=== PATIENT | female | born 1975 | race Caucasian/White ===

== ENCOUNTER → 2016-04-02 | Outpatient (CLI) | payer BC ==
[~2016-04-02] MED LIST: DROS1TAB24 PO; NORT25CA PO
== END | disposition home or self-care (01) ==
LOC: C.PAPS 08:21
PROVIDERS: ATTEND Obstetrics & Gynecology
DX: Z01.419 Encounter for gynecological examination (general) (routine) without abnormal findings (principal)

== ENCOUNTER → 2016-07-11 | Outpatient (CLI) | payer BC ==
--- NOTE | 2016-07-11 11:11 | DIAGNOSTIC IMAGING REPORT ---
RIGHT FOOT 3 VIEWS CLINICAL HISTORY: Right foot pain. FINDINGS: 3 views of the right foot are compared to study dated 07/26/2015. The skeletal structures are well mineralized. No fracture is seen. The joint spaces of the foot are well-maintained. A large plantar calcaneal enthesophyte is observed. The overlying soft tissues are normal in appearance. IMPRESSION: No acute bony abnormality is seen in the right foot noting a large plantar heel spur. Electronically signed by: Aries Enriquez M.D. 07/11/2016 11:09 AM Dictated Date/Time: 07/11/2016 11:08 AM
== END | disposition home or self-care (01) ==
LOC: C.RDSM 12:03
PROVIDERS: ATTEND Physician Assistant
DX: M79.671 Pain in right foot (principal)

== ENCOUNTER → 2016-11-04 | Outpatient (CLI) | payer BC ==
--- NOTE | 2016-11-04 10:09 | DIAGNOSTIC IMAGING REPORT ---
RIGHT HAND MIN 3 VIEWS ROUTINE CLINICAL HISTORY: M13.0 Polyarthritis, [id number] right hand pain COMPARISON: None. DISCUSSION: The bony mineralization appears normal. There are no fractures or subluxations. The joint spaces appear preserved for age. There are no erosive changes. IMPRESSION: No bony abnormalities identified. Electronically signed by: Alden Justice M.D. 11/04/2016 10:08 AM Dictated Date/Time: 11/04/2016 10:07 AM
--- NOTE | 2016-11-04 10:24 | DIAGNOSTIC IMAGING REPORT ---
LEFT HAND MIN 3 VIEWS ROUTINE CLINICAL HISTORY: M13.0 Polyarthritis, [id number] Hand pain, rightBothRAD7 pain. COMPARISON: None. DISCUSSION: The bones and joint spaces appear intact. There is no evidence of fracture, dislocation or bony disease. There is no evidence for soft tissue swelling. IMPRESSION: Negative study. The above report was generated using voice recognition software. It may contain grammatical, syntax or spelling errors. Electronically signed by: Damien Back M.D. 11/04/2016 10:23 AM Dictated Date/Time: 11/04/2016 10:22 AM
--- NOTE | 2016-11-04 10:25 | DIAGNOSTIC IMAGING REPORT ---
SI JOINTS 3 OR MORE VIEWS CLINICAL HISTORY: Low back pain. COMPARISON STUDY: CT of the abdomen and pelvis February 03, 2013. FINDINGS: The sacroiliac joints are intact without evidence for ankylosis. No fracture or suspicious lesion is identified. There is mild osteoarthrosis of both sacroiliac joints. No definite erosions are identified. 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 Electronically signed by: Kike Agudelo M.D. 11/04/2016 10:24 AM Dictated Date/Time: 11/04/2016 10:22 AM
== END | disposition home or self-care (01) ==
LOC: C.RAD1850 09:33
PROVIDERS: ATTEND Internal Medicine Rheumatology
DX: M54.5 Low back pain (principal); M13.0 Polyarthritis, unspecified; M79.641 Pain in right hand

== ENCOUNTER → 2017-05-29 | Outpatient (CLI) | payer BC | END | disposition home or self-care (01) | LOC: C.PAPS 15:14 | PROVIDERS: ATTEND Obstetrics & Gynecology | DX: Z01.419 Encounter for gynecological examination (general) (routine) without abnormal findings (principal) ==

== ENCOUNTER → 2017-06-09 | Outpatient (CLI) | payer BC ==
--- NOTE | 2017-06-09 15:13 | DIAGNOSTIC IMAGING REPORT ---
Thyroid ultrasonography CLINICAL HISTORY: Abnormal thyroid function tests COMPARISON STUDY: No previous studies for comparison. FINDINGS: The right lobe of thyroid measures 54 x 15 x 20 mm. The left lobe measures 50 x 17 x 15 mm. No thyroid masses are visualized. IMPRESSION: Unremarkable thyroid ultrasound. Electronically signed by: Alden Justice M.D. 06/09/2017 3:11 PM Dictated Date/Time: 06/09/2017 3:11 PM
== END | disposition home or self-care (01) ==
LOC: C.ULTR 14:47
PROVIDERS: ATTEND Family Medicine
DX: E07.89 Other specified disorders of thyroid (principal)

== ENCOUNTER 2017-07-08 14:26 | Emergency (ER) | payer BC ==
[~2017-07-08] VITALS: Ht 177.8 cm; Wt 111.8 kg
[2017-07-08 14:30] VITALS: TEMP 37; Ht 177.8 cm; Wt 111.8 kg
[2017-07-08] MEDS ORDERED: SODIUM CHLORIDE 0.9% 1000ML 1,000 ML IV STA (14:41)
[2017-07-08] MEDS ORDERED: DiphenhydrAMINE HCL 50 MG/ML VIAL IV STA (14:41)
[2017-07-08] MEDS ORDERED: PROCHLORPERAZINE 5 MG/ML 2 ML VIAL IV STA (14:41)
[2017-07-08 15:10] LABS: BASO % 0.5 %; BASO ABS # 0.04 K/uL (0-0.2); EOS % 1.7 %; EOS ABS # 0.14 K/uL (0-0.5); HEMATOCRIT 39.4 % (37-47); HEMOGLOBIN 13.6 g/dL (12.0-16.0); IG# 0.03 K/uL (0.00-0.02); LYMPH % 31.1 %; LYMPH ABS # 2.61 K/uL (1.2-3.4); MEAN CELL VOLUME 85.3 fL (80-100); MEAN CORPUSCULAR HEMOGLOBIN 29.4 pg (25-34); MEAN CORPUSCULAR HGB CONC 34.5 g/dl (32-36); MONO % 9.2 %; MONO ABS # 0.77 K/uL (0.11-0.59); NEUT % 57.1 %; PLATELET COUNT 310 K/uL (130-400); RED CELL DISTRIBUTION WIDTH CV 12.9 % (11.5-14.5); RED CELL DISTRIBUTION WIDTH SD 40.2 fL (36.4-46.3); WHITE BLOOD COUNT 8.39 K/uL (4.8-10.8)
[2017-07-08 15:31] LABS: INR 0.9 (0.9-1.1); PTT PATIENT 25.4 SECONDS (21.0-31.0)
--- NOTE | 2017-07-08 15:38 | DIAGNOSTIC IMAGING REPORT ---
HEAD WITHOUT CONTRAST (CT) CLINICAL HISTORY: 41 years-old Female with headache, dizziness, blurred vision. Acute headache with dizziness TECHNIQUE: Multiple axial CT images of the head were obtained without contrast. A dose lowering technique was utilized adhering to the principles of ALARA. CT DOSE: 580.48 mGy.cm COMPARISON: CT of the orbits and CT head 07/30/2013. FINDINGS: No acute intracranial hemorrhage, midline shift, intracranial mass, hydrocephalus, territorial ischemia or abnormal extra-axial collection. The calvarium is intact. The paranasal sinuses, mastoid air cells, and middle ear cavities are clear. IMPRESSION: No acute intracranial abnormality. The above report was generated using voice recognition software. It may contain grammatical, syntax or spelling errors. Electronically signed by: Yfn Persaud M.D. 07/08/2017 3:36 PM Dictated Date/Time: 07/08/2017 3:35 PM
[2017-07-08] MEDS ORDERED: HYDR200T5 PO (15:40)
[2017-07-08] MEDS ORDERED: MELO-83 PO (15:40)
[2017-07-08] MEDS ORDERED: ELET40TA PO (15:40)
[2017-07-08] MEDS ORDERED: HYDR25TA4 PO (15:40)
[2017-07-08] MEDS ORDERED: OMEP10CA4 PO (15:40)
[2017-07-08 15:42] LABS: ALBUMIN 3.5 gm/dl (3.4-5.0); ALKALINE PHOSPHATASE 52 U/L (45-117); ALT/SGPT 27 U/L (12-78); AST/SGOT 16 U/L (15-37); BLOOD UREA NITROGEN 14 mg/dl (7-18); CALCIUM 8.7 mg/dl (8.5-10.1); CARBON DIOXIDE 27 mmol/L (21-32); CREATININE 0.98 mg/dl (0.60-1.20); GLUCOSE 88 mg/dl (70-99); SODIUM 141 mmol/L (136-145); TOTAL PROTEIN 7.2 gm/dl (6.4-8.2)
--- NOTE | 2017-07-08 15:45 | EMERGENCY ROOM VISIT NOTE ---
History First contact with patient: 14:31 Chief Complaint: HEADACHE Stated Complaint: HEADACHE, MIGRAINE History of Present Illness The patient is a 41 year old female who presents to the Emergency Room via private vehicle with complaints of "headache, migraine". The patient states that she has been experiencing a migraine headache for about 3 weeks. It was of gradual onset but is now increased in severity. She has tried her prescribed medications without relief. Nothing is making it go away. She notes that it is now severe enough to make her feel nauseous and nearly vomit. She has associated dizziness and minimal blurred vision which is transient. She has not had a headache like this before. No trauma or injury to the head. She rates the pain as a 10/10. She denies any other medical problems, fevers, chills, chest pain or shortness of breath. No recent illness, no history of meningitis, no chance of , nothing makes it better or worse. Of additional note she does state that she takes Plaquenil and meloxicam for her arthritis. Review of Systems A complete 10-point Review of Systems was discussed with the patient, with pertinent positives and negatives listed in the History of Present Illness. All remaining Review of Systems questions can be considered negative unless otherwise specified. Past Medical/Surgical History Surgical Problems: (1) S/P cholecystectomy Family History Noncontributory Social History Smoking Status: Never Smoker Alcohol Use: occasionally Marital Status: Housing Status: lives with family Occupation Status: employed Current/Historical Medications Scheduled Drospirenone-Ethinyl Estradiol (Monica), 1 TABLET PO DAILY Hydrochlorothiazide (Hctz), 25 MG PO DAILY Hydroxychloroquine Sulfate (Plaquenil), 200 MG PO DAILY Meloxicam (Meloxicam), 15 MG PO DAILY Omeprazole (Prilosec), 10 MG PO DAILY Scheduled PRN Eletriptan (Relpax), 40 MG PO DIRECTED PRN for Migraine Physical Exam Vital Signs Date Time Temp Pulse Resp B/P (MAP) Pulse Ox O2 Delivery O2 Flow Rate FiO2 07/08/17 19:40 73 16 124/78 97 07/08/17 18:59 68 16 141/76 96 Room Air 07/08/17 17:58 57 16 137/81 97 Room Air 07/08/17 16:20 62 16 141/80 96 Room Air 07/08/17 14:30 37.0 74 18 162/90 98 Room Air Physical Exam VITAL SIGNS - Vital signs and nursing notes were reviewed. Stable. Afebrile. GENERAL -41-year-old female appearing her stated age who is in no acute distress. Communicates well with provider and answers questions appropriately. SKIN - Without rashes. No meningeal or petechial rash. HEAD - NC/AT. EYES - PERRL with EOMI bilaterally. Sclera anicteric. EARS - No deformities of external structures noted on gross examination bilaterally. External auditory canals without discharge or otorrhea. Tympanic membranes pearly shankar without retraction or bulging. No fluid or purulent material visualized behind the TM. Handle of malleus, umbo, cone of light, pars tensa/flaccid all easily visualized. NOSE - Midline and without cyanosis. No epistaxis or purulent drainage noted.\\ MOUTH/OROPHARYNX - Without perioral cyanosis. Buccal mucosa pink and moist and without leukoplakia. Tongue midline with equal elevation of palate bilaterally. No tonsillar hypertrophy, erythema, or exudates noted. Fair dentition noted. NECK - Neck with FROM. Supple to palpation. No lymphadenopathy noted. No nuchal rigidity. EXTREMITIES - No clubbing or peripheral cyanosis. No pretibial edema present. +5 /5 strength noted in UE/LE bilaterally. NEUROLOGIC - Cranial nerves II through XII grossly intact. Sensory intact to light touch throughout. PSYCH - A&O, and cooperates fully with examiner. Pt is very pleasant and interacts well with examiner. Medical Decision & Procedures ER Provider Diagnostic Interpretation: HEAD WITHOUT CONTRAST (CT) CLINICAL HISTORY: 41 years-old Female with headache, dizziness, blurred vision. Acute headache with dizziness TECHNIQUE: Multiple axial CT images of the head were obtained without contrast. A dose lowering technique was utilized adhering to the principles of ALARA. CT DOSE: 580.48 mGy.cm COMPARISON: CT of the orbits and CT head 07/30/2013. FINDINGS: No acute intracranial hemorrhage, midline shift, intracranial mass, hydrocephalus, territorial ischemia or abnormal extra-axial collection. The calvarium is intact. The paranasal sinuses, mastoid air cells, and middle ear cavities are clear. IMPRESSION: No acute intracranial abnormality. The above report was generated using voice recognition software. It may contain grammatical, syntax or spelling errors. Electronically signed by: Yfn Persaud M.D. 07/08/2017 3:36 PM Dictated Date/Time: 07/08/2017 3:35 PM Laboratory Results 07/08/17 14:55 Red Blood Count 4.62, Mean Corpuscular Volume 85.3, Mean Corpuscular Hemoglobin 29.4, Mean Corpuscular Hemoglobin Concent 34.5, Mean Platelet Volume 9.0, Neutrophils (%) (Auto) 57.1, Lymphocytes (%) (Auto) 31.1, Monocytes (%) (Auto) 9.2, Eosinophils (%) (Auto) 1.7, Basophils (%) (Auto) 0.5, Neutrophils # (Auto) 4.80, Lymphocytes # (Auto) 2.61, Monocytes # (Auto) 0.77, Eosinophils # (Auto) 0.14, Basophils # (Auto) 0.04 07/08/17 14:55 Test 07/08/17 14:55 07/08/17 16:22 White Blood Count 8.39 K/uL (4.8-10.8) Red Blood Count 4.62 M/uL (4.2-5.4) Hemoglobin 13.6 g/dL (12.0-16.0) Hematocrit 39.4 % (37-47) Mean Corpuscular Volume 85.3 fL (80-100) Mean Corpuscular Hemoglobin 29.4 pg (25-34) Mean Corpuscular Hemoglobin Concent 34.5 g/dl (32-36) Platelet Count 310 K/uL (130-400) Mean Platelet Volume 9.0 fL (7.4-10.4) Neutrophils (%) (Auto) 57.1 % Lymphocytes (%) (Auto) 31.1 % Monocytes (%) (Auto) 9.2 % Eosinophils (%) (Auto) 1.7 % Basophils (%) (Auto) 0.5 % Neutrophils # (Auto) 4.80 K/uL (1.4-6.5) Lymphocytes # (Auto) 2.61 K/uL (1.2-3.4) Monocytes # (Auto) 0.77 K/uL (0.11-0.59) Eosinophils # (Auto) 0.14 K/uL (0-0.5) Basophils # (Auto) 0.04 K/uL (0-0.2) RDW Standard Deviation 40.2 fL (36.4-46.3) RDW Coefficient of Variation 12.9 % (11.5-14.5) Immature Granulocyte % (Auto) 0.4 % Immature Granulocyte # (Auto) 0.03 K/uL (0.00-0.02) Prothrombin Time 9.8 SECONDS (9.0-12.0) Prothromb Time International Ratio 0.9 (0.9-1.1) Activated Partial Thromboplast Time 25.4 SECONDS (21.0-31.0) Partial Thromboplastin Ratio 1.0 Anion Gap 5.0 mmol/L (3-11) Est Creatinine Clear Calc Drug Dose 103.4 ml/min Estimated GFR () 83.6 Estimated GFR (Non- 72.2 BUN/Creatinine Ratio 14.5 (10-20) Calcium Level 8.7 mg/dl (8.5-10.1) Magnesium Level 2.4 mg/dl (1.8-2.4) Total Bilirubin 0.5 mg/dl (0.2-1) Aspartate Amino Transf (AST/SGOT) 16 U/L (15-37) Alanine Aminotransferase (ALT/SGPT) 27 U/L (12-78) Alkaline Phosphatase 52 U/L (45-117) Troponin I < 0.015 ng/ml (0-0.045) Total Protein 7.2 gm/dl (6.4-8.2) Albumin 3.5 gm/dl (3.4-5.0) Globulin 3.7 gm/dl (2.5-4.0) Albumin/Globulin Ratio 0.9 (0.9-2) Thyroid Stimulating Hormone (TSH) 1.630 uIu/ml (0.300-4.500) Lyme Disease IgG Antibody NEG (NEG) Lyme Disease IgM Antibody NEG (NEG) Urine Color YELLOW Urine Appearance CLEAR (CLEAR) Urine pH 7.0 (4.5-7.5) Urine Specific [place] 1.005 (1.000-1.030) Urine Protein NEG (NEG) Urine Glucose (UA) NEG (NEG) Urine Ketones NEG (NEG) Urine Occult Blood NEG (NEG) Urine Nitrite NEG (NEG) Urine Bilirubin NEG (NEG) Urine Urobilinogen NEG (NEG) Urine Leukocyte Esterase SMALL (NEG) Urine WBC (Auto) 5-10 /hpf (0-5) Urine RBC (Auto) 0-4 /hpf (0-4) Urine Hyaline Casts (Auto) 1-5 /lpf (0-5) Urine Epithelial Cells (Auto) 20-30 /lpf (0-5) Urine Bacteria (Auto) NEG (NEG) Urine Test NEG (NEG) Medications Administered Medications (Trade) Dose Ordered Sig/Dimitri Route Start Time Stop Time Status Last Admin Dose Admin Sodium Chloride 1,000 ml @ 999 mls/hr Q1H1M STAT IV 07/08/17 14:41 07/08/17 15:41 DC 07/08/17 15:12 999 MLS/HR Diphenhydramine HCl (Benadryl Inj) 50 mg NOW STAT IV 07/08/17 14:41 07/08/17 14:44 DC 07/08/17 15:12 50 MG Prochlorperazine Edisylate (Compazine Inj) 10 mg NOW STAT IV 07/08/17 14:41 07/08/17 14:44 DC 07/08/17 15:12 10 MG Magnesium Sulfate (Magnesium Sulfate 1gm / D5W) 1 gm NOW STAT IV 07/08/17 15:50 07/08/17 15:52 DC 07/08/17 16:16 1 GM Dexamethasone Sodium Phosphate (Dexamethasone Inj Pf) 10 mg NOW STAT IV 07/08/17 15:50 07/08/17 15:52 DC 07/08/17 16:16 10 MG Haloperidol Lactate 5 mg/ Sodium Chloride 501 ml @ 999 mls/hr Q31M ONCE IV 07/08/17 17:45 07/08/17 18:15 DC 07/08/17 17:54 999 MLS/HR Medical Decision Patient was seen and evaluated as above in room a 12. Review was performed of nursing notes and vital signs. After obtaining a thorough history and physical examination the above work up was performed. She presents with a headache 3 weeks. No fever. No signs of meningitis on exam. Benefit versus risk of obtaining lumbar puncture was extensively discussed with the patient numerous times throughout her stay and through joint decision making this was felt to be a greater risk than benefit. Based on labs were obtained. There is no concerning leukocytosis or anemia. Coags normal. Metabolic panel reveals no evidence of kidney or liver failure. Troponin negative. TSH normal. Urine does not reveal any evidence of UTI. test negative. Lyme testing negative. CT scan was obtained of the head and was found to be negative. She was initially given Compazine and Benadryl with minimal relief of her symptoms as well as 1 L of normal saline. Toradol was going to be used but she notes that he took meloxicam. She was reevaluated pain persisted therefore she was given magnesium sulfate as well as Decadron. Her pain persisted. She was then given 5 mg of Haldol IV mixed and 500 mL's of normal saline and given as a bolus. She was reevaluated and was feeling completely pain-free. She was not groggy and was communicating well. I believe she is stable for outpatient management. I do not suspect that there is any underlying emergent cause. She is to call the family doctor or return with worsening. There is no neurologic deficit on exam, no fever, no leukocytosis, no evidence of meningitis and collectively decided against lumbar puncture with the patient. The patient was educated upon management, had questions answered prior to discharge, and was discharged home in good condition. Case was discussed with the attending physician. In the evaluation and treatment of this patient, the following differential diagnoses were considered: Migraine Headache, Intracranial Hemorrhage, Subdural Hematoma, Subarachnoid Hemorrhage, Cerebral Aneurysm, Temporal/Giant Cell Arteritis, Tension Headache, Meningitis, Encephalitis, or Hydrocephalus. Impression Primary Impression: Headache Departure Information Dispostion Home / Self-Care Condition GOOD Referrals Darryl Medina M.D. (PCP) Patient Instructions [facility] Additional Instructions You have been treated in the Emergency Department for a Headache. You have received pain medicine in the emergency department which impairs your ability to operate a vehicle. It is illegal for you to drive after receiving these medicines. For pain control, you can use the following [id number] medicines - Regular strength (325mg/tab) Tylenol (acetaminophen) 2 tabs every 4-6 hours as needed. Do not exceed 12 tablets in a 24 hour period. Avoid taking more than 3 grams (3000 mg) of Tylenol per day. This includes any other sources of acetaminophen you may take on a regular basis. You may continue your regular medications You should relax in a quiet, dark place for the rest of the day. Avoid any possible triggers including: cigarette smoke, caffeine, nicotine, chocolate, wine, beer, loud noises or music, or bright lights. You should schedule a follow-up appointment as soon as possible with your Primary Care Provider or established Neurologist for further evaluation and treatment of your Headache. Return to the Emergency Department if your current symptoms worsen despite treatment course outlined above, or if you develop any of the following symptoms : intractable pain despite aforementioned treatment course, visual disturbances , loss of vision, unilateral weakness or facial drooping, slurring of speech, loss of coordination, or loss of consciousness.
[2017-07-08] MEDS ORDERED: DEXAMETHASONE **PF** INJ 10 MG/ML VIAL IV STA (15:50)
[2017-07-08] MEDS ORDERED: MAGNESIUM SULFATE 1GM / D5W 1 GM BAG IV STA (15:50)
[2017-07-08] MEDS ORDERED: NSS IV ONE (17:45)
[2017-07-08] MEDS ORDERED: HALOPERIDOL IV ONE (17:45)
[2017-07-08 19:40] VITALS: BP 124/78; PULSE 73; O2SAT 97
== END 2017-07-08 19:40 | disposition home or self-care (01) ==
LOC: C.EDB 14:27 → C.EDA 19:40
DX: R51 Headache (principal); Z79.899 Other long term (current) drug therapy; M19.90 Unspecified osteoarthritis, unspecified site

== ENCOUNTER → 2017-10-10 | Outpatient (CLI) | payer BC ==
[~2017-10-10] MED LIST changes: +ELET40TA PO; +HYDR200T5 PO; +HYDR25TA4 PO; +MELO-83 PO; -NORT25CA PO; +OMEP10CA4 PO
[2017-10-10 17:15] LABS: BASO % 0.4 %; BASO ABS # 0.03 K/uL (0-0.2); EOS % 0.5 %; EOS ABS # 0.04 K/uL (0-0.5); HEMATOCRIT 37.1 % (37-47); HEMOGLOBIN 12.6 g/dL (12.0-16.0); IG# 0.02 K/uL (0.00-0.02); LYMPH % 34.1 %; LYMPH ABS # 2.66 K/uL (1.2-3.4); MEAN CELL VOLUME 85.7 fL (80-100); MEAN CORPUSCULAR HEMOGLOBIN 29.1 pg (25-34); MEAN PLATELET VOLUME 9.8 fL (7.4-10.4); MONO % 6.4 %; NEUT % 58.3 %; NEUT ABS # 4.54 K/uL (1.4-6.5); PLATELET COUNT 314 K/uL (130-400); RED CELL DISTRIBUTION WIDTH CV 12.9 % (11.5-14.5); RED CELL DISTRIBUTION WIDTH SD 40.3 fL (36.4-46.3); WHITE BLOOD COUNT 7.79 K/uL (4.8-10.8)
[2017-10-10 17:52] LABS: ALBUMIN 3.3 gm/dl (3.4-5.0); ALKALINE PHOSPHATASE 46 U/L (45-117); ALT/SGPT 17 U/L (12-78); AST/SGOT 13 U/L (15-37); CREATININE 1.09 mg/dl (0.60-1.20)
== END | disposition home or self-care (01) ==
LOC: C.LAB1850 15:02
PROVIDERS: ATTEND Internal Medicine Rheumatology
DX: M13.0 Polyarthritis, unspecified (principal)

== ENCOUNTER 2018-09-01 14:21 | Inpatient (IN) ==
[2018-09-01] MEDS ORDERED: MoRPHine SULFATE 4 MG/ML 1 ML CARP\\VIAL IV STA (15:08)
[2018-09-01] MEDS ORDERED: ENOXAPARIN 1.5 MG/KG SC SCH (15:15)
[2018-09-01 15:25] LABS: Basophils # (auto) 0.05 K/uL (0-0.2); Basophils % (auto) 0.3 %; Eosinophils # (auto) 0.15 K/uL (0-0.5); Hematocrit (blood only) 42.4 % (37-47); Hemoglobin 14.7 g/dL (12.0-16.0); Immature Granulocytes # (auto) 0.14 K/uL (0.00-0.02); Immature Granulocytes % (auto) 0.9 %; Lymphocytes # (auto) 3.44 K/uL (1.2-3.4); Lymphocytes % (auto) 23.3 %; Mean Corpuscular Hgb Conc 34.7 g/dL (32-36); Mean Corpuscular Volume 87.8 fL (80-100); Mean Platelet Volume 9.3 fL (7.4-10.4); Monocytes # (auto) 1.11 K/uL (0.11-0.59); Monocytes % (auto) 7.5 %; Neutrophils # (auto) 9.86 K/uL (1.4-6.5); Platelet Count 350 K/uL (130-400); RDW Coefficient of Variation 12.8 % (11.5-14.5); RDW Standard Deviation 41.2 fL (36.4-46.3); Red Blood Count 4.83 M/uL (4.2-5.4); White Blood Count 14.75 K/uL (4.8-10.8)
[2018-09-01 15:40] LABS: BUN Creatinine Ratio 10.1 (10-20); Blood Urea Nitrogen 12 mg/dl (7-18); Calcium 9.2 mg/dl (8.5-10.1); Carbon Dioxide 24 mmol/L (21-32); Chloride 106 mmol/L (98-107); Creatinine Clr Calc Pharmacy 85.2 ml/min; Est GFR (African American) 68.4; Est GFR (Non-African American) 59.1; Glucose 139 mg/dl (70-99); Magnesium 2.4 mg/dl (1.8-2.4); Potassium 3.6 mmol/L (3.5-5.1); Sodium 138 mmol/L (136-145)
[2018-09-01 15:44] LABS: Troponin I < 0.015 ng/ml (0-0.045)
[2018-09-01] MEDS ORDERED: ENOXAPARIN 150 MG/ML SYR SQ ONE (16:00)
[2018-09-01] MEDS ORDERED: OPTIRAY 320 125ml IV PRN (16:18)
--- NOTE | 2018-09-01 16:28 | CT Scan Report ---
CT ANGIOGRAPHY OF THE CHEST, PULMONARY EMBOLUS PROTOCOL CLINICAL HISTORY: Shortness of breath. DVT. COMPARISON STUDY: Chest CT March 01, 2013. Chest radiograph November 02, 2017. TECHNIQUE: Following IV administration of 119 mL of Optiray-320, helical axial images of the chest we re obtained utilizing the pulmonary embolus protocol. Maximal intensity projections and sagittal and coronal reformats were viewed on an independent 3D workstation. IV contrast was administered withou t complication. Automated exposure control was utilized for the study. A dose lowering technique wa s utilized adhering to the principles of ALARA. CT DOSE: 793.06 mGy.cm FINDINGS: Multiple acute appearing bilateral pleural emboli are noted, including emboli within the d istal left pulmonary artery which extend into the segmental branch of the apicoposterior segment of t he left upper lobe and lingula. In addition, there is moderate thrombus within the left lower lobe pu lmonary artery extending into several segmental branches within the left lower lobe. Segmental emboli within the right lower lobe are noted. There is no CT evidence for right heart strain. No pulmonary infarct is noted. A 9 mm cystic lesion within the left upper lobe on image 227 of 308 is unchanged si nce CT of March 01, 2013. This is benign. There are trace bilateral pleural effusions. There is no pneumothorax. Bony thorax and upper abdomen are unremarkable. IMPRESSION: 1. Numerous acute appearing bilateral pulmonary emboli, including emboli within the distal left pulmo nary artery. No saddle embolus. No CT evidence for right heart strain. No pulmonary infarct. 2. Trace bilateral pleural effusions. Electronically signed by: Kike Agudelo M.D. 09/01/2018 4:27 PM
--- NOTE | 2018-09-01 18:41 | History & Physical Report ---
Date of Service September 01, 2018 Assessment & Plan (1) Bilateral pulmonary embolism: Wilma is a 42-year-old female with a past medical history of psoriatic arthritis and recent arthroscopic meniscus repair of her right knee who presents with approximately 1 week of worsening pain in her right leg and 1 day of increased shortness of breath, pain with inspiration, and sharp pain in her mid chest. She has confirmed R DVT and bilateral PE. Bilateral non-saddle PE 2/2 provoked right DVT Provoked in the setting of right knee surgery 1 week ago Right popliteal/tibial DVT confirmed on Doppler Bilateral PE with left PA emboli, no saddle embolus, no areas of infarct, no evidence of right heart strain on CTA. Received 1.5 mpk enoxaparin in ED. Continue therapeutic daily enoxaparin dosing, plan to transition to Xa for ongoing treatment. PESI class I, very low risk for 30-day mortality Discontinue Sprintec OCP Chest pain Troponin X1 negative Patient having 79/10 intermittent chest pain with shortness of breath -EKG: Normal sinus rhythm, no ST deviation Admit for observation overnight, trend troponins 6 and 12 hours Suspect 2/2 PE as above, tramadol 50 mg for pain but with troponins as above for cardiac rule out Psoriatic arthritis Well-controlled with methotrexate weekly (7.5 mg on Fridays) and hydroxychloroquine 200 mg twice daily Continue hydroxychloroquine GERD - [employer] omeprazole converted to Protonix Anxiety Hydroxyzine x1, nightly as needed for anxiety DVT prophylaxis: Therapeutic anticoagulation with enoxaparin/Xa as above Diet: Regular CODE STATUS: Full code Disposition: Admit to med/surge for observation (2) Chest pain: (3) DVT (deep venous thrombosis): (4) Acute deep vein thrombosis (DVT) of femoral vein: History of Present Illness Chief Complaint: Chest Pain, Shortness of Breath Primary Care Provider: Darryl Medina Wilma is a 42-year-old female with a past medical history of psoriatic arthritis and recent arthroscopic meniscus repair of her right knee who presents with approximately 1 week of worsening pain in her right leg and 1 day of increased shortness of breath, pain with inspiration, and sharp pain in her mid chest. Reports she contacted her surgeon Dr. Young went to his office for a follow-up appointment this morning and was found to have a right DVT on Doppler. She was referred to the emergency department for further management, by the time she had arrived here she had developed shortness of breath and chest pain. She did not experience shortness of breath or chest pain prior to today. She rates her pain as 7/10 at rest which intermittently worsens to 9/10 several times an hour. The pain is sharp in quality and worsened by inspiration. She does not know any remitting factors. She also has tight achy pain in her right calf. Denies palpitations. Denies fever, chills. She had one episode of feeling sweaty and flushed while walking which has since resolved. She has no prior history of blood clots. Medical history: Psoriatic arthritis Surgical history: Bilateral shoulder repair, left foot surgery without hardware placement. Right meniscus repair as noted in HPI above. Family history: History of neck clot in her brother, and PE in her sister. No family history of bleeding disorders. Denies history of stroke. No history of coronary artery disease or early [place]. Medications: Folic acid, hydrocodoneAPAP, hydroxychloroquine, methotrexate, Sprintec, omeprazole Social history: Lives involvement with her , mother, and children. Alcohol use: Spare Tobacco: No current or former use. Recreational drugs: None. Allergies Allergy/AdvReac Type Severity Reaction Status Date / Time No Known Allergies Allergy Verified 09/01/18 16:05 Home Medications Home Medications Medication Instructions Recorded Confirmed Type eletriptan 40 mg PO DIRECTED PRN 11/02/17 09/01/18 History hydroxychloroquine 200 mg PO AMPM 11/02/17 09/01/18 History methotrexate sodium 7.5 mg PO WK 11/02/17 09/01/18 History norgestimate-ethinyl estradiol 1 tab PO DAILY 11/02/17 09/01/18 History [Sprintec (28)] omeprazole 10 mg PO QAM 11/02/17 09/01/18 History folic acid 1 mg PO DAILY 09/01/18 09/01/18 History hydrocodone-acetaminophen 1 tab PO Q6H PRN 09/01/18 09/01/18 History Past Med/Surg History Medical History Helicobacter pylori (H. pylori) infection (Acute) Mucocele of orbital region (Acute) Arthritis (Chronic) Bronchitis (Inactive) Cough (Inactive) Surgical History S/P cholecystectomy (Resolved) Social History Preferred Language: French Visual Impairment: No Limitations Hearing Ability: Normal Feels Safe at Home: Yes Smoking Status: Never smoker Hx Alcohol Use: No Hx Substance Use: No Review of Systems Review of Systems: Constitutional: Denies fever, malaise, weight change. Chills as noted in HPI Eyes: Denies double vision, vision change, eye pain ENT: Denies ear pain, sore throat, sinus pain Cardiovascular: Endorses chest pain as noted in HPI. Respiratory: Endorses dyspnea, pain on inspiration as noted in HPI. Denies sputum production. Gastrointestinal: Denies abdominal pain, nausea, vomiting, constipation, diarrhea Genitourinary: Denies pain with urination, urinary urgency, urinary frequency Musculoskeletal: Denies weakness. Endorses R leg pain and swelling. Integumentary:Denies rash, lesions, bruising Neurological: Denies headache, numbness, tingling, focal weakness Physical Exam Physical Exam: General: A&Ox3. NAD. Cooperative. HEENT: Atraumatic, normocephalic. Pupils equal and reactive to light and accommodation. Visual acuity grossly intact. No visual field cuts. No facial asymmetry. Facial sensation intact in all distributions and symmetrical. Pulm: CTAB A&P. -wheezes, -rales, -rhonchi. Symmetrical chest rise. No increase work of breathing. No respiratory distress. Cardiac: RRR, -mrg. Radial pulses intact and symmetrical. Abdominal: Nontender, nondistended, soft. BS present. Extremity: Right knee with 2 postsurgical incisions, well-healing, suture in place. No warmth/erythema/discharge at incision sites. Right leg with increased diameter compared to the left leg. Right leg without excess warmth. Right calf tender to palpation through the knee. Homans sign positive in right leg. Left leg without swelling, tenderness. Sensation intact to soft touch in distal extremities without deficit. Full strength and range of motion in upper extremities Results & Data Vital Signs (Past 12 Hours) Vital Signs Temp Pulse Pulse Resp BP BP Pulse Ox 09/01/18 18:20 76 18 127/85 98 09/01/18 16:33 73 18 129/78 98 09/01/18 14:51 36.7 C 95 H 20 147/92 H 97 Supervising Physician Co-Signing Physician Notes Patient seen and examined, chart reviewed, case discussed with Dr. Quezada and I agree with his assessment and plan as documented above. Briefly, patient is a 42yo C female with recent arthroscopic procedure of the right knee presenting with RLE DVT and bilateral PE. She is complaining of severe pleuritic CP. No SOB, dizziness, syncope On exam she is afebrile, hemodynamically stable, NAD Skin: RLE surgical site with sutures in place, no bleeding/erythema or discharge HEENT: NC/AT, PERRL, EOMI, neck supple, no JVD Heart: +S1/S2, regular, no m/r/g Lungs: shallow breaths secondary to discomfort, non rales/rhonchi/wheezing Abd: +BS, soft, NT/ND Ext: +edema RLE Neuro: grossly nonfocal Labs and images reviewed. Neutrophil predominant leukocytosis - WBC=14.75. CTA with numerous acute appearing bilateral PE including emboli within the distal left pulmonary artery. no saddle embolus. No CT evidence for right heart strain. No pulmonary infarct. Trace pleural effusions. EKG with no evidence for right heart strain. Assessment/Plan: 42yo C female with provoked DVT/PE in setting of recent procedure, on OCPs -Admit to medical floor -Lovenox with transition to NOAC with assistance from CM -Pain management with morphine PRN -Anxiety management with Hydroxyzine PRN -Discontinue OCPs -Remainder of plan as above PG Care Time/CCT Total # of Minutes Spent Total Time Spent with Patient: Total time spent is greater than 50% in coordination of care (as documented) at patient's floor/unit and/or counseling patient: Resident Activity Tracking Resident Involvement: Resident Care Provided Care Provided: Adult Hospital Medicine (1) DVT (deep venous thrombosis) Affected thrombotic vein of extremity: popliteal Chronicity: acute DVT location: lower extremity Laterality: right Qualified Code(s): I82.431 - Acute embolism and thrombosis of right popliteal vein (2) Acute deep vein thrombosis (DVT) of femoral vein Laterality: right Qualified Code(s): I82.411 - Acute embolism and thrombosis of right femoral vein (3) Chest pain Chest pain type: unspecified Qualified Code(s): R07.9 - Chest pain, unspecified
[2018-09-01] MEDS ORDERED: LORazepam 1 MG TAB SL PRN (18:58)
[2018-09-01] MEDS: TRAMADOL HCL 50 MG TABLET PO PRN (19:30)
[2018-09-01] MEDS: MoRPHine SULFATE 2 MG/ML CARP IV PRN (20:48)
[2018-09-01 21:21] LABS: INR 0.9 (0.9-1.1); Partial Thromboplastin Ratio 1.1; Partial Thromboplastin Time 30.2 Seconds (21.0-31.0); Prothrombin Time 9.7 Seconds (9.0-12.0)
--- NOTE | 2018-09-01 22:06 | Emergency Department Note ---
Entered by Margi Laboy acting as a scribe for History of Present Illness General Chief complaint: Abnormal Labs/Diagnostic Testing Stated complaint: BLOOD CLOTS IN RT LEG, JUST HAS ULTR Time Seen by Provider: 09/01/18 14:59 Source: patient History of Present Illness Onset (ago): hour(s) (today) Location: lower extremity (calf) and right Pain Consistency: + other (episode) Maximum Pain Intensity: 7 Quality: + other (abnormal ultrasound) Associated symptoms: + chest pain (left-sided tightness), + shortness of breath and + other (positive right calf pain); no fever/chills Treatments prior to arrival: other (Hydrocodone) The patient is a 42 year old white female w/ PMHx of arthritis who presents to the ED w/ CC of an episode of abnormal ultrasound beginning just prior to arrival. The patient states that she had an ultrasound performed outpatient of her right calf that showed multiple DVTs and states that she was referred to the ED. The patient states that she has had pain in her right calf for several days. She states that she has had some intermittent left-sided chest tightness and shortness of breath during this time. The patient denies fevers or chills. She states that 6 days ago she had an arthroscopic procedure on her right knee. The patient reports being on control. She denies any recent travel or trauma. The patient states that she has been taking Hydrocodone for her pain. The patient denies a history of DVT. Home Medications Home Medications Medication Instructions Recorded Confirmed Type eletriptan 40 mg PO DIRECTED PRN 11/02/17 09/01/18 History hydroxychloroquine 200 mg PO AMPM 11/02/17 09/01/18 History methotrexate sodium 7.5 mg PO WK 11/02/17 09/01/18 History norgestimate-ethinyl estradiol 1 tab PO DAILY 11/02/17 09/01/18 History [Sprintec (28)] omeprazole 10 mg PO QAM 11/02/17 09/01/18 History folic acid 1 mg PO DAILY 09/01/18 09/01/18 History hydrocodone-acetaminophen 1 tab PO Q6H PRN 09/01/18 09/01/18 History Allergies Allergy/AdvReac Type Severity Reaction Status Date / Time No Known Allergies Allergy Verified 09/01/18 16:05 Past Med/Surg History Medical History Helicobacter pylori (H. pylori) infection (Acute) Mucocele of orbital region (Acute) Arthritis (Chronic) Bronchitis (Inactive) Cough (Inactive) Surgical History S/P cholecystectomy (Resolved) Social History Preferred Language: Turkmen Visual Impairment: No Limitations Hearing Ability: Normal Set Up Machinist Required: No Beliefs That Will Affect Care: None Current Living Situation: Spouse, Parent and Family Other Information That Helps Us Care for You: No Feels Safe at Home: Yes Safety Concerns: Feels Safe At This Time Smoking Status: Never smoker Do You Dip or Chew Tobacco: No Second Hand Exposure: No Hx Alcohol Use: Yes Hx Substance Use: No Review of Systems See HPI for pertinent positives & negatives. and A total of 10 systems reviewed and were otherwise negative Physical Exam Vital Signs Vital Signs - 24 hr 09/01/18 14:51 09/01/18 16:33 09/01/18 18:20 Temperature 36.7 C Temperature Source Oral Sepsis Recent Fever Within 48 Hours No Sepsis New/Unexplained Change in Mental Status No Sepsis Action Taken by Nursing No Action Required Pulse Rate 95 H Pulse Rate [Right Finger] 73 76 Pulse Rhythm Regular Pulse Rhythm [Right Finger] Regular Regular Pulse Strength Normal Pulse Strength [Right Finger] Normal Normal Respiratory Rate 20 18 18 Respiratory Effort / Characteristics Non-Labored Non-Labored Non-Labored Respiratory Depth Normal Normal Normal Respiratory Pattern Regular Regular Regular Blood Pressure 147/92 H Blood Pressure [Left Arm] 129/78 127/85 Blood Pressure Mean 110 Blood Pressure Mean [Left Arm] 95 99 Blood Pressure Position Sitting Blood Pressure Position [Left Arm] Lying Sitting Pulse Oximetry 97 98 98 Oxygen Delivery Method Room Air Room Air GENERAL: Mildly anxious in appearance, well nourished, NAD, non-toxic. EYE EXAM: Normal conjunctiva. PERRL, no anisocoria and EOM's grossly intact w/o pain. OROPHARYNX: Moist mucus membranes. Grossly normal dentition. NECK: Supple, no nuchal rigidity, no adenopathy, non-tender. no signs of meningismus. LUNGS: Clear to auscultation. Normal chest wall mechanics. HEART: NSR, no MRG. ABDOMEN: Abdomen soft, non-tender, normo-active bowel sounds, no masses, no rebound or guarding. BACK: No CVA TTP. SKIN: No rashes and no bruising. UPPER EXTREMITIES: Upper extremities are grossly normal. LOWER EXTREMITIES: Two well healing incisional sutures, one over each side of the knee. No erythema or drainage, nontender. Mild swelling and pain over the c skilled nursing and posteiror aspect of the knee. Compartments soft. NVI distally. Good pedal pulse. NEURO EXAM: A&O x3, cranial nerves II-XII grossly intact, normal speech, moves all 4 extremities on command w/o issue. Course 1504: Past medical records reviewed. The patient was evaluated in room B7. A complete history and physical exam was performed. 1637: I updated the patient on all results. She is in agreement with the treatment plan. 1642: I discussed the case with Dr. Rebolledo-[facility] Hospitalist who accepts the patient for further evaluation Administered Medications Morphine Sulfate (Morphine Sulfate) 1 mg IV Q4H PRN PRN Reason: Pain Stop: 09/15/18 20:29 Last Admin: 09/01/18 20:48 Dose: 1 mg Documented by: [id number] Tramadol HCl (Ultram) 50 mg PO Q6H PRN PRN Reason: Pain Stop: 10/01/18 18:57 Last Admin: 09/01/18 19:30 Dose: 50 mg Documented by: [id number] Discontinued Medications Enoxaparin Sodium (Lovenox 1.5 Mg/Kg Providers Use Dosing Set) 150 mg SC Q24H GRACIE Stop: 10/01/18 15:14 Last Admin: 09/01/18 16:06 Dose: 150 mg Documented by: [id number] Enoxaparin Sodium (Lovenox) 150 mg SQ ONE ONE Stop: 09/01/18 16:01 Last Admin: 09/01/18 16:12 Dose: Not Given Documented by: [id number] Hydroxyzine HCl (Vistaril) 25 mg PO NOW ONE Stop: 09/01/18 18:59 Last Admin: 09/01/18 19:31 Dose: 25 mg Documented by: [id number] Ioversol (Optiray 320 125ml) 119 ml IV ONCE PRN PRN Reason: Interaction Checking Stop: 09/05/18 16:17 Last Admin: 09/01/18 16:19 Dose: 119 ml Documented by: [id number] Lorazepam (Ativan) 1 mg SL NOW PRN PRN Reason: Anxiety Stop: 10/01/18 18:57 Last Admin: 09/01/18 19:31 Dose: 1 mg Documented by: [id number] Morphine Sulfate (Morphine Sulfate) 4 mg IV NOW STA Stop: 09/01/18 15:09 Last Admin: 09/01/18 15:36 Dose: 4 mg Documented by: [id number] Medical Decision Making Medical Records Attestation: I reviewed the patient's medical records. Home Medications Current Medication List: was personally reviewed by me Laboratory Data Attestation: I reviewed the patient's lab results. Result diagrams: 09/01/18 15:07 09/01/18 15:07 Lab Results 09/01/18 09/01/18 Range/Units 15:07 15:07 WBC 14.75 H (4.8-10.8) K/uL RBC 4.83 (4.2-5.4) M/uL Hgb 14.7 (12.0-16.0) g/dL Hct 42.4 (37-47) % MCV 87.8 (80-100) fL MCH 30.4 (25-34) pg MCHC 34.7 (32-36) g/dL RDW Std Deviation 41.2 (36.4-46.3) fL RDW Coeff of Mary 12.8 (11.5-14.5) % Plt Count 350 (130-400) K/uL MPV 9.3 (7.4-10.4) fL Immature Gran % (Auto) 0.9 % Neut % (Auto) 67.0 % Lymph % (Auto) 23.3 % [place] % (Auto) 7.5 % Eos % (Auto) 1.0 % Baso % (Auto) 0.3 % Immature Gran # (Auto) 0.14 H (0.00-0.02) K/uL Neut # (Auto) 9.86 H (1.4-6.5) K/uL Lymph # (Auto) 3.44 H (1.2-3.4) K/uL [place] # (Auto) 1.11 H (0.11-0.59) K/uL Eos # (Auto) 0.15 (0-0.5) K/uL Baso # (Auto) 0.05 (0-0.2) K/uL Sodium 138 (136-145) mmol/L Potassium 3.6 (3.5-5.1) mmol/L Chloride 106 (98-107) mmol/L Carbon Dioxide 24 (21-32) mmol/L Anion Gap 8.0 (3-11) BUN 12 (7-18) mg/dl Creatinine 1.15 (0.6-1.2) mg/dl Est Cr Clr Drug Dosing 85.2 ml/min Est GFR ( Amer) 68.4 Est GFR (Non-Af Amer) 59.1 BUN/Creatinine Ratio 10.1 (10-20) Glucose 139 H (70-99) mg/dl Calcium 9.2 (8.5-10.1) mg/dl Magnesium 2.4 (1.8-2.4) mg/dl Troponin I < 0.015 (0-0.045) ng/ml Imaging Data My Impression: I reviewed the DVT study which showed acute DVTs in the right lower extremity. Radiologist's Impression: Radiology results as stated below per my review and the radiologist's interpretation: CT ANGIOGRAPHY OF THE CHEST, PULMONARY EMBOLUS PROTOCOL CLINICAL HISTORY: Shortness of breath. DVT. COMPARISON STUDY: Chest CT March 01, 2013. Chest radiograph November 02, 2017. TECHNIQUE: Following IV administration of 119 mL of Optiray-320, helical axial images of the chest were obtained utilizing the pulmonary embolus protocol. Maximal intensity projections and sagittal and coronal reformats were viewed on an independent 3D workstation. IV contrast was administered without complication. Automated exposure control was utilized for the study. A dose lowering technique was utilized adhering to the principles of ALARA. CT DOSE: 793.06 mGy.cm FINDINGS: Multiple acute appearing bilateral pleural emboli are noted, including emboli within the distal left pulmonary artery which extend into the segmental branch of the apicoposterior segment of the left upper lobe and lingula. In addition, there is moderate thrombus within the left lower lobe pulmonary artery extending into several segmental branches within the left lower lobe. Segmental emboli within the right lower lobe are noted. There is no CT evidence for right heart strain. No pulmonary infarct is noted. A 9 mm cystic lesion within the left upper lobe on image 227 of [address] of March 01, 2013. This is benign. There are trace bilateral pleural effusions. There is no pneumothorax. Bony thorax and upper abdomen are unremarkable. IMPRESSION: 1. Numerous acute appearing bilateral pulmonary emboli, including emboli within the distal left pulmonary artery. No saddle embolus. No CT evidence for right heart strain. No pulmonary infarct. 2. Trace bilateral pleural effusions. Electronically signed by: Kike Agudelo M.D. 09/01/2018 4:27 PM (Prior study obtained as an outpatient reviewed below) US venous doppler LE RT CLINICAL HISTORY: PAIN AND SWELLING RLE PAIN. EDEMA. COMPARISON STUDY: 05/28/2006 FINDINGS: Findings consistent with acute deep venous thrombosis within the right popliteal vein as well as the posterior tibial veins. All remaining components of the study are unremarkable. Compressibility is inc omplete. IMPRESSION: Acute deep venous thrombosis right leg involving the right popliteal and posterior tibial veins. The above report was generated using voice recognition software. It may contain grammatical, syntax or spelling errors. Electronically signed by: Damien Back M.D. 09/01/2018 1:12 PM ECG Data Attestation: I personally reviewed and interpreted this ECG as follows: Indication: SOB/dyspnea Rate (beats per minute): 82 Rhythm: normal sinus Findings: + other (normal intervals; normal axis) and + T-wave inversion (lead III and aVF) Comparison ECG Date: from (07/08/17) Change: no significant change (TWI in lead III old; TWI in aVF may be new) Blood Pressure Blood Pressure Findings: Normal blood pressure MDM Narrative The patient is a 42 year old white female w/ PMHx of arthritis who presents to the ED w/ CC of an episode of abnormal ultrasound beginning just prior to arrival. Differential diagnosis: Etiologies such as cardiac ischemia, aortic dissection, DVT, pulmonary embolism, pneumonia, pneumothorax, musculoskeletal, infections, pericarditis, myocarditis, esophageal rupture, gastrointestinal, as well as others were entertained. Patient was seen and evaluated the bedside. The patient did present with concern for acute DVT and associated chest pain shortness of breath. The patient is on control did have a recent arthroscopic procedure for a torn meniscus. The patient has no prior history. The patient denies any recent car plane travel. Patient did have blood work completed along with EKG troponin CT of the chest. Patient does have a mild white count of 14 but a normal H&H. The patient does not have a detectable troponin. EKG shows potentially 1 new T wave inversion in aVF but the one in lead III was old. No STS changes. The patient does have bilateral PEs without evidence of right heart strain. No pulmonary infarct. I did discuss the case with the hospitalist who agreed that the patient would benefit from admission given the patient has been symptomatic with bilateral extensive PEs. The patient had been given a dose of Lovenox upon presentation. Patient was admitted to the medicine service. Impression & Plan Bilateral pulmonary embolism, Chest pain, DVT (deep venous thrombosis), Acute deep vein thrombosis (DVT) of femoral vein Critical Care Time Critical Care Time: Yes Total Critical Care Time: 42 I have personally spent 42 minutes of critical care time in the direct management of this patient. This includes bedside care, interpretation of diagnostic studies, and testing, discussion with consultants, patient, and [facility] ly members, and other required patient management activities. This 42 minutes is in excess of all separately billable procedures. Discharge Plan Visit Data *Final* Discharge Date/Time: 09/01/18 20:04 Chief Complaint: Abnormal Labs/Diagnostic Testing Stated Complaint: BLOOD CLOTS IN RT LEG, JUST HAS ULTR ED Provider: Thom Hong Discharge Problem: Bilateral pulmonary embolism, Chest pain, DVT (deep venous thrombosis), Acute deep vein thrombosis (DVT) of femoral vein Patient Disposition: Admitted As Inpatient Discharge Instructions Interventions: ED Discharge Assessment Last Done: 09/01/18 20:04 Discharge Problem: Chest pain Qualifiers: Chest pain type: unspecified Qualified Code(s): R07.9 - Chest pain, unspecified DVT (deep venous thrombosis) Qualifiers: DVT location: lower extremity Affected thrombotic vein of extremity: popliteal Chronicity: acute Laterality: right Qualified Code(s): I82.431 - Acute embolism and thrombosis of right popliteal vein Acute deep vein thrombosis (DVT) of femoral vein Qualifiers: Laterality: right Qualified Code(s): I82.411 - Acute embolism and thrombosis of right femoral vein The scribe's documentation has been prepared under my direction and personally reviewed by me in its entirety. I confirm that the note above accurately reflects all work, treatment, procedures, and medical decision making performed by me.
--- NOTE | 2018-09-02 07:20 | Family Medicine Progress Note ---
Date of Service September 02, 2018 Assessment & Plan (1) Bilateral pulmonary embolism: Wilma is a 42-year-old female with a past medical history of psoriatic arthritis and recent arthroscopic meniscus repair of her right knee who presents with approximately 1 week of worsening pain in her right leg and 1 day of increased shortness of breath, pain with inspiration, and sharp pain in her mid chest. She has confirmed R DVT and bilateral PE. Bilateral non-saddle PE 2/2 provoked right DVT Provoked in the setting of right knee surgery 1 week ago, Right popliteal/tibial DVT confirmed on Doppler, Bilateral PE with left PA emboli, no saddle embolus, no areas of infarct, no evidence of right heart strain on CTA. Received 1.5 mpk enoxaparin in ED. begin Xarelto this evening We will required 50 mg twice daily with food for 21 days followed by 20 mg daily with food will defer to outpatient PCP to determine whether this is a provoked or unprovoked DVT -Patient has a family history of DVTs, and numerous male and female relatives, patient also has a daughter will initiate hypercoagulable work-up. PESI class I, very low risk for 30-day mortality Discontinued Sprintec, my attending had a discussion with the patient regarding control options moving forward, patient stated she would consider this. 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 Rebolledo. Agree with history, exam findings, assessment and plan of care. Patient having significant leg pain with walking and ankle movement. Does not feel that lower leg is more swollen than before, but does feel very tight. Also notes some pleuritic chest pain as well, but limited dyspnea. She reports + family hx of VTEboth brother and sister have hx of VTE. One apparently unprovoked and another that was preceded by surgery. She was on Sprintec prior to admission. She was using this for contraceptive purposes. Lungs are clear, breathing comfortably on room air. Right calf is tight and tender to the touch. Painful with passive ankle dorsiflexion and plantarflexion. +2 posterior tib and dorsalis pedis pulses. Wilma is a 42-year-old female with a past medical history of psoriatic arthritis and recent arthroscopic meniscus repair of her right knee admitted with R DVT and bilateral, non-saddle PE. 1. Bilateral non-saddle PE 2/2 provoked right DVT Provoked in the setting of right knee surgery 1 week ago but also has other risk factors for unprovoked VTE including COCPs and family hx. Right popliteal/tibial DVT, numerous acute bilateral PE, including emboli within distal left pulmonary artery. No infarct. No evidence of right heart strain on CTA. Received 1.5 mg/kg enoxaparin in ED, continue lovenox and transition to xarelto tomorrow AM Discontinue Sprintec OCP, discussed options for contraception. During the acute phase, all of the progestin options and the copper IUD are Risk level 2 (advantages generally outweigh risks). Copper IUD is the only Risk level 1 following the acute phase. 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 -Warm compress, gentle ankle range of motion 2. Chest pain Troponin x3 flat Suspect 2/2 PE as above, tramadol 50 mg for pain but with troponins as above for cardiac rule out 3. Psoriatic arthritis Well-controlled with methotrexate weekly (7.5 mg on Fridays) and hy droxychloroquine 200 mg twice daily Dispo: pending improvement in leg pain and ambulation. Subjective Patient sitting upright in bed endorsing pain in her right calf. Patient does not have a significant interval history overnight, has made some improvement however states she is not as well as she thought she would be at this time. Patient still endorsing chest pain especially with deep inspiration. Patient also endorsing pain in her right calf, ultrasound showed DVT and popliteal and tibial veins which would cause some significant pain. Patient is using tramadol for pain control and has morphine 1 mg every 4 hours as needed. Patient is tolerating her diet, voiding, stooling, sleeping. No acute concerns at present, all questions answered Physical Exam Physical Exam: General: Middle-aged female experiencing pain in her right calf, taking short shallow breaths secondary to pain HEENT: No acute concerns normocephalic atraumatic Neck: Negative JVD, normal visual inspection Cardiac: Regular rate and rhythm, normal S1, normal S2, did not appreciate any murmurs rubs or gallops Respiratory: Clear to auscultation bilaterally GI: Soft, nontender, nondistended MSK: Moves all extremities Skin: No new rashes Neuro: Alert and oriented Psych: Cooperative Results & Data Vital Signs (Past 12 Hours) Vital Signs Temp Pulse Resp BP Pulse Ox 09/02/18 07:05 36.8 C 73 18 114/72 95 09/01/18 23:33 36.7 C 70 19 117/78 96 09/01/18 20:24 36.8 C 73 20 126/78 95 09/01/18 20:02 85 18 120/70 98 Laboratory Results 09/02/18 09/01/18 09/01/18 Range/Units 03:06 20:37 20:37 WBC (4.8-10.8) K/uL RBC (4.2-5.4) M/uL Hgb (12.0-16.0) g/dL Hct (37-47) % MCV (80-100) fL MCH (25-34) pg MCHC (32-36) g/dL RDW Std Deviation (36.4-46.3) fL RDW Coeff of Mary (11.5-14.5) % Plt Count (130-400) K/uL MPV (7.4-10.4) fL Immature Gran % (Auto) % Neut % (Auto) % Lymph % (Auto) % [place] % (Auto) % Eos % (Auto) % Baso % (Auto) % Immature Gran # (Auto) (0.00-0.02) K/uL Neut # (Auto) (1.4-6.5) K/uL Lymph # (Auto) (1.2-3.4) K/uL [place] # (Auto) (0.11-0.59) K/uL Eos # (Auto) (0-0.5) K/uL Baso # (Auto) (0-0.2) K/uL PT 9.7 (9.0-12.0) Seconds INR 0.9 (0.9-1.1) APTT 30.2 (21.0-31.0) Seconds PTT Ratio 1.1 Sodium (136-145) mmol/L Potassium (3.5-5.1) mmol/L Chloride (98-107) mmol/L Carbon Dioxide (21-32) mmol/L Anion Gap (3-11) BUN (7-18) mg/dl Creatinine (0.6-1.2) mg/dl Est Cr Clr Drug Dosing ml/min Est GFR ( Amer) Est GFR (Non-Af Amer) BUN/Creatinine Ratio (10-20) Glucose (70-99) mg/dl Calcium (8.5-10.1) mg/dl Magnesium (1.8-2.4) mg/dl Troponin I < 0.015 < 0.015 (0-0.045) ng/ml 09/01/18 09/01/18 Range/Units 15:07 15:07 WBC 14.75 H (4.8-10.8) K/uL RBC 4.83 (4.2-5.4) M/uL Hgb 14.7 (12.0-16.0) g/dL Hct 42.4 (37-47) % MCV 87.8 (80-100) fL MCH 30.4 (25-34) pg MCHC 34.7 (32-36) g/dL RDW Std Deviation 41.2 (36.4-46.3) fL RDW Coeff of Mary 12.8 (11.5-14.5) % Plt Count 350 (130-400) K/uL MPV 9.3 (7.4-10.4) fL Immature Gran % (Auto) 0.9 % Neut % (Auto) 67.0 % Lymph % (Auto) 23.3 % [place] % (Auto) 7.5 % Eos % (Auto) 1.0 % Baso % (Auto) 0.3 % Immature Gran # (Auto) 0.14 H (0.00-0.02) K/uL Neut # (Auto) 9.86 H (1.4-6.5) K/uL Lymph # (Auto) 3.44 H (1.2-3.4) K/uL [place] # (Auto) 1.11 H (0.11-0.59) K/uL Eos # (Auto) 0.15 (0-0.5) K/uL Baso # (Auto) 0.05 (0-0.2) K/uL PT (9.0-12.0) Seconds INR (0.9-1.1) APTT (21.0-31.0) Seconds PTT Ratio Sodium 138 (136-145) mmol/L Potassium 3.6 (3.5-5.1) mmol/L Chloride 106 (98-107) mmol/L Carbon Dioxide 24 (21-32) mmol/L Anion Gap 8.0 (3-11) BUN 12 (7-18) mg/dl Creatinine 1.15 (0.6-1.2) mg/dl Est Cr Clr Drug Dosing 85.2 ml/min Est GFR ( Amer) 68.4 Est GFR (Non-Af Amer) 59.1 BUN/Creatinine Ratio 10.1 (10-20) Glucose 139 H (70-99) mg/dl Calcium 9.2 (8.5-10.1) mg/dl Magnesium 2.4 (1.8-2.4) mg/dl Troponin I < 0.015 (0-0.045) ng/ml Medications Administered Current Inpatient Medications Enoxaparin Sodium (Lovenox) 150 mg SQ Q24H GRACIE Stop: 10/02/18 15:59 Hydroxyzine HCl (Vistaril) 25 mg PO HS PRN PRN Reason: Anxiety Stop: 10/01/18 20:15 Last Admin: 09/02/18 00:06 Dose: 25 mg Documented by: Morphine Sulfate (Morphine Sulfate) 1 mg IV Q4H PRN PRN Reason: Pain Stop: 09/15/18 20:29 Last Admin: 09/01/18 20:48 Dose: 1 mg Documented by: Pantoprazole Sodium (Protonix) 40 mg PO QAM GRACIE Stop: 10/02/18 08:59 Tramadol HCl (Ultram) 50 mg PO Q6H PRN PRN Reason: Pain Stop: 10/01/18 18:57 Last Admin: 09/01/18 19:30 Dose: 50 mg Documented by: PG Care Time/CCT Total # of Minutes Spent Total Time Spent with Patient: Total time spent is greater than 50% in coordination of care (as documented) at patient's floor/unit and/or counseling p atient: Resident Activity Tracking Resident Involvement: Resident Care Provided Care Provided: Adult Hospital Medicine
[2018-09-02] MEDS: TRAMADOL HCL 50 MG TABLET PO PRN ×2 (07:48→15:49)
[2018-09-02] MEDS: PANTOprazole 40 MG TAB PO SCH (07:49)
[2018-09-02] MEDS: MoRPHine SULFATE 2 MG/ML CARP IV PRN ×2 (11:32→20:28)
[2018-09-02] MEDS ORDERED: ENOXAPARIN 150 MG/ML SYR SQ SCH (16:00)
[2018-09-03] MEDS ORDERED: MoRPHine SULFATE 2 MG/ML CARP IV STA (02:46)
[2018-09-03 07:24] LABS: Basophils # (auto) 0.05 K/uL (0-0.2); Basophils % (auto) 0.4 %; Eosinophils # (auto) 0.15 K/uL (0-0.5); Eosinophils % (auto) 1.3 %; Hematocrit (blood only) 36.2 % (37-47); Hemoglobin 12.3 g/dL (12.0-16.0); Immature Granulocytes # (auto) 0.11 K/uL (0.00-0.02); Lymphocytes # (auto) 3.41 K/uL (1.2-3.4); Lymphocytes % (auto) 30.6 %; Mean Corpuscular Volume 87.9 fL (80-100); Mean Platelet Volume 8.8 fL (7.4-10.4); Monocytes # (auto) 1.18 K/uL (0.11-0.59); Monocytes % (auto) 10.6 %; Neutrophils # (auto) 6.25 K/uL (1.4-6.5); Neutrophils % (auto) 56.1 %; Platelet Count 260 K/uL (130-400); RDW Coefficient of Variation 12.9 % (11.5-14.5); RDW Standard Deviation 41.7 fL (36.4-46.3); Red Blood Count 4.12 M/uL (4.2-5.4); White Blood Count 11.15 K/uL (4.8-10.8)
[2018-09-03] MEDS: PANTOprazole 40 MG TAB PO SCH (07:33)
--- NOTE | 2018-09-03 07:48 | Family Medicine Progress Note ---
Date of Service September 03, 2018 Assessment & Plan (1) Bilateral pulmonary embolism: Wilma is a 42-year-old female with a past medical history of psoriatic arthritis and recent arthroscopic meniscus repair of her right knee who presents with approximately 1 week of worsening pain in her right leg and 1 day of increased shortness of breath, pain with inspiration, and sharp pain in her mid chest. She has confirmed R DVT and bilateral PE. Bilateral non-saddle PE 2/2 provoked right DVT Provoked in the setting of right knee surgery 1 week ago, Right popliteal/tibial DVT confirmed on Doppler, Bilateral PE with left PA emboli, no saddle embolus, no areas of infarct, no evidence of right heart strain on CTA. Received 1.5 mpk enoxaparin in ED. begin Xarelto today We will required 15 mg twice daily with food for 21 days followed by 20 mg daily with food will defer to outpatient PCP to determine whether this is a provoked or unprovoked DVT -Patient has a family history of DVTs, and numerous male and female relatives, patient also has a daughter will initiate hypercoagulable work-up. -Results pending PESI class I, very low risk for 30-day mortality Discontinued Sprintec, advised patient of risks associated with OCPs and DVT. She will discuss with her woman's care provider as to what form of control she wishes to pursue Chest pain Chest pain likely secondary to pulmonary embolus, continue tramadol 50 mg as needed for pain with morphine 1 mg as needed. On admission troponin x3 negative. Patient previously endorsing 79/10 intermittent chest pain with shortness of breath. EKG: Normal sinus rhythm, no ST deviation. Chest pain is largely resolved as of 09/03 Right lower extremity pain Patient is endorsing significant right-sided lower extremity pain worse with standing. I believe his pain is likely secondary to increased pressure from gravity induced fluid shifts causing significant edema of the right lower extremity. Patient provided 2 mg of IV morphine overnight did not really help with the pain. Patient is concerned there may be something else going on. She is requesting a consult from vascular surgery and repeat imaging. 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 Rebolledo. Agree with history, exam findings, assessment and plan of care. Wilma is a 42-year-old female with a past medical history of psoriatic arthritis and recent arthroscopic meniscus repair of her right knee admitted with R DVT and bilateral, non-saddle PE. Patient having significant leg pain with walking and ankle movement. Reports significant pain in the calf and lower leg with weightbearing. Does not feel that lower leg is more swollen than before, but does feel very tight. Chest pain is improved. She reports + family hx of VTEboth brother and sister have hx of VTE. One apparently unprovoked and another that was preceded by surgery. She was on Sprintec prior to admission. She was using this for contraceptive purposes. Lungs are clear, breathing comfortably on room air. Right calf is tight and tender to the touch, although less tense compared to yesterday. Painful with passive ankle dorsiflexion and plantarflexion. +2 posterior tib and dorsalis pedis pulses. 1. Bilateral non-saddle PE 2/2 provoked right DVT Provoked in the setting of right knee surgery 1 week ago but also has other risk factors for unprovoked VTE including COCPs and family hx. Right popliteal/tibial DVT, numerous acute bilateral PE, including emboli within distal left pulmonary artery. No infarct. No evidence of right heart strain on CTA. s/p lovenox, now on xarelto Discontinue Sprintec OCP, discussed options for contraception. -Warm compress, gentle ankle range of motion - consult vascular for opinion regarding intervention for her DVT, in particular the posterior tibial clot given that is occlusive and she has significant symptoms from this. 2. Chest pain Troponin x3 flat Suspect 2/2 PE as above, tramadol 50 mg for pain but with troponins as above for cardiac rule out 3. Psoriatic arthritis Well-controlled with methotrexate weekly (7.5 mg on Fridays) and hydroxychloroquine 200 mg twice daily Dispo: pending improvement in leg pain and ability to ambulate. Subjective Patient sitting up in bed this morning reporting significant right-sided lower extremity pain. Patient states she had the pain throughout the night, and asked the nurse to contact nighttime resident. Sheprovided 2 mg of IV morphine. Nighttime resident also assessed the patient patient had good bilateral pulses no lower extremity, extremity was warm and well-perfused, did not appreciate significant edema. I saw the patient couple of hours later, attempted a trial of Skelaxin to help her with pain. To no avail. Patient page me again around noontime complaining of headache and increased right-sided lower extremity pain, provided patient with dose of Fioricet with some improvement in her pain. Other than that patient is tolerating her diet, voiding, stooling, sleeping. She is concerned that the pain will not go away in her leg, with a lengthy discussion about DVTs and the pathophysiology why it may take a while for her pain to go away. Patient is requesting a consult with vascular surgery. All questions answered, no acute concerns. Physical Exam Physical Exam: General: Middle-aged female experiencing pain in her right calf, taking short shallow breaths secondary to pain HEENT: No acute concerns normocephalic atraumatic, balding Neck: Negative JVD, normal visual inspection Cardiac: Regular rate and rhythm, normal S1, normal S2, did not appreciate any murmurs rubs or gallops Respiratory: Clear to auscultation bilaterally GI: Soft, nontender, nondistended MSK: Moves all extremities Right lower extremity is exquisitely tender, worse with standing, excellent pulses, warm and well-perfused, no signs or symptoms of compartment syndrome Skin: No new rashes Neuro: Alert and oriented Psych: Cooperative Results & Data Vital Signs (Past 12 Hours) Vital Signs Temp Pulse Resp BP BP Pulse Ox 09/03/18 07:04 36.8 C 72 18 99/64 L 96 09/02/18 22:55 37.1 C 82 18 106/68 95 PG Care Time/CCT Total # of Minutes Spent Total Time Spent with Patient: Total time spent is greater than 50% in coordination of care (as documented) at patient's floor/unit and/or counseling patient: Resident Activity Tracking Resident Involvement: Resident Care Provided Care Provided: Adult [facility] Medicine
[2018-09-03 07:55] LABS: BUN Creatinine Ratio 14.6 (10-20); Calcium 8.3 mg/dl (8.5-10.1); Creatinine Clr Calc Pharmacy 89.6 ml/min
[2018-09-03] MEDS ORDERED: METAXALONE 800 MG TABLET PO ONE (08:48)
[2018-09-03] MEDS: MoRPHine SULFATE 2 MG/ML CARP IV PRN ×2 (09:03→22:34)
[2018-09-03] MEDS ORDERED: BUTALBITAL/ACETAMIN/CAFFEINE TAB PO STA (12:35)
[2018-09-03] MEDS ORDERED: BUTALBITAL/ACETAMIN/CAFFEINE TAB PO PRN (13:34)
--- NOTE | 2018-09-03 14:41 | Ultrasound Report ---
US venous doppler LE RT CLINICAL HISTORY: 42 years-old Female presenting with please state size of clot. TECHNIQUE: Real-time grayscale and color and spectral Doppler ultrasound imaging of the veins of the right lower extremity was performed. Compression and augmentation were also utilized. COMPARISON: 09/01/2018. FINDINGS: RIGHT: Common femoral vein: Patent. Greater saphenous vein (superficial): Patent. Deep femoral vein: Patent. Femoral vein: Patent. Popliteal vein: Persistent thrombus in the distal popliteal vein. Thrombus is largely nonocclusive. Calf veins: Persistent thrombus in the duplicated posterior tibial veins. Thrombus appears occlusive. Remainder of calf veins patent. Other: None. IMPRESSION: Findings remain unchanged with evidence of deep venous thrombosis in the distal right popliteal vein and duplicated right posterior tibial veins. Electronically signed by: Dav Chowdhury M.D. 09/03/2018 2:40 PM
[2018-09-03] MEDS: RIVAROXABAN 15 MG TAB PO SCH (16:30)
[2018-09-03] MEDS: LORazepam 0.5 MG TAB PO PRN (19:25)
[2018-09-04] MEDS: TRAMADOL HCL 50 MG TABLET PO PRN (01:46)
[2018-09-04 06:33] LABS: Basophils # (auto) 0.04 K/uL (0-0.2); Basophils % (auto) 0.4 %; Eosinophils # (auto) 0.18 K/uL (0-0.5); Eosinophils % (auto) 1.6 %; Hematocrit (blood only) 37.6 % (37-47); Hemoglobin 12.9 g/dL (12.0-16.0); Immature Granulocytes # (auto) 0.08 K/uL (0.00-0.02); Immature Granulocytes % (auto) 0.7 %; Lymphocytes # (auto) 3.77 K/uL (1.2-3.4); Lymphocytes % (auto) 33.1 %; Mean Corpuscular Hgb Conc 34.3 g/dL (32-36); Mean Corpuscular Volume 86.4 fL (80-100); Mean Platelet Volume 9.1 fL (7.4-10.4); Monocytes # (auto) 1.22 K/uL (0.11-0.59); Monocytes % (auto) 10.7 %; Neutrophils # (auto) 6.11 K/uL (1.4-6.5); Neutrophils % (auto) 53.5 %; Platelet Count 278 K/uL (130-400); RDW Coefficient of Variation 12.8 % (11.5-14.5); RDW Standard Deviation 40.6 fL (36.4-46.3); Red Blood Count 4.35 M/uL (4.2-5.4)
[2018-09-04 07:05] LABS: BUN Creatinine Ratio 14.2 (10-20); Calcium 8.8 mg/dl (8.5-10.1); Est GFR (African American) 76.7; Est GFR (Non-African American) 66.2; Potassium 3.9 mmol/L (3.5-5.1)
[2018-09-04] MEDS: RIVAROXABAN 15 MG TAB PO SCH ×2 (08:19→18:27)
[2018-09-04] MEDS: PANTOprazole 40 MG TAB PO SCH (08:19)
[2018-09-04] MEDS: SUMAtriptan succinate 50 MG TAB PO PRN ×2 (09:47→13:12)
--- NOTE | 2018-09-04 09:57 | Consultation ---
Date of Consultation September 04, 2018 Assessment & Plan (1) DVT (deep venous thrombosis): No intervention indicated at this time. Would treat with elevation, anticoagulation, and pain control. Would start ambulation with physical therapy. Agree with a hypercoaguable workup due to family hx of clotting. Would place her in 20-30mm Hg below the knee compression stockings once pain subsides. Thank you very much for letting us participate in the care of this patient. Affected thrombotic vein of extremity: popliteal Chronicity: acute DVT location: lower extremity Laterality: right Qualified Code(s): I82.431 - Acute embolism and thrombosis of right popliteal vein History of Present Illness Reason for Consultation: DVT right leg and PE Attending Physician: Benito Cho MD History of Present Illness This is a 42-year-old white female who had arthroscopic repair of a meniscus of her right knee. Since then she is developed proxy 1 week history of worsening pain in her right leg and a 1 day history of shortness of breath prior to her admission to the hospital. The time of admission she was found to have an acute deep venous thrombosis of right popliteal and posterior tibial veins. She was also found to have a pulmonary embolism. She does not have a history of DVT in the past. There is a family history of DVT. Her brother had supposed a blood clot in his neck. Her sister did have a pulmonary embolism. Allergies Allergy/AdvReac Type Severity Reaction Status Date / Time No Known Allergies Allergy Verified 09/01/18 16:05 Home Medications Home Medications Medication Instructions Recorded Confirmed Type eletriptan 40 mg PO DIRECTED PRN 11/02/17 09/01/18 History hydroxychloroquine 200 mg PO AMPM 11/02/17 09/01/18 History methotrexate sodium 7.5 mg PO WK 11/02/17 09/01/18 History norgestimate-ethinyl estradiol 1 tab PO DAILY 11/02/17 09/01/18 History [Sprintec (28)] omeprazole 10 mg PO QAM 11/02/17 09/01/18 History folic acid 1 mg PO DAILY 09/01/18 09/01/18 History hydrocodone-acetaminophen 1 tab PO Q6H PRN 09/01/18 09/01/18 History Patient History Medical History Helicobacter pylori (H. 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 Beliefs That Will Affect Care: None Current Living Situation: Spouse, Parent and Family Other Information That Helps Us Care for You: No Feels Safe at Home: Yes Safety Concerns: Feels Safe At This Time Smoking Status: Never smoker Do You Dip or Chew Tobacco: No Second Hand Exposure: No Hx Alcohol Use: Yes Hx Substance Use: No Review of Systems Review of Systems: All systems reviewed & are unremarkable except as noted in HPI & below Physical Exam Constitutional: WD/WN, vitals as above Respiratory: normal respiratory effort; no respiratory distress Cardiovascular: Rate/Rhythm: regular rate Extremities: + edema (right leg) Musculoskeletal: pain in right calf on palpation Skin: no rashes, warm and dry Psychiatric: Orientation: alert and oriented x 3 Results & Data Vital Signs (Past 12 Hours) Vital Signs Temp Pulse Resp BP Pulse Ox 09/04/18 07:21 36.7 C 68 18 117/74 97 09/03/18 23:19 37.3 C 78 18 107/69 96
[2018-09-04] MEDS: MoRPHine SULFATE 2 MG/ML CARP IV PRN (13:49)
[2018-09-04] MEDS ORDERED: IBUPROFEN 800 MG TAB PO STA (14:19)
[2018-09-04] MEDS ORDERED: OXYCODONE HCL IR 5 MG TAB (IMMEDIATE RELEASE) PO STA (14:20)
[2018-09-04] MEDS: OXYCODONE HCL IR 5 MG TAB (IMMEDIATE RELEASE) PO PRN (18:31)
--- NOTE | 2018-09-04 19:08 | History & Physical Bridge Note ---
Date of Service September 04, 2018 Supervising Physician Co-Signing Physician Notes Attending attestation Pt seen and examined in concert with Dr. Rebolledo. In agreement with the documented findings as noted in the resident documentation with any exceptions or additions as noted here. Persistent right lower extremity pain which worsens with WB and improves with rest, overall improved from yesterday but still 7/10, tearful with standing and palpation. CTAB. Bilateral PE and provoked DVT, right w/ pain - ibuprofen and oxycodone with goal of pain tolerance for ambulation, goal of dispo tomorrow. Continue Xarelto Outpatient contraception with paragard to be discussed at discharge along with f/u hypercoag workup. Else see resident documentation as noted.
--- NOTE | 2018-09-04 19:46 | Family Medicine Progress Note ---
Date of Service September 04, 2018 Assessment & Plan (1) Bilateral pulmonary embolism: Wilma is a 42-year-old female with a past medical history of psoriatic arthritis and recent arthroscopic meniscus repair of her right knee who presents with approximately 1 week of worsening pain in her right leg and 1 day of increased shortness of breath, pain with inspiration, and sharp pain in her mid chest. She has confirmed R DVT and bilateral PE. Bilateral non-saddle PE 2/2 provoked right DVT Provoked in the setting of right knee surgery 1 week ago, Right popliteal/tibial DVT confirmed on Doppler, Bilateral PE with left PA emboli, no saddle embolus, no areas of infarct, no evidence of right heart strain on CTA. Received 1.5 mpk enoxaparin in ED. begin Xarelto today We will required 15 mg twice daily with food for 21 days followed by 20 mg daily with food will defer to outpatient PCP to determine whether this is a provoked or unprovoked DVT -Patient started Xarelto on 09/03/2018 she has been tolerating well -Patient has a family history of DVTs, and numerous male and female relatives, patient also has a daughter will initiate hypercoagulable work-up. -Results pending PESI class I, very low risk for 30-day mortality Discontinued Sprintec, advised patient of risks associated with OCPs and DVT. She will discuss with her woman's care provider as to what form of control she wishes to pursue Chest pain Chest pain likely secondary to pulmonary embolus, continue tramadol 50 mg as needed for pain with morphine 1 mg as needed. On admission troponin x3 negative. Patient previously endorsing 79/10 intermittent chest pain with shortness of breath. EKG: Normal sinus rhythm, no ST deviation. Chest pain is largely resolved as of 09/03 Right lower extremity pain Patient is endorsing significant right-sided lower extremity pain worse with standing. I believe his pain is likely secondary to increased pressure from gravity induced fluid shifts causing significant edema of the right lower extremity. Patient provided 2 mg of IV morphine overnight did not really help with the pain. Patient is concerned there may be something else going on. She is requesting a consult from vascular surgery and repeat imaging. -Consulted vascular surgery appreciate Recs -No intervention indicated at this time -TX with elevation, anticoagulation, and pain. Begin ambulation -When pain subsides consider 20 through 30 mmHg knee compression stockings -Patient has PRN Ativan 0.5 mg, as needed Fioricet, PRN oxycodone 5 mg every 6 hours -Would discharge the patient with 5 days of 5 mg oxycodone every 6 hours Psoriatic arthritis Well-controlled with methotrexate weekly (7.5 mg on Fridays) and hydroxychloroquine 200 mg twice daily Continue hydroxychloroquine GERD - [employer] omeprazole converted to Protonix Anxiety Hydroxyzine x1, nightly as needed for anxiety -Patient may benefit from SSRI will defer to outpatient physician DVT prophylaxis: Xarelto Diet: Regular CODE STATUS: Full code Disposition: Discharge tomorrow Supervising Physician Co-Signing Physician Notes Attending attestation Pt seen and examined in concert with Dr. Rebolledo. In agreement with the documented findings as noted in the resident documentation with any exceptions or additions as noted here. Persistent RLE pain rated 7/10 with weight bearing without pain control medications. Breathing is nearly baseline. On examination, S1/S2 nl RRR no MCG. CTAB. Bilateral PE and provoked DVT, right w/ pain - start ibuprofen and oxycodone for short course for pain control. Continue Xarelto loading. Else see resident documentation as noted. Subjective Patient sitting in bed this morning complaining of a headache. Patient reports that headache started yesterday evening, normally when she gets these headaches she takes Relpax at home. These headaches tend to be associated with estrogen withdrawal during her absence week on her OCPs. Patient requested to take Relpax yesterday, night resident improved, for some reason pharmacy gave tons and tons of pushback. Patient was not given any medication. This morning when I evaluated the medication her symptoms were consistent with a migraine. I provided her with sumatriptan with subsequent improvement in her headache pain. Throughout the day patient continued to endorse 8 of 10 leg pain secondary to DVT. However her mobility has increased significantly, she is now able to walk to the bathroom unassisted however still reporting significant pain upon return to the bed. The patient remains hospitalized for optimization of pain management. Hopefully for discharge tomorrow. Patient is tolerating her diet, voiding, stooling, and sleeping. No acute concerns, all questions answered. I am optimistic this patient will achieve adequate analgesia on her new pain med regimen Physical Exam Physical Exam: General: Middle-aged female experiencing pain in her right calf, HEENT: No acute concerns normocephalic atraumatic, balding Neck: Negative JVD, normal visual inspection Cardiac: Regular rate and rhythm, normal S1, normal S2, did not appreciate any murmurs rubs or gallops Respiratory: Clear to auscultation bilaterally GI: Soft, nontender, nondistended MSK: Moves all extremities Right lower extremity is exquisitely tender, worse with standing, excellent pulses, warm and well-perfused, no signs or symptoms of compartment syndrome, pain and mobility are improving albeit slowly Skin: No new rashes Neuro: Alert and oriented Psych: Cooperative Results & Data Vital Signs (Past 12 Hours) Vital Signs Temp Pulse Resp BP Pulse Ox 09/04/18 15:23 36.8 C 86 18 119/81 97 Laboratory Results 09/04/18 09/04/18 09/03/18 Range/Units 06:02 06:02 07:02 WBC 11.40 H (4.8-10.8) K/uL RBC 4.35 (4.2-5.4) M/uL Hgb 12.9 (12.0-16.0) g/dL Hct 37.6 (37-47) % MCV 86.4 (80-100) fL MCH 29.7 (25-34) pg MCHC 34.3 (32-36) g/dL RDW Std Deviation 40.6 (36.4-46.3) fL RDW Coeff of Mary 12.8 (11.5-14.5) % Plt Count 278 (130-400) K/uL MPV 9.1 (7.4-10.4) fL Immature Gran % (Auto) 0.7 % Neut % (Auto) 53.5 % Lymph % (Auto) 33.1 % [place] % (Auto) 10.7 % Eos % (Auto) 1.6 % Baso % (Auto) 0.4 % Immature Gran # (Auto) 0.08 H (0.00-0.02) K/uL Neut # (Auto) 6.11 (1.4-6.5) K/uL Lymph # (Auto) 3.77 H (1.2-3.4) K/uL [place] # (Auto) 1.22 H (0.11-0.59) K/uL Eos # (Auto) 0.18 (0-0.5) K/uL Baso # (Auto) 0.04 (0-0.2) K/uL Sodium 137 (136-145) mmol/L Potassium 3.9 (3.5-5.1) mmol/L Chloride 106 (98-107) mmol/L Carbon Dioxide 25 (21-32) mmol/L Anion Gap 6.0 (3-11) BUN 15 (7-18) mg/dl Creatinine 1.04 (0.6-1.2) mg/dl Est Cr Clr Drug Dosing 93.0 ml/min Est GFR ( Amer) 76.7 Est GFR (Non-Af Amer) 66.2 BUN/Creatinine Ratio 14.2 (10-20) Glucose 91 (70-99) mg/dl Calcium 8.8 (8.5-10.1) mg/dl Homocysteine 8.0 (<10.4) UMOL/L Medications Administered Current Inpatient Medications Acetaminophen/Butalbital/Caffeine (Fioricet) 1 tab PO Q4H PRN PRN Reason: Headache Stop: 10/03/18 13:33 Last Admin: 09/03/18 17:58 Dose: 1 tab Documented by: Hydroxyzine HCl (Vistaril) 25 mg PO HS PRN PRN Reason: Anxiety Stop: 10/01/18 20:15 Last Admin: 09/03/18 00:57 Dose: 25 mg Documented by: Lorazepam (Ativan) 0.5 mg PO Q6H PRN PRN Reason: Anxiety Stop: 10/03/18 16:31 Last Admin: 09/03/18 19:25 Dose: 0.5 mg Documented by: Oxycodone HCl (Roxicodone Immediate Rel) 5 mg PO Q6H PRN PRN Reason: Pain Stop: 09/18/18 18:10 Last Admin: 09/04/18 18:31 Dose: 5 mg Documented by: Pantoprazole Sodium (Protonix) 40 mg PO QAM [facility] Stop: 10/02/18 08:59 Last Admin: 09/04/18 08:19 Dose: 40 mg Documented by: Rivaroxaban (Xarelto) 15 mg PO BIDM [facility] Stop: 10/03/18 16:59 Last Admin: 09/04/18 18:27 Dose: 15 mg Documented by: Sumatriptan Succinate (Imitrex) 50 mg PO Q2H PRN PRN Reason: Migraine Headache Stop: 10/04/18 08:52 Last Admin: 09/04/18 13:12 Dose: 50 mg Documented by: Tramadol HCl (Ultram) 50 mg PO Q6H PRN PRN Reason: Pain Stop: 10/01/18 18:57 Last Admin: 09/04/18 01:46 Dose: 50 mg Documented by: PG Care Time/CCT Total # of Minutes Spent Total Time Spent with Patient: Total time spent is greater than 50% in coordination of care (as documented) at patient's floor/unit and/or counseling patient: Resident Activity Tracking Resident Involvement: Resident Care Provided Care Provided: Adult Hospital Medicine
[2018-09-05] MEDS: OXYCODONE HCL IR 5 MG TAB (IMMEDIATE RELEASE) PO PRN ×3 (00:34→13:59)
[2018-09-05] MEDS: LORazepam 0.5 MG TAB PO PRN (00:35)
[2018-09-05] MEDS: SUMAtriptan succinate 50 MG TAB PO PRN (08:26)
[2018-09-05] MEDS: PANTOprazole 40 MG TAB PO SCH (08:27)
[2018-09-05] MEDS: RIVAROXABAN 15 MG TAB PO SCH (08:28)
--- NOTE | 2018-09-05 11:20 | Discharge Summary ---
Date of Service September 05, 2018 Admission HPI Per Admitting Provider Wilma is a 42-year-old female with a past medical history of psoriatic arthritis and recent arthroscopic meniscus repair of her right knee who presents with approximately 1 week of worsening pain in her right leg and 1 day of increased shortness of breath, pain with inspiration, and sharp pain in her mid chest. Reports she contacted her surgeon Dr. Young went to his office for a follow-up appointment this morning and was found to have a right DVT on Doppler. She was referred to the emergency department for further management, by the time she had arrived here she had developed shortness of breath and chest pain. She did not experience shortness of breath or chest pain prior to today. She rates her pain as 7/10 at rest which intermittently worsens to 9/10 several times an hour. The pain is sharp in quality and worsened by inspiration. She does not know any remitting factors. She also has tight achy pain in her right calf. Denies palpitations. Denies fever, chills. She had one episode of feeling sweaty and flushed while walking which has since resolved. She has no prior history of blood clots. Medical history: Psoriatic arthritis Surgical history: Bilateral shoulder repair, left foot surgery without hardware placement. Right meniscus repair as noted in HPI above. Family history: History of neck clot in her brother, and PE in her sister. No family history of bleeding disorders. Denies history of stroke. No history of coronary artery disease or early [place]. Medications: Folic acid, hydrocodoneAPAP, hydroxychloroquine, methotrexate, Sprintec, omeprazole Social history: Lives involvement with her , mother, and children. Alcohol use: Spare Tobacco: No current or former use. Recreational drugs: None. Admission Exam Per Admitting Provider Constitutional: Denies fever, malaise, weight change. Chills as noted in HPI Eyes: Denies double vision, vision change, eye pain ENT: Denies ear pain, sore throat, sinus pain Cardiovascular: Endorses chest pain as noted in HPI. Respiratory: Endorses dyspnea, pain on inspiration as noted in HPI. Denies sputum production. Gastrointestinal: Denies abdominal pain, nausea, vomiting, constipation, diarrhea Genitourinary: Denies pain with urination, urinary urgency, urinary frequency Musculoskeletal: Denies weakness. Endorses R leg pain and swelling. Integumentary:Denies rash, lesions, bruising Neurological: Denies headache, numbness, tingling, focal weakness Principal Diagnosis Bilateral Pulmonary Embolism RLE DVT Discharge Exam General: In NAD Neuro: A&O x 4 Pulm: CTAB equal breath sounds bilaterally CV: RRR, no m/r/g Abdomen:+BS, no TTP in all quadrants, non-distended LE: RLE trace edema and moderate calf TTP, R knee tender to palpation anteriorly - no notable erythema, arthroscopy sutures C/D/I Discharge Data Allergies Allergy/AdvReac Type Severity Reaction Status Date / Time No Known Allergies Allergy Verified 09/01/18 16:05 Consultations 09/01/18 16:45 ED Decision to Admit Stat 09/03/18 13:31 Consult Vascular Surgery Routine Ordered Studies 09/01/18 15:08 CT angio chest PE protocol Stat 09/03/18 13:31 US venous doppler LE RT Routine Hospital Course (1) Bilateral pulmonary embolism: Wilma is a 42-year-old female with a past medical history of psoriatic arthritis and recent arthroscopic meniscus repair of her right knee presentdc with approximately 1 week of worsening pain in her right leg and 1 day of increased shortness of breath, pain with inspiration, and sharp pain in her mid chest. She had confirmed R leg DVT and bilateral PE. Bilateral non-saddle PE 2/2 likely provoked right DVT Provoked in the setting of right knee surgery 1 week ago, Right popliteal/tibial DVT confirmed on Doppler, Bilateral PE with left PA emboli, no saddle embolus, no areas of infarct, no evidence of right heart strain on CTA. Received 1.5 mpk enoxaparin in ED and transitioned to Xarelto -Discharged on remaining 18.5 day course of xarelto 15mg BID -PCP continue [facility] otherwise indicated for provoked DVT/PE - hypercoagulability workup pending -Patient has a family history of DVTs, and numerous male and female relatives Discontinued Sprintec - advised to use condoms until follow up with PCP to discuss safer control options Right lower extremity pain Patient is endorsing significant right-sided lower extremity pain worse with standing likely secondary to increased pressure from gravity induced fluid shifts causing significant edema of the right lower extremity in addition to DVT and R knee arthroscopy related discomfort. -Consulted vascular surgery: continue anticoag, PT/ambulation and 20-30mm Hg below the knee compression stockings once pain subsides recommended -Received anti-anxiety and pain medications while hospitalized -Discharged with oxycodone 5 mg every 6 hours PRN (10 tabs) and hydroxyzine 25mg PO HS Psoriatic arthritis Well-controlled with methotrexate weekly (7.5 mg on Fridays) and hydroxychloroquine 200 mg twice daily - continued GERD -Continue omeprazole Anxiety Hydroxyzine 25mg HS discharged with (10 tabs) -Outpatient evaluation: Patient may benefit from SSRI DVT prophylaxis: Xarelto CODE STATUS: Full code Total Time Total Time Spent Total Time Spent (In Minutes): <60mins Discharge Plan Discharge Items Patient Disposition: Home - Self-Care Reason For Visit: SHORTNESS OF BREATH,CHEST PAIN,DVT+PE Discharge Diagnosis: Bilateral pulmonary embolism Condition: Good Discharge Goals: Decrease discomfort, Diagnostic testing and Therapeutic intervention Activity: Resume your previous activity Non-emergency contact: Primary Care Provider Call non-emergency contact if: you have any medication questions, your symptoms worsen, your pain is concerning for you and your temperature is above 100.5 Follow-up/Referrals: Darryl Medina [Primary Care Provider] - 09/09/18 12:50 pm (Please, follow up at Dr. Medina's office with his associate, Dr. Dav Quezada, on FridaySeptember 09 at 12:50 pm. *The office is in [address] of [facility]. If you need to change this appointment, call the office at [phone].) Diet: Regular Addtl Provider Instructions: Ms. Wilma Reyez you were admitted for concern shortness of breath and found to have blood clots in your right leg and lungs. You were started on blood thinners which you tolerated well and your symptoms improved. Please follow the instructions below: -Take Xarelto 15mg twice a day for another 18.5 days (your 1st dose will be tonight then starting tomorrow you will take one pill in the morning and one in the evening for another 18 days) -After the 18.5 days you will need to take Xarelto 20mg daily for about 3 months (your primary care doctor will determine the definite duration based on your hypercoagulability work up that is still pending and close clinical follow up and give you a prescription) -We have also prescribed you some pain medication, oxycodone 5mg which you can take every 6 hours as needed for pain -please take hydroxyzine 25mg at night as needed for anxiety -Please see your primary care doctor on Friday, 09/07 for follow up -Stop taking your control pill, Sprintec as it can increase your chance of forming blood clots - you will need to use condoms for control in the meantime and discuss other safer control options with your primary care doctor -Continue taking your remaining home medications as prescribed prior to your discharge -See your primary care doctor or return to the hospital if you have worsening symptoms or any other concerning symptoms Prescriptions: New oxycodone 5 mg Tablet 5 mg PO Q6H PRN (Reason: pain) Qty: 10 RF: 0 Xarelto 15 mg Tablet 15 mg PO BIDM 18 Days Qty: 37 RF: 0 hydroxyzine HCl 25 mg Tablet 25 mg PO HS PRN (Reason: anxiety) Qty: 10 RF: 0 Continued omeprazole 10 mg capsule,delayed release(DR/EC) 10 mg PO QAM RF: 0 methotrexate sodium 2.5 mg tablet 7.5 mg PO WK RF: 0 hydroxychloroquine 200 mg tablet 200 mg PO AMPM RF: 0 eletriptan 40 mg tablet 40 mg PO DIRECTED PRN (Reason: Migraine Headache) RF: 0 hydrocodone-acetaminophen 5-325 mg Tablet 1 tab PO Q6H PRN (Reason: Pain) RF: 0 folic acid 1 mg tablet 1 mg PO DAILY RF: 0 Discontinued norgestimate-ethinyl estradiol [Sprintec (28)] 0.25-35 mg-mcg tablet 1 tab PO DAILY RF: 0 Stand-Alone Forms: [facility] Discharge Orders: Discharge Order (Routine); Ordered 09/05/18 Ordered By: Inez Licona Admission Data Admit Date/Time: 09/03/18 11:57 Attending Provider: Benito Cho Admit Provider: Dav Quezada Primary Care Provider: Darryl Medina Other Providers: Nelly Rebolledo Eugene J Service: Medical Other Interventions: Discharge Summary Assessment (RN) Last Done: 09/05/18 10:56 DC Date/Time DO NOT enter until pt leaves facility: 09/05/18 14:05 Supervising Physician Co-Signing Physician Notes Attending attestation Pt seen and examined in concert with Dr. Licona. In agreement with the documented findings as noted in the resident documentation with any exceptions or additions as noted here. RLE pain improved on PO pain control regimen including oxycodone q6 and ibuprofe n 800mg q8. Reports breathing at baseline without complaint of SOB/CP On examination, S1/S2 nl RRR no MCG. CTAB. Bilateral PE and provoked DVT, right w/ pain - ibuprofen and oxycodone for short course for pain control. Continue Xarelto loading and follow with PCP to transition to maintenance and follow up hypercoag workup. Would also consider nonhormonal BC (paragard) and counseled for barrier contraception after discharge. Else see resident documentation as noted. Resident Activity Tracking Resident Involvement: Resident Care Provided Care Provided: Adult Hospital Medicine
[2018-09-07 23:10] LABS: Anti Cardiolipin Ab IgG <14 GPL (< = 14); Anti Cardiolipin Ab IgM <12 MPL (< = 12); Anti-Cardiolipin Ab IgA <11 APL (< = 11); B2 Glycoprotein IgA <9 SAU (<=20); B2 Glycoprotein IgG <9 SGU (<=20); B2 Glycoprotein IgM <9 SMU (<=20); Lupus Anticoagulant Weak Positive (Negative)
== END 2018-09-05 14:05 | disposition home or self-care (01) | DRG 299 ==
LOC: ED 14:21 → 2N 14:21 → SUATTDRO 18:58 → 2N 20:04 → SUATTDRO 09-03 11:57

== ENCOUNTER 2019-11-20 17:12 | Inpatient (IN) ==
[2019-11-20] MEDS ORDERED: SODIUM CHLORIDE 0.9% 1000ML 1,000 ML IV ONE (18:01)
[2019-11-20] MEDS ORDERED: ONDANSETRON INJ 2 MG/ML 2 ML VIAL IV STA (18:01)
--- NOTE | 2019-11-20 18:04 | Emergency Department Note ---
Impression & Plan Rectal pain, Leukocytosis, Nausea, Failure of outpatient treatment ED Provider Note NAME: GARCÍA TOM AGE: 44 SEX: F : 1975 ARRIVES VIA: Walk-In INFORMANT: [Patient] ED PROVIDER(S): [Aries Santos MD] CHIEF COMPLAINT: Rectal pain HISTORY OF PRESENT ILLNESS: The patient is a 44-year-old female who presents to the ER with months of increasing rectal pain/pressure. The pain is at the point now where it is a 9/10. She cannot sleep, she cannot really function. She has tried Tylenol for pain relief without any help. There has been no fever, she has been slightly nauseated but she thinks that is from the pain. No urinary complaints or vaginal discharge. The patient states that she is having bowel movements although, the bowel movements seem smaller than normal. The patient states that she has an appointment in 3 days to see a colorectal specialist from [place]. She could not wait though because of the pain. The patient has not had any imaging done. Her family doctor looked at the area and did not see anything obvious clinically. Patient has never had this issue before. There has been no trauma. REVIEW OF SYSTEMS: See HPI for pertinent positives and negatives. A total of ten systems were reviewed and were otherwise negative. PMHx/PSHx: See Below SOCIAL HISTORY: See Below. PHYSICAL EXAM: GENERAL: Patient is in mild distress from pain. HEENT: No acute trauma, normocephalic atraumatic, mucous membranes moist, no na ilya congestion, no scleral icterus. NECK: No stridor, no adenopathy, no meningismus, trachea is midline. LUNGS: Clear to auscultation bilaterally, no wheeze, no rhonchi, breath sounds equal. HEART: Without murmurs gallops or rubs, regular rate and rhythm. ABDOMEN: Soft, nontender, bowel sounds positive, no hernias, no peritonitis. EXTREMITIES: No cyanosis or edema, full range of motion of all the joints without pain or difficulty, no signs for acute trauma. NEUROLOGIC: Oriented x 3, no acute motor or sensory deficits, no focal weakness. SKIN: No rash, no jaundice, no diaphoresis. Rectal: There is no hemorrhoid, no rectal erythema. Digital exam reveals no rectal mass. The patient did have significant pain though with the digital exam. The patient does have some discomfort with palpation around the anal area. The most discomfort is in the area of soft tissue between the anal opening and vagina. DIFFERENTIAL DIAGNOSIS: Appendicitis, ovarian cyst, ovarian torsion, ectopic , TOA, PID, infections, cancer, abscess, perirectal abscess, diverticulitis, UTI, obstruction, mesenteric ischemia, aortic pathology, inflammatory bowel disease, renal colic, PUD, pancreatitis, biliary pathology, hernia, volvulus, constipation, as well as other pathologies. EMERGENCY DEPARTMENT COURSE/PROCEDURES: MEDICAL DECISION MAKING: There is a moderate leukocytosis, this could be consistent with infection or possibly her pain. There is a normal hemoglobin. There is a normal platelet count. No significant electrolyte abnormality or kidney failure. No concerning liver enzyme elevation. No evidence for pancreatitis. testing returned negative. Urinalysis did not show any evidence for infection. Abdominal and pelvis CT did not show any mass, no evidence for abscess. No obstruction. An IUD was noted to be in position. The patient presents in quite a bit of discomfort. Her symptoms have been escalating for months. The pain has become unbearable. On exam, she was tender in the soft tissue around the anus in particular, in the area between the vagina and anus. The patient was given IV Zosyn as empiric antibiotic coverage. She received IV morphine, IV Zofran and eventually some IV Dilaudid. She was given IV Phenergan and IV saline. The patient is still quite uncomfortable. She is quite nauseated. I do not think she is stable for discharge home. The cause for the pain is unclear. Further work-up is warranted. The patient may benefit from a GI consult and OB consult. General surgery can certainly weigh in. At this point, the cause for the pain is unclear. Further work-up is warranted. Hospitalization is warranted. I did speak with case management. The on-call hospitalist was consulted. Past Med/Surg History Medical History Arthritis Bronchitis Cough GERD (gastroesophageal reflux disease) Helicobacter pylori (H. pylori) infection Mucocele of orbital region Psoriatic arthritis Surgical History History of arthroscopy of knee History of shoulder surgery S/P cholecystectomy Family History Other Hypertension Social History Smoking Status: Never smoker Second Hand Exposure: No; Hx Alcohol Use: Yes Alcohol type: wine and hard liquor Hx Substance Use: No Preferred Language: Belarusian Communication Ability: Effective Visual Impairment: No Limitations Hearing Ability: Normal Fish Grader Required: No Beliefs That Will Affect Care: None Current Living Situation: Spouse and Family Feels Safe at Home: Yes Safety Concerns: Feels Safe At This Time Assistive Devices: None Allergies Allergies Allergy/AdvReac Type Severity Reaction Status Date / Time yeast, dried AdvReac Gastrointestinal Unverified 11/20/19 22:33 Upset Home Meds Home Medications Medication Instructions Recorded Confirmed hydroxychloroquine 200 mg PO BID 11/02/17 11/20/19 omeprazole 10 mg PO QAM 11/02/17 11/20/19 rivaroxaban [Xarelto] 20 mg PO QPM 02/20/19 11/20/19 ferrous sulfate [iron] 325 mg PO DAILY 11/20/19 11/20/19 leflunomide 10 mg PO Q2D 11/20/19 11/20/19 topiramate 25 mg PO BID 11/20/19 11/20/19 Results & Data (ED) Vital Signs Vital Signs - 24 hr 11/20/19 17:38 11/20/19 18:20 11/20/19 18:30 Temperature 37.3 C Temperature Source Oral Pulse Rate 72 62 Pulse Rate [Apical] 72 Pulse Rate from SpO2 Sensor 61 Respiratory Rate 18 20 14 Blood Pressure 166/79 H 116/71 Blood Pressure [Right Arm] 122/81 Blood Pressure Mean 108 79 Blood Pressure Mean [Right Arm] 94 Blood Pressure Position [Right Arm] Pulse Oximetry 100 100 98 Oxygen Delivery Method Room Air Room Air Room Air Sepsis Recent Fever Within 48 Hours No Sepsis New/Unexplained Change in Mental Status No Sepsis Action Taken by Nursing No Action Required 11/20/19 18:32 11/20/19 19:52 11/20/19 20:30 Temperature Temperature Source Pulse Rate 65 Pulse Rate [Apical] 54 L 67 Pulse Rate from SpO2 Sensor 64 Respiratory Rate 20 20 20 Blood Pressure Blood Pressure [Right Arm] 119/75 141/87 H Blood Pressure Mean Blood Pressure Mean [Right Arm] 89 105 Blood Pressure Position [Right Arm] Pulse Oximetry 98 98 100 Oxygen Delivery Method Room Air Room Air Room Air Sepsis Recent Fever Within 48 Hours Sepsis New/Unexplained Change in Mental Status Sepsis Action Taken by Nursing 11/20/19 21:08 11/20/19 22:46 Temperature Temperature Source Pulse Rate Pulse Rate [Apical] 69 58 L Pulse Rate from SpO2 Sensor Respiratory Rate 18 20 Blood Pressure Blood Pressure [Right Arm] 121/63 101/59 L Blood Pressure Mean Blood Pressure Mean [Right Arm] 82 73 Blood Pressure Position [Right Arm] Sitting Pulse Oximetry 96 100 Oxygen Delivery Method Room Air Room Air Sepsis Recent Fever Within 48 Hours Sepsis New/Unexplained Change in Mental Status Sepsis Action Taken by Residential Medications Current Medication List: was personally reviewed by me Laboratory Data Attestation: I reviewed the patient's lab results. Result diagrams: 11/20/19 18:07 11/20/19 18:07 Lab Results 11/20/19 11/20/19 11/20/19 Range/Units 18:07 18:07 18:07 WBC 14.53 H (4.8-10.8) K/uL RBC 4.34 (4.2-5.4) M/uL Hgb 12.9 (12.0-16.0) g/dL Hct 39.1 (37-47) % MCV 90.1 (80-100) fL MCH 29.7 (25-34) pg MCHC 33.0 (32-36) g/dL RDW Std Deviation 43.3 (36.4-46.3) fL RDW Coeff of Mary 13.1 (11.5-14.5) % Plt Count 330 (130-400) K/uL MPV 9.5 (7.4-10.4) fL Immature Gran % (Auto) 0.3 % Neut % (Auto) 76.6 % Lymph % (Auto) 14.9 % Patrick % (Auto) 7.3 % Eos % (Auto) 0.6 % Baso % (Auto) 0.3 % Neut # (Auto) 11.15 H (1.4-6.5) K/uL Lymph # (Auto) 2.16 (1.2-3.4) K/uL Patrick # (Auto) 1.06 H (0.11-0.59) K/uL Eos # (Auto) 0.08 (0-0.5) K/uL Baso # (Auto) 0.04 (0-0.2) K/uL Immature Gran # (Auto) 0.04 H (0.00-0.02) K/uL Sodium 141 (136-145) mmol/L Potassium 3.8 (3.5-5.1) mmol/L Chloride 109 H (98-107) mmol/L Carbon Dioxide 26 (21-32) mmol/L Anion Gap 6.0 (3-11) BUN 12 (7-18) mg/dl Creatinine 1.14 (0.6-1.2) mg/dl Est Cr Clr Drug Dosing 80.6 ml/min Est GFR ( Amer) 68.2 Est GFR (Non-Af Amer) 58.8 BUN/Creatinine Ratio 10.3 (10-20) Glucose 91 (70-99) mg/dl Calcium 9.0 (8.5-10.1) mg/dl Total Bilirubin 0.5 (0.2-1) mg/dl AST 16 (15-37) U/L ALT 29 (12-78) U/L Alkaline Phosphatase 62 (45-117) U/L Total Protein 7.5 (6.4-8.2) gm/dl Albumin 3.9 (3.4-5.0) gm/dl Globulin 3.6 (2.5-4.0) gm/dl Albumin/Globulin Ratio 1.1 (0.9-2) Lipase 97 (73-393) U/L HCG, Qual Negative (Negative) Urine Color Urine Appearance (Clear) Urine pH (4.5-7.5) Ur Specific [place] (1.000-1.030) Urine Protein (Negative) Urine Glucose (UA) (Negative) Urine Ketones (Negative) Urine Blood (Negative) Urine Nitrite (Negative) Urine Bilirubin (Negative) Urine Urobilinogen (Negative) Ur Leukocyte Esterase (Negative) Urine WBC (Auto) (0-5) /hpf Urine RBC (Auto) (0-4) /hpf U Hyaline Cast (Auto) (0-5) /lpf U Epithel Cells (Auto) (0-5) /lpf Urine Bacteria (Auto) (Negative) 11/20/19 Range/Units 19:00 WBC (4.8-10.8) K/uL RBC (4.2-5.4) M/uL Hgb (12.0-16.0) g/dL Hct (37-47) % MCV (80-100) fL MCH (25-34) pg MCHC (32-36) g/dL RDW Std Deviation (36.4-46.3) fL RDW Coeff of Mary (11.5-14.5) % Plt Count (130-400) K/uL MPV (7.4-10.4) fL Immature Gran % (Auto) % Neut % (Auto) % Lymph % (Auto) % Patrick % (Auto) % Eos % (Auto) % Baso % (Auto) % Neut # (Auto) (1.4-6.5) K/uL Lymph # (Auto) (1.2-3.4) K/uL Patrick # (Auto) (0.11-0.59) K/uL Eos # (Auto) (0-0.5) K/uL Baso # (Auto) (0-0.2) K/uL Immature Gran # (Auto) (0.00-0.02) K/uL Sodium (136-145) mmol/L Potassium (3.5-5.1) mmol/L Chloride (98-107) mmol/L Carbon Dioxide (21-32) mmol/L Anion Gap (3-11) BUN (7-18) mg/dl Creatinine (0.6-1.2) mg/dl Est Cr Clr Drug Dosing ml/min Est GFR ( Amer) Est GFR (Non-Af Amer) BUN/Creatinine Ratio (10-20) Glucose (70-99) mg/dl Calcium (8.5-10.1) mg/dl Total Bilirubin (0.2-1) mg/dl AST (15-37) U/L ALT (12-78) U/L Alkaline Phosphatase (45-117) U/L Total Protein (6.4-8.2) gm/dl Albumin (3.4-5.0) gm/dl Globulin (2.5-4.0) gm/dl Albumin/Globulin Ratio (0.9-2) Lipase (73-393) U/L HCG, Qual (Negative) Urine Color Yellow Urine Appearance Clear (Clear) Urine pH 6.5 (4.5-7.5) Ur Specific [place] 1.007 (1.000-1.030) Urine Protein Negative (Negative) Urine Glucose (UA) Negative (Negative) Urine Ketones Trace H (Negative) Urine Blood Negative (Negative) Urine Nitrite Negative (Negative) Urine Bilirubin Negative (Negative) Urine Urobilinogen Negative (Negative) Ur Leukocyte Esterase 1+ H (Negative) Urine WBC (Auto) 1-5 (0-5) /hpf Urine RBC (Auto) 0-4 (0-4) /hpf U Hyaline Cast (Auto) 0 (0-5) /lpf U Epithel Cells (Auto) 10-20 H (0-5) /lpf Urine Bacteria (Auto) Negative (Negative) Administered Medications Ferrous Sulfate (Ferrous Sulfate 325 Mg Tab) 325 mg PO DAILY GRACIE Stop: 12/21/19 08:59 Last Admin: 11/21/19 09:07 Dose: 325 mg Documented by: [id number] Hydroxychloroquine Sulfate (Hydroxychloroquine Sulfate 200 Mg Tab) 200 mg PO BID GRACIE Stop: 12/21/19 08:59 Last Admin: 11/21/19 09:07 Dose: 200 mg Documented by: [id number] Miscellaneous (Avara~Order Awaiting Action) 1 ea N/A QS GRACIE Stop: 12/21/19 07:59 Last Admin: 11/21/19 09:11 Dose: Not Given Documented by: [id number] Morphine Sulfate (Morphine Sulfate 4 Mg/Ml 1 Ml Carp\Vial) 3 mg IV Q4H PRN PRN Reason: Pain Stop: 12/05/19 00:37 Last Admin: 11/21/19 09:04 Dose: 3 mg Documented by: [id number] Admin: 11/21/19 05:48 Dose: 3 mg Documented by: [id number] Admin: 11/21/19 01:34 Dose: 3 mg Documented by: [id number] Nortriptyline HCl (Nortriptyline Hcl 10 Mg Cap) 10 mg PO HS GRACIE Stop: 12/21/19 00:37 Last Admin: 11/21/19 01:34 Dose: 10 mg Documented by: [id number] Pantoprazole Sodium (Pantoprazole 40 Mg Tab) 40 mg PO QAM GRACIE Stop: 12/21/19 08:59 Last Admin: 11/21/19 09:07 Dose: 40 mg Documented by: [id number] Topiramate (Topiramate 25 Mg Tab) 25 mg PO BID GRACIE Stop: 12/21/19 08:59 Last Admin: 11/21/19 09:08 Dose: 25 mg Documented by: [id number] Discontinued Medications Hydromorphone HCl (Hydromorphone Inj 1 Mg/Ml Syringe) 1 mg IV NOW STA Stop: 11/20/19 20:24 Last Admin: 11/20/19 20:27 Dose: 1 mg Documented by: [id number] Sodium Chloride (Nss 1000ml) 1,000 mls @ 999 mls/hr IV .Q1H1M ONE Stop: 11/20/19 19:01 Last Infusion: 11/20/19 19:30 Dose: 0 mls/hr Documented by: [id number] Admin: 11/20/19 18:16 Dose: 999 mls/hr Documented by: [id number] Promethazine HCl (Phenergan) 12.5 mg in 50.5 mls @ 202 mls/hr IV NOW STA Stop: 11/20/19 21:53 Last Infusion: 11/20/19 22:05 Dose: 0 mls/hr Documented by: [id number] Admin: 11/20/19 21:44 Dose: 202 mls/hr Documented by: [id number] Piperacillin Sod/Tazobactam Sod (Zosyn) 4.5 gm in 120 mls @ 240 mls/hr IV NOW ONE Stop: 11/20/19 22:32 Last Infusion: 11/20/19 22:43 Dose: 0 mls/hr Documented by: [id number] Admin: 11/20/19 22:11 Dose: 240 mls/hr Documented by: [id number] Sodium Chloride (Nss 1000ml) 1,000 mls @ 999 mls/hr IV .Q1H1M ONE Stop: 11/21/19 01:38 Last Infusion: 11/21/19 03:18 Dose: 0 mls/hr Documented by: [id number] Admin: 11/21/19 01:14 Dose: 999 mls/hr Documented by: [id number] Ioversol (Ioversol 100ml) 90 ml IV ONCE ONE Stop: 11/20/19 20:59 Last Admin: 11/20/19 20:59 Dose: 90 ml Documented by: [id number] Morphine Sulfate (Morphine Sulfate 4 Mg/Ml 1 Ml Carp\Vial) 6 mg IV Q15M PRN PRN Reason: Pain Stop: 12/04/19 18:00 Last Admin: 11/20/19 23:35 Dose: 6 mg Documented by: [id number] Admin: 11/20/19 18:17 Dose: 6 mg Documented by: [id number] Ondansetron HCl (Ondansetron Inj 2 Mg/Ml 2 Ml Vial) 4 mg IV NOW STA Stop: 11/20/19 18:02 Last Admin: 11/20/19 18:16 Dose: 4 mg Documented by: [id number] Imaging Data Radiologist's Impression: Abdominal and pelvis CT with IV and oral contrast: There is evidence for cholecystectomy. The liver, spleen and pancreas are unremarkable. No hydronephrosis. There is a normal appendix. No mass lesion identified. There is an IUD in the uterus. There is a normal urinary bladder. Physiologic pelvic fluid seen. No acute osseous findings. Blood Pressure Blood Pressure Findings: Elevated blood pressure Blood Pressure Disposition: Referred to patients primary care provider Discharge Plan Visit Data Chief Complaint: Rectal Pain Stated Complaint: STOMACH AND LOWER BACK PAIN ED Provider: Aries Santos Discharge Problem: Rectal pain, Leukocytosis, Nausea, Failure of outpatient treatment Patient Disposition: Admitted As Inpatient Condition: Fair Discharge Instructions Interventions: ED Discharge Assessment Last Done: 11/21/19 00:24 Discharge Problem: Leukocytosis Qualifiers: Leukocytosis type: unspecified Qualified Code(s): D72.829 - Elevated white blood cell count, unspecified
[2019-11-20] MEDS: MoRPHine SULFATE 4 MG/ML 1 ML CARP\\VIAL IV PRN ×2 (18:17→23:35)
[2019-11-20 18:21] LABS: Basophils # (auto) 0.04 K/uL (0-0.2); Basophils % (auto) 0.3 %; Eosinophils # (auto) 0.08 K/uL (0-0.5); Eosinophils % (auto) 0.6 %; Hematocrit (blood only) 39.1 % (37-47); Hemoglobin 12.9 g/dL (12.0-16.0); Immature Granulocytes # (auto) 0.04 K/uL (0.00-0.02); Immature Granulocytes % (auto) 0.3 %; Lymphocytes # (auto) 2.16 K/uL (1.2-3.4); Lymphocytes % (auto) 14.9 %; Mean Corpuscular Hemoglobin 29.7 pg (25-34); Mean Corpuscular Volume 90.1 fL (80-100); Mean Platelet Volume 9.5 fL (7.4-10.4); Monocytes # (auto) 1.06 K/uL (0.11-0.59); Monocytes % (auto) 7.3 %; Neutrophils # (auto) 11.15 K/uL (1.4-6.5); Neutrophils % (auto) 76.6 %; Platelet Count 330 K/uL (130-400); RDW Coefficient of Variation 13.1 % (11.5-14.5); RDW Standard Deviation 43.3 fL (36.4-46.3); Red Blood Count 4.34 M/uL (4.2-5.4); White Blood Count 14.53 K/uL (4.8-10.8)
[2019-11-20 18:39] LABS: Pregnancy Test, Serum Negative (Negative)
[2019-11-20 18:42] LABS: Albumin Level 3.9 gm/dl (3.4-5.0); BUN Creatinine Ratio 10.3 (10-20); Creatinine Clr Calc Pharmacy 80.6 ml/min; Est GFR (African American) 68.2; Est GFR (Non-African American) 58.8; Potassium 3.8 mmol/L (3.5-5.1)
[2019-11-20 18:44] LABS: Albumin Globulin Ratio 1.1 (0.9-2); Bilirubin,Total 0.5 mg/dl (0.2-1); Globulin 3.6 gm/dl (2.5-4.0); Total Protein 7.5 gm/dl (6.4-8.2)
[2019-11-20 19:08] LABS: Appearance Urine Clear (Clear); Bacteria Urine Automated Negative (Negative); Bilirubin Urine Negative (Negative); Blood Urine Negative (Negative); Cast Urine Automated 0 /lpf (0-5); Color Urine Yellow; Glucose Urine UA Negative (Negative); Ketones Urine Trace (Negative); Leukocyte Esterase Urine 1+ (Negative); Nitrite Urine Negative (Negative); Protein Urine Negative (Negative); RBC Urine Automated 0-4 /hpf (0-4); Specific Gravity Urine 1.007 (1.000-1.030); Urobilinogen Urine Negative (Negative); pH Urine 6.5 (4.5-7.5)
[2019-11-20] MEDS ORDERED: HYDROmorphone INJ 1 MG/ML SYRINGE IV STA (20:23)
[2019-11-20] MEDS ORDERED: IOVERSOL 100ml IV ONE (20:58)
[2019-11-20] MEDS ORDERED: PROMETHAZINE 12.5 MG/50.5 ML BAG IV STA (21:39)
[2019-11-20] MEDS ORDERED: PIPERACILL/TAZOBAC CONSULT ACTIVE PRN (22:03)
[2019-11-20] MEDS ORDERED: PIPERACILLIN/TAZOBACTAM 4.5 GM/120 ML BAG IV ONE (22:03)
--- NOTE | 2019-11-20 22:58 | History & Physical Report ---
Date of Service November 20, 2019 Assessment & Plan (1) Rectal pain: Wilma Reyez is a 44 year old woman witha past medical history of Psoriatic arthritis and history of PE last year who presents with several months of worsening rectal pain. Rectal Pain Broad differntial including thrombosed hemorrhoid, Pelvic floor muscle spasm, neuropathic pain, feels less likely to be obstetric in origin from complete absence of abdominal or adnexal pain Nothing on abdomen pelvis CT that would explain this, will treat with morphine 3 mg PRN May be secondary to pelvic floor muscle spasm, will try topical nitroglycerin and nortriptylene in addition for pain control GI consulted for possible scope vs flexible sigmoidoscopy Psoriatic arthritis Continuing home medication regime Could put her at slightly higher risk for infection, but no abscess detected on exam or CT will d/c antibiotics History of PE Will continue rivaroxaban DVT PPx: Rivaroxaban F/E/N: NPO for possible procedure tomorrow DIspo: Admit for pain control and GI evaluation tomorrow Full Code (2) Leukocytosis: (3) Failure of outpatient treatment: (4) Psoriatic arthritis: (5) Bilateral pulmonary embolism: History of Present Illness Chief Complaint: Rectal Pain Primary Care Provider: Darryl Medina Wilma Reyez is a 44 year old woman with past medical history of psoriatic arthritis on plaquenil and leflunomide who presents today with rectal pain. Her pain is hard to describe but she says it feels like a rectal fullness pain up past her anus. She first noticed this pain a few months ago and it lasted for a few days and was not as severe. It has been comging back progressively more often and more severely since that time. now it has been present constantly for many days. It is always severe but at times becomes unbearable for minutes at a time and then back to her severe baseline. She sometimes feels some nausea but she attributes this just to severe pain, no vomiting, no diarrhea or constipation. Her BM's have been regular and soft and she has one soft bowel movement per day. She denies any blood or dark tarry stools. She is very visibly uncomfortable and upset and is crying as she describes her symptoms to me. She denies any trauma to the area, she denies any vaginal symptoms, no discharge, no increased or decreased pain with defecation, no urinary symptoms. No positions seem to make it better or worse. She has not history of any pain like this in the past. She has seen her primary care Nurse practitioner about this who scheduled her for an appointment with colorectal surgeon from [place] but she feels the pain is so bad now she cannot sleep or function and cannot wait for the appointment. On presentation to ED patients vital signs WNL, was given morphine and dilaudid in ED with very little help to her symptoms she was in too much pain to return home. Labwork significant for elevated white count. CT abdomen pelivs obtained showing no masses, no abscess and no clear abnormalities. Allergies Allergy/AdvReac Type Severity Reaction Status Date / Time Yeast AdvReac Verified 11/21/19 16:40 yeast, dried AdvReac Gastrointestinal Unverified 11/20/19 22:33 Upset Home Medications Home Medications Medication Instructions Recorded Confirmed Type hydroxychloroquine 200 mg PO BID 11/02/17 11/20/19 History omeprazole 10 mg PO QAM 11/02/17 11/20/19 History rivaroxaban [Xarelto] 20 mg PO QPM 02/20/19 11/20/19 History ferrous sulfate [iron] 325 mg PO DAILY 11/20/19 11/20/19 History leflunomide 10 mg PO Q2D 11/20/19 11/20/19 History topiramate 25 mg PO BID 11/20/19 11/20/19 History Past Med/Surg History Medical History (Updated 11/22/19 @ 15:25 by Marisabel Christianson PA-C) Arthritis Bronchitis Cough GERD (gastroesophageal reflux disease) Helicobacter pylori (H. pylori) infection Mucocele of orbital region Psoriatic arthritis Surgical History History of arthroscopy of knee History of shoulder surgery S/P cholecystectomy Family History Other Hypertension Social History Smoking Status: Never smoker Second Hand Exposure: No; Hx Alcohol Use: Yes Alcohol type: wine and hard liquor Hx Substance Use: No Preferred Language: Sami Communication Ability: Effective Visual Impairment: No Limitations Hearing Ability: Normal Suit Attendant Required: No Beliefs That Will Affect Care: None Current Living Situation: Spouse and Family Feels Safe at Home: Yes Safety Concerns: Feels Safe At This Time Assistive Devices: None Review of Systems Review of Systems: All systems reviewed & are unremarkable except as noted in HPI & below Physical Exam Physical Exam: Constitutional: Well appearing woman in mild distress, tearful Eyes: EOMMI bilaterally, PERRLA Neck: Normal Respiratory: REgular breathing, no accessory muscle use, lung sounds vesicular in all lung logan Cardiovascular: Regular rate regular rhythm, no murmurs rubs skips or gallops, peripheral pulses intact, no lower limb edema GI: Abdomen soft and nontender, no masses, no organomegaly REctal: Exquisitely tender in all directions at all depths, some perineum tenderness between vagina and anus with deep palpations, no coccyx tenderness to palpation Results & Data Results & Data ([facility]) Vital Signs (Past 12 Hours) Vital Signs Temp Pulse Pulse Resp BP BP Pulse Ox 11/20/19 22:46 58 L 20 101/59 L 100 11/20/19 21:08 69 18 121/63 96 11/20/19 20:30 67 20 141/87 H 100 11/20/19 19:52 54 L 20 119/75 98 11/20/19 18:32 65 20 98 11/20/19 18:30 62 14 116/71 98 11/20/19 18:20 72 20 122/81 100 11/20/19 17:38 37.3 C 72 18 166/79 H 100 Supervising Physician Co-Signing Physician Notes Attending addendum: I have physically seen this patient, have supervised the medical residents activities, and agree with the H&P unless as otherwise noted. Assessment and Plan: Uncontrolled rectal pain- CT of abdomen pelvis negative For now, treat from a neuropathic perspective, starting nortriptyline 10 mg p.o. at bedtime. Continue topiramate 25 mg p.o. twice daily, will likely need to titrate. Topical nitroglycerin as needed every 6 hours, monitor blood pressure closely Morphine sulfate 3 mg IV every 4 hours as needed severe pain N.p.o. except medications Consult gastroenterology Psoriatic arthritis- Continue usual medications. History of pulmonary embolism Hold Xarelto for potential procedure Remainder of orders and notations as noted Resident Activity Tracking Resident Involvement: Resident Care Provided Care Provided: Adult [facility] Medicine (1) Leukocytosis Leukocytosis type: unspecified Qualified Code(s): D72.829 - Elevated white blood cell count, unspecified
[2019-11-21] MEDS ORDERED: SODIUM CHLORIDE 0.9% 1000ML 1,000 ML IV ONE (00:38)
[2019-11-21] MEDS: NORTRIPTYLINE HCL 10 MG CAP PO SCH ×2 (01:34→21:20)
[2019-11-21] MEDS: MoRPHine SULFATE 4 MG/ML 1 ML CARP\\VIAL IV PRN ×8 (01:34→23:49)
--- NOTE | 2019-11-21 08:42 | CT Scan Report ---
ABDOMEN AND PELVIS CT WITH IV AND ORAL CONTRAST CT DOSE: 1183.80 mGy.cm HISTORY: poss rectal or pelvic mass/abscess, pain TECHNIQUE: Multiaxial CT images of the abdomen and pelvis were performed following the use of intrave nous and oral contrast. A dose lowering technique was utilized adhering to the principles of ALARA. COMPARISON STUDY: Abdomen and pelvis CT 02/20/2019. FINDINGS: Best seen on image 89 of 100 there is a 1.8 x 1.3 cm left perirectal abscess. No supralevat or extension. Trace pelvic free fluid. This is likely physiologic. An intrauterine device appears in good position. The bladder and ovaries are within normal limits. No evidence for bowel obstruction. N ormal appendix. No retroperitoneal lymphadenopathy. Cholecystectomy. The liver, spleen, adrenal gland s, and pancreas are unremarkable. There is a left circumaortic renal vein. Small bilateral renal hypo dense lesions. These favor cysts. No hydronephrosis. Lung bases are clear. No pneumoperitoneum. No pn eumatosis. IMPRESSION: 1. A 1.8 x 1.3 cm left perirectal abscess. 2. Trace pelvic free fluid. This is likely physiologic. 3. Cholecystectomy. 4. An intrauterine device appears in good position. ACT 112: Negative or not required by law. Electronically signed by: Donte Nina M.D. 11/21/2019 8:41 AM
[2019-11-21] MEDS ORDERED: NITROGLYCERIN 2% 7.5 INCH, AQUAPHOR 67.5 GM, BARCODE IDENTIFIER 1 EA EXT PRN (09:00)
[2019-11-21] MEDS: FERROUS SULFATE 325 MG TAB PO SCH (09:07)
[2019-11-21] MEDS: PANTOprazole 40 MG TAB PO SCH (09:07)
[2019-11-21] MEDS: HYDROXYCHLOROQUINE SULFATE 200 MG TAB PO SCH ×2 (09:07→21:20)
[2019-11-21] MEDS: TOPIRAMATE 25 MG TAB PO SCH ×2 (09:08→21:19)
--- NOTE | 2019-11-21 10:52 | Gastrointestinal Consultation ---
Date of Consultation November 21, 2019 Assessment & Plan (1) Rectal pain: Symptoms and imaging consistent with a c abscess. Consult surgery, likely need drainage. Plan out patient colonoscopy. Continue antibiotics Present on Admission?: Yes History of Present Illness Reason for Consultation: Rectal pain Requesting Physician: Pankaj Hernández Attending Physician: Pankaj Hernández, DO History of Present Illness Months of rectal discomfort, present all the time. Not afftected by bowel function. Movements bother her. Sever pain for last few days. Visibly in some distress. Normal sexual function, mild dyspareunia. No bloody or purulent stool, No rectal trauma. No fever. No history or FH of IBD. Non contributing imaging findings reported before, but appears to have a rectal abscess. Noted increase white count. Allergies Allergy/AdvReac Type Severity Reaction Status Date / Time yeast, dried AdvReac Gastrointestinal Unverified 11/20/19 22:33 Upset Home Medications Home Medications Medication Instructions Recorded Confirmed Type hydroxychloroquine 200 mg PO BID 11/02/17 11/20/19 History omeprazole 10 mg PO QAM 11/02/17 11/20/19 History rivaroxaban [Xarelto] 20 mg PO QPM 02/20/19 11/20/19 History ferrous sulfate [iron] 325 mg PO DAILY 11/20/19 11/20/19 History leflunomide 10 mg PO Q2D 11/20/19 11/20/19 History topiramate 25 mg PO BID 11/20/19 11/20/19 History Patient History Medical History Arthritis Bronchitis Cough GERD (gastroesophageal reflux disease) Helicobacter pylori (H. pylori) infection Mucocele of orbital region Psoriatic arthritis Surgical History History of arthroscopy of knee History of shoulder surgery S/P cholecystectomy Family History Other Hypertension Social History Smoking Status: Never smoker Second Hand Exposure: No; Hx Alcohol Use: Yes Alcohol type: wine and hard liquor Hx Substance Use: No Preferred Language: Indonesian Communication Ability: Effective Visual Impairment: No Limitations Hearing Ability: Normal Printing Plate Clerk Required: No Beliefs That Will Affect Care: None Current Living Situation: Spouse and Family Feels Safe at Home: Yes Safety Concerns: Feels Safe At This Time Assistive Devices: None Review of Systems Review of Systems: All systems reviewed & are unremarkable except as noted in HPI & below Physical Exam Constitutional: + ill appearing Respiratory: normal respiratory effort, lungs clear to auscultation Cardiovascular: RRR, no murmur, no edema Gastrointestinal (Abdomen): normal bowel sounds, soft, nontender, no hepatosplenomegaly No rectal done given CT findings Results & Data ([facility]) Vital Signs (Past 12 Hours) Vital Signs Temp Pulse Pulse Resp BP Pulse Ox 11/21/19 07:09 36.7 C 60 16 102/63 96 11/21/19 00:30 36.7 C 50 L 16 106/62 100 11/21/19 00:23 49 L 20 99/47 L 96 11/20/19 23:40 51 L 20 88/58 L 94
[2019-11-21] MEDS ORDERED: PIPERACILL/TAZOBAC CONSULT ACTIVE PRN (11:32)
[2019-11-21] MEDS ORDERED: PIPERACILLIN/TAZOBACTAM 4.5 GM in DEXTROSE 5% 100 ML IV STA (11:32)
[2019-11-21] MEDS ORDERED: PIPERACILLIN/TAZOBACTAM 3.375 GM in DEXTROSE 5% 100 ML IV ONE (11:45)
--- NOTE | 2019-11-21 14:15 | Surgery Consultation ---
Date of Consultation November 21, 2019 Assessment & Plan (1) Rectal pain: This is a 44yF who presented to the [facility] ED on 11/20/19 with worsening rectal pain. CT a/p revealed a 1.3x1.8cm perirectal abscess. On examination there is no erythema, minimal induration, and she is tender to palpation erica- rectally. The abscess at this time is very small and may be amenable to conservative measures and pain control. No plan for surgical intervention at this time. Would recommend continuing IV abx for at least another 1-2 days, diet as tolerates, and pain control. We will continue to follow along. History of Present Illness Attending Physician: Pankaj Hernández DO History of Present Illness This is a 44yF who presented to the [facility] ED on 11/20/19 with worsening rectal pain. It appears she has had pain for quite some time, but over the course of the last few days it has been more severe and she could not sleep at night. In the ER patient underwent a CT a/p that revealed a 1.8 x 1.3 cm left perirectal abscess. Patient's WBC 14. She was started on IV abx and admitted under the medicine service. Allergies Allergy/AdvReac Type Severity Reaction Status Date / Time yeast, dried AdvReac Gastrointestinal Unverified 11/20/19 22:33 Upset Home Medications Home Medications Medication Instructions Recorded Confirmed Type hydroxychloroquine 200 mg PO BID 11/02/17 11/20/19 History omeprazole 10 mg PO QAM 11/02/17 11/20/19 History rivaroxaban [Xarelto] 20 mg PO QPM 02/20/19 11/20/19 History ferrous sulfate [iron] 325 mg PO DAILY 11/20/19 11/20/19 History leflunomide 10 mg PO Q2D 11/20/19 11/20/19 History topiramate 25 mg PO BID 11/20/19 11/20/19 History Patient History Medical History Arthritis Bronchitis Cough GERD (gastroesophageal reflux disease) Helicobacter pylori (H. pylori) infection Mucocele of orbital region Psoriatic arthritis Surgical History History of arthroscopy of knee History of shoulder surgery S/P cholecystectomy Family History Other Hypertension Social History Smoking Status: Never smoker Second Hand Exposure: No; Hx Alcohol Use: Yes Alcohol type: wine and hard liquor Hx Substance Use: No Preferred Language: Syriac Communication Ability: Effective Visual Impairment: No Limitations Hearing Ability: Normal Knife Edger Required: No Beliefs That Will Affect Care: None Current Living Situation: Spouse and Family Feels Safe at Home: Yes Safety Concerns: Feels Safe At This Time Assistive Devices: None Review of Systems Constitutional: no fever and no chills Genitourinary: rectal pain Physical Exam Physical Exam: awake/alert Respiratory: normal respiratory effort Gastrointestinal (Abdomen): + ttp L anterior erica-rectal region, no erythema, no drainage Results & Data ([facility] [place]) Vital Signs (Past 12 Hours) Vital Signs Temp Pulse Resp BP Pulse Ox 11/21/19 07:09 36.7 C 60 16 102/63 [address] WITH IV AND ORAL CONTRAST CT DOSE: 1183.80 mGy.cm HISTORY: poss rectal or pelvic mass/abscess, pain TECHNIQUE: Multiaxial CT images of the abdomen and pelvis were performed following the use of intravenous and oral contrast. A dose lowering technique was utilized adhering to the principles of ALARA. COMPARISON STUDY: Abdomen and pelvis CT 02/20/2019. FINDINGS: Best seen on image 89 of 100 there is a 1.8 x 1.3 cm left perirectal abscess. No supralevator extension. Trace pelvic free fluid. This is likely physiologic. An intrauterine device appears in good position. The bladder and ovaries are within normal limits. No evidence for bowel obstruction. Normal appendix. No retroperitoneal lymphadenopathy. Cholecystectomy. The liver, spleen, adrenal glands, and pancreas are unremarkable. There is a left circumaortic renal vein. Small bilateral renal hypodense lesions. These favor cysts. No hydronephrosis. Lung bases are clear. No pneumoperitoneum. No pneumatosis. IMPRESSION: 1. A 1.8 x 1.3 cm left perirectal abscess. 2. Trace pelvic free fluid. This is likely physiologic. 3. Cholecystectomy. 4. An intrauterine device appears in good position. ACT 112: Negative or not required by law. Electronically signed by: Donte Nina M.D. 11/21/2019 8:41 AM PG Care Time/CCT Total # of Minutes Spent Total Time Spent with Patient: Total time spent is greater than 50% in coordination of care (as documented) at patient's floor/unit and/or counseling patient: Coding Level of Care Code 06424 Inpt Consult Level 2 Diagnoses Rectal pain K62.89
--- NOTE | 2019-11-21 15:56 | Hospitalist Progress Note ---
Date of Service November 21, 2019 Assessment & Plan (1) Perirectal abscess: small, only 1x1cm general surgery recommends IV antibiotics for 1-2 days, will likely resolve without incision / drainage continue on Zosyn no fever, WBC stable likely treat with Zosyn until Friday, look for improvement in symptoms (2) Rectal pain: ongoing for 2 months, getting worse constant pain, maybe a little worse with moving bowels cause seems to be perirectal abscess (3) Leukocytosis: due to perirectal abscess (4) Nausea: resolved Admission and Anticipated Discharge Date Admission Date: November 20, 2019 Subjective patient still with constant, severe rectal pain CT abd/pelvis with perirectal abscess, small, 1x1cm discussed with general surgery, no need for surgical drainage, use IV antibiotics for 1-2 days, look for improvement reviewed chart and labs Review of Systems Review of Systems: All systems reviewed & are unremarkable except as noted in Subjective Gastrointestinal: + abdominal pain (rectal pain) Physical Exam Constitutional: WD/WN, vitals as above + overweight Eyes: PERRL, conjunctivae normal, anicteric sclerae ENMT: external ear and nose normal, oropharynx normal Neck: trachea midline, no thyromegaly Respiratory: normal respiratory effort, lungs clear to auscultation Cardiovascular: RRR, no murmur, no edema Gastrointestinal (Abdomen): normal bowel sounds, soft, nontender, no hepatosplenomegaly Musculoskeletal: no cyanosis or clubbing, extremities motor strength 5/5 Skin: no rashes, warm and dry Neurologic: patellar DTR's 2+ bilat, sensation intact and PERRL, EOMI, accommodation nl, no face palsy, no dysarthria Psychiatric: A+Ox3, euthymic affect Lymphatic: no cervical or axillary lymphadenopathy Results & Data Results & Data ([facility]) Vital Signs (Past 12 Hours) Vital Signs Temp Pulse Resp BP Pulse Ox 11/21/19 15:32 36.9 C 67 16 107/69 96 11/21/19 07:09 36.7 C 60 16 102/63 96 Medications Administered Current Inpatient Medications Acetaminophen (Acetaminophen 325 Mg Tab) 650 mg PO Q4H PRN PRN Reason: Mild Pain Stop: 12/21/19 13:36 Nitroglycerin 7.5 inch/Emollient Ointment 67.5 gm/BARCODE IDENTIFIER 1 ea 0 inch EXT BID PRN PRN Reason: Pain Stop: 12/21/19 08:59 Last Admin: 11/21/19 10:26 Dose: 7.5 appln Documented by: Ferrous Sulfate (Ferrous Sulfate 325 Mg Tab) 325 mg PO DAILY GRACIE Stop: 12/21/19 08:59 Last Admin: 11/21/19 09:07 Dose: 325 mg Documented by: Hydroxychloroquine Sulfate (Hydroxychloroquine Sulfate 200 Mg Tab) 200 mg PO BID GRACIE Stop: 12/21/19 08:59 Last Admin: 11/21/19 21:20 Dose: 200 mg Documented by: Piperacillin Sod/Tazobactam (Sod 3.375 gm/ Dextrose) 115 mls @ 28.75 mls/hr IV Q8H GRACIE; Protocol Stop: 12/01/19 17:59 Last Infusion: 11/21/19 21:55 Dose: Infused Documented by: Miscellaneous (Avara~Order Awaiting Action) 1 ea N/A QS GRACIE Stop: 12/21/19 07:59 Last Admin: 11/21/19 15:11 Dose: Not Given Documented by: Miscellaneous Information (Piperacill/Tazobac Consult Active) 1 ea N/A UD PRN PRN Reason: Consult Stop: 12/21/19 11:31 Morphine Sulfate (Morphine Sulfate 4 Mg/Ml 1 Ml Carp\Vial) 3 mg IV Q3H PRN PRN Reason: Pain Stop: 12/05/19 00:37 Last Admin: 11/21/19 21:55 Dose: 3 mg Documented by: Nortriptyline HCl (Nortriptyline Hcl 10 Mg Cap) 10 mg PO HS [facility] Stop: 12/21/19 00:37 Last Admin: 11/21/19 21:20 Dose: 10 mg Documented by: Pantoprazole Sodium (Pantoprazole 40 Mg Tab) 40 mg PO QAM GRACIE Stop: 12/21/19 08:59 Last Admin: 11/21/19 09:07 Dose: 40 mg Documented by: Rivaroxaban (Rivaroxaban 20 Mg Tab) 20 mg PO QPM GRACIE Stop: 12/21/19 20:59 Last Admin: 11/21/19 21:21 Dose: Not Given Documented by: Topiramate (Topiramate 25 Mg Tab) 25 mg PO BID [facility] Stop: 12/21/19 08:59 Last Admin: 11/21/19 21:19 Dose: 25 mg Documented by: PG Care Time/CCT Total # of Minutes Spent Total Time Spent with Patient: Total time spent is greater than 50% in coordination of care (as documented) at patient's floor/unit and/or counseling patient: Coding Level of Care Code 45773 Subseq Hosp Care Lvl 2 Diagnoses Perirectal abscess K61.1 Rectal pain K62.89 Leukocytosis D72.829 Leukocytosis type: unspecified Nausea R11.0 (1) Leukocytosis Leukocytosis type: unspecified Qualified Code(s): D72.829 - Elevated white blood cell count, unspecified
[2019-11-21] MEDS: PIPERACILLIN/TAZOBACTAM 3.375 GM in DEXTROSE 5% 100 ML IV SCH (18:07)
[2019-11-21] MEDS ORDERED: RIVAROXABAN 20 MG TAB PO SCH (21:00)
[2019-11-21] MEDS: ACETAMINOPHEN 325 MG TAB PO PRN (23:53)
[2019-11-22] MEDS: MoRPHine SULFATE 4 MG/ML 1 ML CARP\\VIAL IV PRN ×7 (02:51→21:49)
[2019-11-22] MEDS: PIPERACILLIN/TAZOBACTAM 3.375 GM in DEXTROSE 5% 100 ML IV SCH ×3 (02:51→18:14)
[2019-11-22] MEDS: PANTOprazole 40 MG TAB PO SCH (08:07)
[2019-11-22] MEDS: HYDROXYCHLOROQUINE SULFATE 200 MG TAB PO SCH ×2 (08:07→20:15)
[2019-11-22] MEDS: FERROUS SULFATE 325 MG TAB PO SCH (08:07)
[2019-11-22] MEDS: ACETAMINOPHEN 325 MG TAB PO PRN (08:07)
[2019-11-22] MEDS: TOPIRAMATE 25 MG TAB PO SCH ×2 (08:07→20:15)
--- NOTE | 2019-11-22 08:46 | Surgery Progress Note ---
Date of Service November 22, 2019 Assessment & Plan (1) Perirectal abscess: will plan OR incision/drainage tomorrow lithotomy position, general anesth test for covid NPO after midnight Admission and Anticipated Discharge Date Admission Date: November 20, 2019 Subjective cont to have pain Review of Systems Review of Systems: All systems reviewed & are unremarkable except as noted in HPI & below Physical Exam Physical Exam: mild swelling, induration at site Lt anterior perianal area tender, no erythema Constitutional: no acute distress Eyes: + anicteric sclerae Respiratory: normal respiratory effort; no respiratory distress Cardiovascular: Rate/Rhythm: regular rate Musculoskeletal: Head/Neck/Chest: head atraumatic Skin: no rashes, warm and dry Neurologic: awake Psychiatric: Orientation: alert Results & Data ([facility]) Vital Signs (Past 12 Hours) Vital Signs Temp Pulse Resp BP Pulse Ox 11/22/19 07:21 36.7 C 59 L 18 110/71 100 11/21/19 22:57 37.1 C 64 16 119/67 96 PG Care Time/CCT Total # of Minutes Spent Total Time Spent with Patient: Total time spent is greater than 50% in coordination of care (as documented) at patient's floor/unit and/or counseling patient: Coding Level of Care Code 74323 Inpt Consult Level 3 Diagnoses Perirectal abscess K61.1
--- NOTE | 2019-11-22 08:48 | Gastroenterology Progress Note ---
Date of Service November 22, 2019 Assessment & Plan (1) Perirectal abscess: Will follow with surgery. Will require outpatient colonoscopy. Will schedule once discharged. Obtain Crohn's antibodies and CBCD today Please refer to supervising physician addendum for further recommendations. Admission and Anticipated Discharge Date Admission Date: November 20, 2019 Subjective The patient is a pleasant 44-year-old female with past medical history to include psoriatic arthritis on Plaquenil and leflunomide, pulmonary emboli and DVT with lupus anticoagulant syndrome on chronic anticoagulation with Xarelto. She was scheduled to see Dr. Hilton from [facility] on 11/23/2019 but was unable to tolerate rectal pain and presented to the emergency department 11/20/2019 due to complaints of increasing rectal pain and pressure. The pain had been ongoing for sometime reports worsening over the last [address] imaging demonstrated a 1.8 x 1.3 cm left perirectal abscess. She was subsequently admitted for further management. Seen in consult by both GI and surgery. On exam/interview today, she reports that she has continued rectal pain. Lying on her left side and position of comfort. Denies any abdominal pain, nausea, vomiting. She reports that she is able to have a bowel movement. She states bowel movement will slightly increased rectal pain. She is able to void without difficulty. Denies personal or familial history of inflammatory bowel disease. Reports chronic loose stools. s/p cholecystectomy 8-9 years ago with loose stools beginning after. Denies melena or hematochezia. She is and lives locally. Lifetime non-smoker. Denies use of recreational drugs including marijuana. She is currently unemployed. Prior to this she was employed in [employer] at a company locally. Review of Systems Review of Systems: All systems reviewed & are unremarkable except as noted in Subjective Physical Exam Constitutional: no acute distress Eyes: no conjunctival abnormality Neck: normal visual inspection and trachea midline Respiratory: normal respiratory effort, lungs clear to auscultation Cardiovascular: RRR, no murmur, no edema Gastrointestinal (Abdomen): normal bowel sounds, soft, nontender, no hepatosplenomegaly Musculoskeletal: no cyanosis or clubbing, extremities motor strength 5/5 Skin: no rashes, warm and dry Neurologic: PERRL, EOMI, accommodation nl, no face palsy, no dysarthria Psychiatric: A+Ox3, euthymic affect Results & Data ([place]) Vital Signs (Past 12 Hours) Vital Signs Temp Pulse Resp BP Pulse Ox 11/22/19 07:21 36.7 C 59 L 18 110/71 100 11/21/19 22:57 37.1 C 64 16 119/67 96 Laboratory Results - last 48 hr 11/20/19 11/20/19 11/20/19 18:07 18:07 18:07 WBC 14.53 H RBC 4.34 Hgb 12.9 Hct 39.1 MCV 90.1 MCH 29.7 MCHC 33.0 RDW Std Deviation 43.3 RDW Coeff of Mary 13.1 Plt Count 330 MPV 9.5 Immature Gran % (Auto) 0.3 Neut % (Auto) 76.6 Lymph % (Auto) 14.9 [place] % (Auto) 7.3 Eos % (Auto) 0.6 Baso % (Auto) 0.3 Neut # (Auto) 11.15 H Lymph # (Auto) 2.16 [place] # (Auto) 1.06 H Eos # (Auto) 0.08 Baso # (Auto) 0.04 Immature Gran # (Auto) 0.04 H Sodium 141 Potassium 3.8 Chloride 109 H Carbon Dioxide 26 Anion Gap 6.0 BUN 12 Creatinine 1.14 Est Cr Clr Drug Dosing 80.6 Est GFR ( Amer) 68.2 Est GFR (Non-Af Amer) 58.8 BUN/Creatinine Ratio 10.3 Glucose 91 Calcium 9.0 Total Bilirubin 0.5 AST 16 ALT 29 Alkaline Phosphatase 62 Total Protein 7.5 Albumin 3.9 Globulin 3.6 Albumin/Globulin Ratio 1.1 Lipase 97 HCG, Qual Negative Urine Color Urine Appearance Urine pH Ur Specific [place] Urine Protein Urine Glucose (UA) Urine Ketones Urine Blood Urine Nitrite Urine Bilirubin Urine Urobilinogen Ur Leukocyte Esterase Urine WBC (Auto) Urine RBC (Auto) U Hyaline Cast (Auto) U Epithel Cells (Auto) Urine Bacteria (Auto) 11/20/19 19:00 WBC RBC Hgb Hct MCV MCH MCHC RDW Std Deviation RDW Coeff of Mary Plt Count MPV Immature Gran % (Auto) Neut % (Auto) Lymph % (Auto) [place] % (Auto) Eos % (Auto) Baso % (Auto) Neut # (Auto) Lymph # (Auto) [place] # (Auto) Eos # (Auto) Baso # (Auto) Immature Gran # (Auto) Sodium Potassium Chloride Carbon Dioxide Anion Gap BUN Creatinine Est Cr Clr Drug Dosing Est GFR ( Amer) Est GFR (Non-Af Amer) BUN/Creatinine Ratio Glucose Calcium Total Bilirubin AST ALT Alkaline Phosphatase Total Protein Albumin Globulin Albumin/Globulin Ratio Lipase HCG, Qual Urine Color Yellow Urine Appearance Clear Urine pH 6.5 Ur Specific [place] 1.007 Urine Protein Negative Urine Glucose (UA) Negative Urine Ketones Trace H Urine Blood Negative Urine Nitrite Negative Urine Bilirubin Negative Urine Urobilinogen Negative Ur Leukocyte Esterase 1+ H Urine WBC (Auto) 1-5 Urine RBC (Auto) 0-4 U Hyaline Cast (Auto) 0 U Epithel Cells (Auto) 10-20 H Urine Bacteria (Auto) Negative 11/21/2019: CT abdomen pelvis with IV and p.o. contrast demonstrated 1. A 1.8 x 1.3 cm left perirectal abscess. 2. Trace pelvic free fluid. This is likely physiologic. 3. Cholecystectomy. 4. An intrauterine device appears in good position.
[2019-11-22 09:42] LABS: Basophils # (auto) 0.04 K/uL (0-0.2); Basophils % (auto) 0.3 %; Eosinophils # (auto) 0.16 K/uL (0-0.5); Eosinophils % (auto) 1.4 %; Hematocrit (blood only) 40.7 % (37-47); Hemoglobin 12.8 g/dL (12.0-16.0); Immature Granulocytes # (auto) 0.02 K/uL (0.00-0.02); Immature Granulocytes % (auto) 0.2 %; Lymphocytes # (auto) 2.32 K/uL (1.2-3.4); Mean Corpuscular Hemoglobin 28.7 pg (25-34); Mean Corpuscular Hgb Conc 31.4 g/dL (32-36); Mean Corpuscular Volume 91.3 fL (80-100); Mean Platelet Volume 9.6 fL (7.4-10.4); Monocytes # (auto) 1.14 K/uL (0.11-0.59); Monocytes % (auto) 9.8 %; Neutrophils # (auto) 7.92 K/uL (1.4-6.5); Neutrophils % (auto) 68.3 %; Platelet Count 269 K/uL (130-400); RDW Coefficient of Variation 13.1 % (11.5-14.5); RDW Standard Deviation 44.1 fL (36.4-46.3); Red Blood Count 4.46 M/uL (4.2-5.4)
[2019-11-22 10:15] LABS: BUN Creatinine Ratio 9.3 (10-20); Calcium 8.8 mg/dl (8.5-10.1); Creatinine Clr Calc Pharmacy 94.7 ml/min; Est GFR (African American) 81.9; Est GFR (Non-African American) 70.7; Potassium 3.7 mmol/L (3.5-5.1)
[2019-11-22 10:16] LABS: C Reactive Protein 4.83 mg/dl (0-0.29)
--- NOTE | 2019-11-22 10:38 | XRay Report ---
XR chest 1V portable CLINICAL HISTORY: Preoperative chest COMPARISON STUDY: 07/23/2019 FINDINGS: The cardiac and mediastinal contours are normal. There is no evidence of focal pulmonary co nsolidation. There is no evidence of failure. No pleural effusions are visualized.[A linear density a t the left lung base laterally is felt to represent subsegmental atelectasis. IMPRESSION: No active disease in the chest. ACT 112: Negative or not required by law. Electronically signed by: Alden Justice M.D. 11/22/2019 10:36 AM
--- NOTE | 2019-11-22 14:40 | Hospitalist Progress Note ---
Date of Service November 22, 2019 Assessment & Plan (1) Perirectal abscess: * Ongoing pain for weeks * Presented with worsening pain * CT with 1.8 x 1.3cm LEFT perirectal abscess * Continue Zosyn (on day 2 of therapy) * WBC trending down, 11.6k from 14.5k * Increased morphine to 4mg IV prn * Added benadryl prn insomnia * GI, General surgery on consult -- appreciate assistance * Crohns labs added per GI * ESR 16, CRP elevated at 4.83 * CXR negative. EKG NSR without abn -- ok to process to OR from medical standpoint * NPO after midnight for I&D tomorrow * Continue to monitor (2) Rectal pain: * ongoing for 2 months, getting worse. constant pain. increased morphine as above * Waffle cushion ordered to see if some relief (3) Leukocytosis: * Improving -- due to perirectal abscess (4) Nausea: * Zofran, benadryl * Avoid phenergan as patient on plaquenil (5) Psoriatic arthritis: * Chronic * Continue home plaquenil, avara (non-formulary and patient ok without per her account -- was started last week, every other day, in place of sulfasalazine) (6) Bilateral pulmonary embolism: * Hx of -- August 2018 following knee surgery, however per patient, follows with Dr. 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 Still with continued pain, not being controlled with current dose of morphine. Hard to get comfortable in bed, worse with lying on her back. Discussed increasing dose and to notify RN if unable to adequately control. She notes bowel movement but this does not increase her pain. Still with some nausea related to pain. Due to this, she has had some decreased sleep. Agreeable for some benadryl this evening. Denies chest pain, shortness of breath, cough, abdominal pain, vomiting, headache. Eating/drinking without difficulty but not much appetite. Of note, recently started on Avara last week for her Psoriatic Arthritis in place of sulfasalazine. She notes she has probably only received approximately 2 doses as she was starting this every other day. Also had been scheduled with colorectal surgeon tomorrow but obviously pain increased prior to that and now hospitalized. With regards to her DVT/PE she states it was last August following surgery for her knee and when asked about duration, she states her oncologist told her she would be on the Xarelto lifelong as she is positive for lupus antibody. Plans for OR tomorrow with general surgery for I&D. Review of Systems Review of Systems: All systems reviewed & are unremarkable except as noted in HPI & below Physical Exam Constitutional: WD/WN, vitals as above + overweight; no acute distress and + uncomfortable Eyes: PERRL, conjunctivae normal, anicteric sclerae ENMT: external ear and nose normal, oropharynx normal Neck: trachea midline, no thyromegaly Respiratory: normal respiratory effort, lungs clear to auscultation Cardiovascular: RRR, no murmur, no edema Gastrointestinal (Abdomen): normal bowel sounds, soft, nontender, no hepatosplenomegaly Musculoskeletal: no cyanosis or clubbing, extremities motor strength 5/5 Skin: erythema and induration to LEFT anterior perianal region, tender to palpation. No expressible material Neurologic: PERRL, EOMI, accommodation nl, no face palsy, no dysarthria Psychiatric: A+Ox3, euthymic affect Lymphatic: no cervical or axillary lymphadenopathy Results & Data Results & Data ([facility]) Vital Signs (Past 12 Hours) Vital Signs Temp Pulse Resp BP Pulse Ox 11/22/19 07:21 36.7 C 59 L 18 110/71 100 Laboratory Results 11/22/19 11/22/19 11/22/19 Range/Units 09:35 09:35 09:20 WBC (4.8-10.8) K/uL RBC (4.2-5.4) M/uL Hgb (12.0-16.0) g/dL Hct (37-47) % MCV (80-100) fL MCH (25-34) pg MCHC (32-36) g/dL RDW Std Deviation (36.4-46.3) fL RDW Coeff of Mary (11.5-14.5) % Plt Count (130-400) K/uL MPV (7.4-10.4) fL Immature Gran % (Auto) % Neut % (Auto) % Lymph % (Auto) % [place] % (Auto) % Eos % (Auto) % Baso % (Auto) % Neut # (Auto) (1.4-6.5) K/uL Lymph # (Auto) (1.2-3.4) K/uL [place] # (Auto) (0.11-0.59) K/uL Eos # (Auto) (0-0.5) K/uL Baso # (Auto) (0-0.2) K/uL Immature Gran # (Auto) (0.00-0.02) K/uL ESR (0-21) mm/hr Sodium (136-145) mmol/L Potassium (3.5-5.1) mmol/L Chloride (98-107) mmol/L Carbon Dioxide (21-32) mmol/L Anion Gap (3-11) BUN (7-18) mg/dl Creatinine (0.6-1.2) mg/dl Est Cr Clr Drug Dosing ml/min Est GFR ( Amer) Est GFR (Non-Af Amer) BUN/Creatinine Ratio (10-20) Glucose (70-99) mg/dl Calcium (8.5-10.1) mg/dl C-Reactive Protein (0-0.29) mg/dl Anti-Proteinase 3 Pending Anti-Myeloperoxidase Pending ANCA Pending COVID-19 Eval Order Covid19 Done at [facility] COVID-19 PCR NEGATIVE (Negative) S.cerevisiae IgG Ab Pending S.cerevisiae IgA Ab Pending 11/22/19 11/22/19 11/22/19 Range/Units 09:20 09:20 09:20 WBC 11.60 H (4.8-10.8) K/uL RBC 4.46 (4.2-5.4) M/uL Hgb 12.8 (12.0-16.0) g/dL Hct 40.7 (37-47) % MCV 91.3 (80-100) fL MCH 28.7 (25-34) pg MCHC 31.4 L (32-36) g/dL RDW Std Deviation 44.1 (36.4-46.3) fL RDW Coeff of Mary 13.1 (11.5-14.5) % Plt Count 269 (130-400) K/uL MPV 9.6 (7.4-10.4) fL Immature Gran % (Auto) 0.2 % Neut % (Auto) 68.3 % Lymph % (Auto) 20.0 % [place] % (Auto) 9.8 % Eos % (Auto) 1.4 % Baso % (Auto) 0.3 % Neut # (Auto) 7.92 H (1.4-6.5) K/uL Lymph # (Auto) 2.32 (1.2-3.4) K/uL [place] # (Auto) 1.14 H (0.11-0.59) K/uL Eos # (Auto) 0.16 (0-0.5) K/uL Baso # (Auto) 0.04 (0-0.2) K/uL Immature Gran # (Auto) 0.02 (0.00-0.02) K/uL ESR 16 (0-21) mm/hr Sodium 138 (136-145) mmol/L Potassium 3.7 (3.5-5.1) mmol/L Chloride 109 H (98-107) mmol/L Carbon Dioxide 24 (21-32) mmol/L Anion Gap 5.0 (3-11) BUN 9 (7-18) mg/dl Creatinine 0.98 (0.6-1.2) mg/dl Est Cr Clr Drug Dosing 94.7 ml/min Est GFR ( Amer) 81.9 Est GFR (Non-Af Amer) 70.7 BUN/Creatinine Ratio 9.3 L (10-20) Glucose 78 (70-99) mg/dl Calcium 8.8 (8.5-10.1) mg/dl C-Reactive Protein 4.83 H (0-0.29) mg/dl Anti-Proteinase 3 Anti-Myeloperoxidase ANCA COVID-19 Eval Order COVID-19 PCR (Negative) S.cerevisiae IgG Ab S.cerevisiae IgA Ab PG Care Time/CCT Total # of Minutes Spent Total Time Spent with Patient: Total time spent is greater than 50% in coordination of care (as documented) at patient's floor/unit and/or counseling patient: Coding Level of Care Code 36579 Subseq Hosp Care Lvl 3 Diagnoses Perirectal abscess K61.1 Rectal pain K62.89 Leukocytosis D72.829 Leukocytosis type: unspecified Nausea R11.0 Psoriatic arthritis L40.50 Bilateral pulmonary embolism I26.99 DVT (deep venous thrombosis) I82.401 Affected thrombotic vein of extremity: unspecified vein of extremity Chronicity: unspecified DVT location: lower extremity Laterality: right Acid reflux K21.9 DVT prophylaxis Z29.9 (1) DVT (deep venous thrombosis) Affected thrombotic vein of extremity: unspecified vein of extremity Chronicity: unspecified DVT location: lower extremity Laterality: right Qualified Code(s): I82.401 - Acute embolism and thrombosis of unspecified deep veins of right lower extremity (2) Leukocytosis Leukocytosis type: unspecified Qualified Code(s): D72.829 - Elevated white blood cell count, unspecified
[2019-11-22] MEDS ORDERED: DiphenhydrAMINE HCL 50 MG/ML VIAL IV PRN (15:00)
--- NOTE | 2019-11-22 17:06 | Electrocardiogram Report ---
Test Reason : Blood Pressure : / mmHG Vent. Rate : 065 BPM Atrial Rate : 065 BPM P-R Int : 138 ms QRS Dur : 092 ms QT Int : 434 ms P-R-T Axes : 034 028 022 degrees QTc Int : 451 ms Normal sinus rhythm Normal ECG When compared with ECG of 20-FEB-2019 16:33, No significant change was found Confirmed by Jae Maxwell ([id number]) on 11/22/2019 5:05:52 PM Referred By: REFERRED SELF Confirmed By:Timur Maxwell
[2019-11-22] MEDS: NORTRIPTYLINE HCL 10 MG CAP PO SCH (20:15)
[2019-11-23] MEDS: MoRPHine SULFATE 4 MG/ML 1 ML CARP\\VIAL IV PRN ×3 (00:54→07:25)
[2019-11-23] MEDS: PIPERACILLIN/TAZOBACTAM 3.375 GM in DEXTROSE 5% 100 ML IV SCH ×2 (00:55→09:02)
--- NOTE | 2019-11-23 05:12 | Billing Data ---
Date of Service November 23, 2019 Coding Level of Care Code 40626 Initial Inpt Care Lvl 2
[2019-11-23 05:52] LABS: Basophils # (auto) 0.03 K/uL (0-0.2); Basophils % (auto) 0.3 %; Eosinophils # (auto) 0.16 K/uL (0-0.5); Eosinophils % (auto) 1.5 %; Hematocrit (blood only) 39.8 % (37-47); Hemoglobin 12.9 g/dL (12.0-16.0); Immature Granulocytes # (auto) 0.03 K/uL (0.00-0.02); Immature Granulocytes % (auto) 0.3 %; Lymphocytes # (auto) 2.18 K/uL (1.2-3.4); Lymphocytes % (auto) 20.1 %; Mean Corpuscular Hemoglobin 28.9 pg (25-34); Mean Corpuscular Hgb Conc 32.4 g/dL (32-36); Mean Corpuscular Volume 89.2 fL (80-100); Mean Platelet Volume 9.7 fL (7.4-10.4); Monocytes # (auto) 1.25 K/uL (0.11-0.59); Monocytes % (auto) 11.5 %; Neutrophils # (auto) 7.22 K/uL (1.4-6.5); Neutrophils % (auto) 66.3 %; Platelet Count 285 K/uL (130-400); RDW Coefficient of Variation 12.9 % (11.5-14.5); RDW Standard Deviation 41.7 fL (36.4-46.3); Red Blood Count 4.46 M/uL (4.2-5.4); White Blood Count 10.87 K/uL (4.8-10.8)
[2019-11-23 06:20] LABS: Albumin Level 3.3 gm/dl (3.4-5.0); BUN Creatinine Ratio 9.2 (10-20); Calcium 8.6 mg/dl (8.5-10.1); Creatinine Clr Calc Pharmacy 98.7 ml/min; Est GFR (African American) 86.1; Est GFR (Non-African American) 74.3; Potassium 3.7 mmol/L (3.5-5.1)
[2019-11-23 06:23] LABS: Albumin Globulin Ratio 0.9 (0.9-2); Bilirubin,Total 1.3 mg/dl (0.2-1); Globulin 3.7 gm/dl (2.5-4.0)
[2019-11-23] MEDS ORDERED: PROCHLORPERAZINE 10 MG in SYRINGE 8 ML IV PRN (08:19)
[2019-11-23] MEDS ORDERED: fentaNYL citrate 100 MCG/2 ML VIAL ONE (08:24)
[2019-11-23] MEDS ORDERED: MIDAZOLAM HCL 1 MG/ML 2ML VIAL ONE (08:25)
[2019-11-23] MEDS: HYDROXYCHLOROQUINE SULFATE 200 MG TAB PO SCH ×2 (09:01→20:20)
[2019-11-23] MEDS: FERROUS SULFATE 325 MG TAB PO SCH (09:01)
[2019-11-23] MEDS: TOPIRAMATE 25 MG TAB PO SCH ×2 (09:02→20:20)
[2019-11-23] MEDS: PANTOprazole 40 MG TAB PO SCH (09:02)
[2019-11-23] MEDS ORDERED: NEOSTIGMINE METHYLSULFATE 5 MG/5 ML SYR ONE (09:10)
[2019-11-23] MEDS ORDERED: LARYING-O-JET KIT (LTA) ONE (09:10)
[2019-11-23] MEDS ORDERED: KETOROLAC 30 MG/ML VIAL ONE (09:10)
[2019-11-23] MEDS ORDERED: DEXAMETHASONE SOD INJ 4 MG/ML VIAL ONE (09:10)
[2019-11-23] MEDS ORDERED: PROPOFOL IV EMULSION 10 MG/ML 20 ML VIAL IV ONE (09:10)
[2019-11-23] MEDS ORDERED: ONDANSETRON INJ 2 MG/ML 2 ML VIAL ONE ×2 (09:10→10:33)
[2019-11-23] MEDS ORDERED: LIDOCAINE HCL 2% 2 ML VIAL/AMP(20MG/ML) INFIL ONE (09:10)
[2019-11-23] MEDS ORDERED: PHENYLEPHRINE 100MCG/ML 5ML SYR ONE (09:10)
[2019-11-23] MEDS ORDERED: GLYCOPYRROLATE 0.2 MG/ML VIAL ONE (09:10)
[2019-11-23] MEDS ORDERED: ePHEDrine sulfate 50 MG/ML SYR ONE (09:10)
[2019-11-23] MEDS ORDERED: ROCURONIUM BROMIDE 10 MG/ML 5 ML VIAL IV ONE (09:10)
--- NOTE | 2019-11-23 09:17 | Anesthesiology Consultation ---
Date of Service November 23, 2019 Covid 19 negative on 11/22/19. Assessment & Plan (1) Encounter for pre-operative examination: Chart Review Chart Review: Acceptable Risk for Surgery and Patient NOT seen in Pre Admission Testing Consults Requested none History Surgery Operation Date: 11/23/19 10:20 Proposed Procedures p Incision and Drainage of Perirectal Abscess - Kaveh Beard MD, FACS Height/Weight Height: 5 ft 9 in Weight: 103.3 kg Allergies Allergy/AdvReac Type Severity Reaction Status Date / Time Yeast AdvReac Verified 11/21/19 16:40 yeast, dried AdvReac Gastrointestinal Unverified 11/20/19 22:33 Upset Medications Home Medications Medication Instructions Recorded Confirmed Last Taken hydroxychloroquine 200 mg PO BID 11/02/17 11/20/19 03/30/19 AM DOSE omeprazole 10 mg PO QAM 11/02/17 11/20/19 03/30/19 rivaroxaban [Xarelto] 20 mg PO QPM 02/20/19 11/20/19 03/30/19 ferrous sulfate [iron] 325 mg PO DAILY 11/20/19 11/20/19 Unknown leflunomide 10 mg PO Q2D 11/20/19 11/20/19 11/19/19 09:00 topiramate 25 mg PO BID 11/20/19 11/20/19 Unknown Active Medications Generic Name Dose Route Start Last Admin Trade Name Freq PRN Reason Stop Dose Admin Acetaminophen 650 mg 11/21/19 13:37 11/22/19 08:07 Acetaminophen 325 Mg Tab PO 12/21/19 13:36 650 mg Q4H PRN Administration Mild Pain Nitroglycerin 7.5 inch/ 0 inch 11/21/19 09:00 11/21/19 10:26 Emollient Ointment 67.5 gm/ EXT 12/21/19 08:59 7.5 appln BARCODE IDENTIFIER 1 ea BID PRN Administration Pain Ferrous Sulfate 325 mg 11/21/19 09:00 11/23/19 09:01 Ferrous Sulfate 325 Mg Tab PO 12/21/19 08:59 Not Given DAILY GRACIE Hydroxychloroquine Sulfate 200 mg 11/21/19 09:00 11/23/19 09:01 Hydroxychloroquine Sulfate 200 Mg Tab PO 12/21/19 08:59 Not Given BID GRACIE Piperacillin Sod/Tazobactam 115 mls @ 28.75 mls/hr 11/21/19 18:00 11/23/19 09:02 Sod 3.375 gm/ Dextrose IV 12/01/19 17:59 Not Given Q8H [facility] Protocol Miscellaneous 1 ea 11/21/19 08:00 11/23/19 07:22 Avara~Order Awaiting Action N/A 12/21/19 07:59 Not Given QS GRACIE Morphine Sulfate 4 mg 11/22/19 15:00 11/23/19 07:25 Morphine Sulfate 4 Mg/Ml 1 Ml Carp\Vial IV 12/05/19 14:59 4 mg Q3H PRN Administration Pain Nortriptyline HCl 10 mg 11/21/19 00:38 11/22/19 20:15 Nortriptyline Hcl 10 Mg Cap PO 12/21/19 00:37 10 mg HS GRACIE Administration Pantoprazole Sodium 40 mg 11/21/19 09:00 11/23/19 09:02 Pantoprazole 40 Mg Tab PO 12/21/19 08:59 Not Given QAM GRACIE Rivaroxaban 20 mg 11/21/19 21:00 11/21/19 21:21 Rivaroxaban 20 Mg Tab PO 12/21/19 20:59 Not Given QPM GRACIE Topiramate 25 mg 11/21/19 09:00 11/23/19 09:02 Topiramate 25 Mg Tab PO 12/21/19 08:59 Not Given BID GRACIE Past Medical History Medical History Arthritis Bronchitis Cough GERD (gastroesophageal reflux disease) Helicobacter pylori (H. pylori) infection Mucocele of orbital region Psoriatic arthritis Pulmonary embolus Past Family History Family History Other Hypertension Past Surgical History Surgical History History of arthroscopy of knee History of shoulder surgery S/P cholecystectomy Social History Smoking Status: Never smoker Hx Alcohol Use: Yes Alcohol type: wine and hard liquor alcohol intake frequency: holidays/special occasions only Hx Substance Use: No Physical Exam Vital Signs Last Vital Signs Temp 36.6 C 11/23/19 07:34 Pulse 74 11/23/19 07:34 Resp 18 11/23/19 07:34 BP 104/65 11/23/19 07:34 Pulse Ox 95 11/23/19 07:34 Testing Laboratory Results 11/23/19 05:29 11/23/19 05:29 Urine Color Yellow 11/20/19 19:00 Urine Appearance Clear (Clear) 11/20/19 19:00 Urine pH 6.5 (4.5-7.5) 11/20/19 19:00 Ur Specific [place] 1.007 (1.000-1.030) 11/20/19 19:00 Urine Protein Negative (Negative) 11/20/19 19:00 Urine Glucose (UA) Negative (Negative) 11/20/19 19:00 Urine Ketones Trace (Negative) H 11/20/19 19:00 Urine Nitrite Negative (Negative) 11/20/19 19:00 Ur Leukocyte Esterase 1+ (Negative) H 11/20/19 19:00 Urine WBC (Auto) 1-5 /hpf (0-5) 11/20/19 19:00 Urine RBC (Auto) 0-4 /hpf (0-4) 11/20/19 19:00 U Hyaline Cast (Auto) 0 /lpf (0-5) 11/20/19 19:00 U Epithel Cells (Auto) 10-20 /lpf (0-5) H 11/20/19 19:00 Urine Bacteria (Auto) Negative (Negative) 11/20/19 19:00 Electrocardiogram Date: 11/22/19 Findings: + NSR @ (65) Chest X-Ray Date: 11/22/19 Findings: + NAD
[2019-11-23] MEDS ORDERED: MEPERIDINE HCL 25 MG/ML CARP/VIAL IV PRN (09:19)
[2019-11-23] MEDS ORDERED: PHENYLEPHRINE 100MCG/ML 5ML SYR IV PRN (09:19)
[2019-11-23] MEDS ORDERED: ONDANSETRON INJ 2 MG/ML 2 ML VIAL IV PRN ×2 (09:19→11:48)
[2019-11-23] MEDS ORDERED: ATROPINE SULFATE 0.1 MG/ML 10ML SYR IV PRN (09:19)
[2019-11-23] MEDS ORDERED: fentaNYL citrate 100 MCG/2 ML VIAL IV PRN (09:19)
[2019-11-23] MEDS ORDERED: LABETALOL HCL IV 5 MG/ML 20ML IV PRN (09:19)
[2019-11-23] MEDS ORDERED: HYDROmorphone INJ 1 MG/ML SYRINGE IV PRN (09:19)
--- NOTE | 2019-11-23 09:59 | History & Physical Bridge Note ---
Date of Service November 23, 2019 History & Physical Bridge Note I have examined the patient, reviewed the History & Physical and in the interval since the performance of the History & Physical I have noted the following changes of clinical significance: no changes noted
--- NOTE | 2019-11-23 10:03 | Gastroenterology Progress Note ---
Date of Service November 23, 2019 Assessment & Plan (1) Perirectal abscess: Will follow with surgery. Will require outpatient colonoscopy. Will schedule once discharged. Crohn's antibodies pending. LFTs elevated - total bilirubin 1.3, AST 145, ALT 227, Alk phos 193. Normal on admission. ? medication vs. forming liver abscess. Reviewed with Dr. Segal. Obtain CT A/P with IV contrast tomorrow morning. Please refer to supervising physician addendum for further recommendations. Admission and Anticipated Discharge Date Admission Date: November 20, 2019 Subjective On exam/interview today, she reports that she has continued rectal pain. Lying on her left side in a position of comfort. Denies any abdominal pain, nausea, vomiting. She reports that she is able to have a bowel movement. She states bowel movement will slightly increased rectal pain. She is able to void without difficulty. Reports nausea this morning. Plan is OR today for I&D of abscess. States she is nervous about scheduled procedure. Review of Systems Review of Systems: All systems reviewed & are unremarkable except as noted in Subjective Physical Exam Constitutional: no acute distress Eyes: no conjunctival abnormality Neck: normal visual inspection and trachea midline Respiratory: normal respiratory effort, lungs clear to auscultation Cardiovascular: RRR, no murmur, no edema Gastrointestinal (Abdomen): normal bowel sounds, soft, nontender, no hepato splenomegaly Musculoskeletal: no cyanosis or clubbing, extremities motor strength 5/5 Skin: no rashes, warm and dry Neurologic: PERRL, EOMI, accommodation nl, no face palsy, no dysarthria Psychiatric: A+Ox3, euthymic affect Results & Data ([facility]) Vital Signs (Past 12 Hours) Vital Signs Temp Pulse Resp BP Pulse Ox 11/23/19 07:34 36.6 C 74 18 104/65 95 11/22/19 23:21 36.9 C 72 15 104/65 98 Laboratory Results - last 24 hr 11/22/19 11/22/19 11/22/19 09:20 09:20 09:35 WBC RBC Hgb Hct MCV MCH MCHC RDW Std Deviation RDW Coeff of Mary Plt Count MPV Immature Gran % (Auto) Neut % (Auto) Lymph % (Auto) [place] % (Auto) Eos % (Auto) Baso % (Auto) Neut # (Auto) Lymph # (Auto) [place] # (Auto) Eos # (Auto) Baso # (Auto) Immature Gran # (Auto) ESR 16 Sodium 138 Potassium 3.7 Chloride 109 H Carbon Dioxide 24 Anion Gap 5.0 BUN 9 Creatinine 0.98 Est Cr Clr Drug Dosing 94.7 Est GFR ( Amer) 81.9 Est GFR (Non-Af Amer) 70.7 BUN/Creatinine Ratio 9.3 L Glucose 78 Calcium 8.8 Total Bilirubin AST ALT Alkaline Phosphatase C-Reactive Protein 4.83 H Total Protein Albumin Globulin Albumin/Globulin Ratio COVID-19 PCR NEGATIVE 11/23/19 11/23/19 05:29 05:29 WBC 10.87 H RBC 4.46 Hgb 12.9 Hct 39.8 MCV 89.2 MCH 28.9 MCHC 32.4 RDW Std Deviation 41.7 RDW Coeff of Mary 12.9 Plt Count 285 MPV 9.7 Immature Gran % (Auto) 0.3 Neut % (Auto) 66.3 Lymph % (Auto) 20.1 [place] % (Auto) 11.5 Eos % (Auto) 1.5 Baso % (Auto) 0.3 Neut # (Auto) 7.22 H Lymph # (Auto) 2.18 [place] # (Auto) 1.25 H Eos # (Auto) 0.16 Baso # (Auto) 0.03 Immature Gran # (Auto) 0.03 H ESR Sodium 137 Potassium 3.7 Chloride 107 Carbon Dioxide 22 Anion Gap 8.0 BUN 9 Creatinine 0.94 Est Cr Clr Drug Dosing 98.7 Est GFR ( Amer) 86.1 Est GFR (Non-Af Amer) 74.3 BUN/Creatinine Ratio 9.2 L Glucose 86 Calcium 8.6 Total Bilirubin 1.3 H AST 145 H ALT 227 H Alkaline Phosphatase 193 H C-Reactive Protein Total Protein 7.0 Albumin 3.3 L Globulin 3.7 Albumin/Globulin Ratio 0.9 COVID-19 PCR
[2019-11-23] MEDS ORDERED: BUPIVACAINE 0.5 % 5 MG/1 ML MPF 30ML VIAL ONE (10:32)
[2019-11-23] MEDS ORDERED: ACETAMINOPHEN 1000 MG/100 ML IV IV ONE (10:53)
--- NOTE | 2019-11-23 10:53 | Post Operative Brief Note ---
PG Immediate Post Op with CF Date of Surgery November 23, 2019 Pre & Post Diagnosis Operation Date: 11/23/19 10:20 Pre-Op Diagnosis: Breonna rectal abcess Post-Op Diagnosis: Breonna rectal abscess I identified the patient and participated in the time-out.: Yes Procedure Operation Date: 11/23/19 10:20 Actual Procedures p Incision and Drainage of Perirectal Abscess(Not Applicable) - Kaveh Beard MD, FACS Surgeon Kaveh Beard MD, FACS Orn[employer]ology [employer] Estimated Blood Loss 10 Findings Consistent with Post-Op Diagnosis Specimens Specimen Description: 1: Left breonna rectal abscess, routine culture and sensitivity, aerobic, anerobic, gram stain Drains [place] Drain
--- NOTE | 2019-11-23 11:35 | Anesthesiology Progress Note ---
Date of Service November 23, 2019 Anesthesia Post Procedure Vital Signs Vital Signs: Temp Pulse Pulse Resp BP BP Pulse Ox 11/23/19 11:30 65 15 109/66 97 11/23/19 11:20 75 19 123/68 100 11/23/19 11:10 66 14 102/69 100 11/23/19 11:02 36.6 C 74 14 124/74 100 11/23/19 07:34 36.6 C 74 18 104/65 95 11/22/19 23:21 36.9 C 72 15 104/65 98 11/22/19 15:13 36.6 C 63 18 116/73 98 Pain Intensity Rectal: Pain Intensity: 2 Transfer of Care Handoff Completed per policy Notes Mental Status: alert / awake / arousable Patient Amnestic to Procedure: Yes Nausea / Vomiting: adequately controlled Pain: adequately controlled Airway Patency, RR, SpO2: stable & adequate BP & HR: stable & adequate Hydration State: stable & adequate Anesthetic Complications: no major complications apparent and Pt Satisfied with anesthetic care Notes: The patient is awake and comfortable.
[2019-11-23] MEDS ORDERED: PROMETHAZINE HCL 25 MG in SODIUM CHLORIDE 0.9% 50 ML IV PRN (11:48)
[2019-11-23] MEDS ORDERED: PROMETHAZINE HCL 12.5 MG in SODIUM CHLORIDE 0.9% 50 ML IV PRN (11:48)
[2019-11-23] MEDS ORDERED: HYDROmorphone INJ 0.5 MG/0.5 ML SYR IV PRN (11:48)
[2019-11-23] MEDS: CIPROFLOXACIN / D5W 400 MG/200 ML BAG IV SCH ×3 (11:51→22:49)
[2019-11-23] MEDS: metroNIDAZOLE 500 MG/100 ML BAG IV SCH ×2 (11:51→21:19)
--- NOTE | 2019-11-23 13:44 | Progress Notes ---
DATE: 11/23/2019 Addendum to the progress note by Felecia Frye: I interviewed and examined the patient as well as reviewing her chart and labs, also communicated with the pharmacist regarding her medications. The patient underwent incision and drainage of a rectal abscess today by Dr. Beard. The drainage was sent for culture and a Anat drain was placed. I examined the area, but it was bandaged quite heavily and I was not able to discern any findings other than the bandage. The patient does have kind of a global pigmentation to her skin and after checking with the pharmacist, it is described as a possible side effect of hydroxychloroquine. For now, the patient will stay on antibiotics and await cultures and allow the abscess to drain. Anti-SC antibodies are pending for possible Crohn's disease, and several weeks from now when the patient is healed, she will need a colonoscopy to assess for possible Crohn's disease. She denies any family history of Crohn's disease or any recent trauma or instrumentation of the rectal area.
[2019-11-23] MEDS: HYDROmorphone INJ 1 MG/ML SYRINGE IV PRN ×3 (13:50→21:36)
--- NOTE | 2019-11-23 14:45 | Hospitalist Progress Note ---
Date of Service November 23, 2019 Assessment & Plan (1) Perirectal abscess: Presented with pain ongoing for weeks -- had originally been set up to see colorectal specialist but pain worsened prior to appointment * Presented with worsening pain * CT with 1.8 x 1.3cm LEFT perirectal abscess * Zosyn switched to Cipro/Flagyl given elevation in LFTs, although could be developing liver abscess and GI rec CTA/P with IV contrast tomorrow morning. Will obtain daily EKGs to monitor QTC as she is on Plaquenil for her psoriatic arthritis. QTC on today's EKG 448ms, no issues. NSR 66bpm * WBC continues to trend down, 10.8k * Compazine prn nausea -- avoiding Zofran/Phenergan given QTC * Utilize PO oxycodone as needed for more long lasting pain relief * GI on consult -- appreciate assistance. Crohn's antibodies pending. Will need C-scope outpt once healed from current infection for crohn's eval * POD#0 s/p I&D with Dr. Beard this morning. EBL 10ml. * GS with moderate WBCs, no organisms. Cx pending-- follow * Labs in AM (2) Elevated LFTs: * New -- Tbili 1.3, AST 145, ALT 227, Alk phos 193. All had been normal on admission. Patient with hx mack. No findings on previous CT. * Could be related to Zosyn -- switched as above -- or possible forming liver abscess * They are rec a CT A/P in AM * LFTs in AM (3) Rectal pain: * ongoing for 2 months, getting worse. constant pain. increased morphine as above * Mikale cushion ordered to see if some relief (4) Leukocytosis: * Improving -- see above (5) Psoriatic arthritis: * Chronic * Continue home plaquenil, avara (non-formulary and patient ok without per her account -- was started last week, every other day, in place of sulfasalazine) (6) Bilateral pulmonary embolism: * Hx of -- August 2018 following knee surgery, however per patient, follows with Dr. Reis and was told will be on lifelong anticoagulation with Xarelto as she is positive for lupus ab * Will resume Xarelto likely tomorrow after re-eval by general surgery (7) Nausea: * This morning --> none reported following surgery * Utilize compazine as above prn (8) DVT (deep venous thrombosis): * Leading to PE 2018 as above * Xarelto -- on hold for OR today and will likely be resumed tomorrow (9) Acid reflux: * Protonix in lieu of omeprazole as patient on [employer] (10) Lupus anticoagulant disorder: * Noted- Xarelto as above (11) DVT prophylaxis: * Xarelto to be resumed tomorrow hopefully -- last dose 11/19 Dispo: possible discharge 1-2 days Admission and Anticipated Discharge Date Admission Date: November 20, 2019 Supervising Physician Co-Signing Physician Notes PA Supervision Note: I did not personally see or examine the patient today, but I verified all pratt points of ROGELIO Christianson's assessment and plan with the following exceptions/additions: None Subjective Patient evaluated this afternoon following surgery. Pain controlled but states she believes maybe more frequent dosing as it wears off before next dose due. Discussed ordering oral agents for longer lasting effect. Denies abdominal pain or nausea since this morning (felt she was nervous for procedure). Discussed elevated LFTs may be due to Zosyn and we will switch to Cipro/Flagyl and monitor her EKG as she is on plaquenil. Waffle cushion helping with pain relief when up in chair. She was eating lunch without difficulty during examination. Had a softer bowel movement and notes some diarrhea today. Discussed if increasing amount, change in color/consistency to notify nursing and we will send down for cdiff as she has been on abx. No fever, chills, chest pain, shortness of breath. Review of Systems Review of Systems: All systems reviewed & are unremarkable except as noted in HPI & below Physical Exam Constitutional: WD/WN, vitals as above comfortable and + overweight; no acute distress Eyes: PERRL, conjunctivae normal, anicteric sclerae ENMT: external ear and nose normal, oropharynx normal Neck: trachea midline, no thyromegaly Respiratory: normal respiratory effort, lungs clear to auscultation Cardiovascular: RRR, no murmur, no edema Gastrointestinal (Abdomen): normal bowel sounds, soft, nontender, no hepatosplenomegaly Musculoskeletal: no cyanosis or clubbing, extremities motor strength 5/5 Skin: heavily dressed perirectal abscess with Anat in place. dressing c/d/i tender to palpation Neurologic: PERRL, EOMI, accommodation nl, no face palsy, no dysarthria Psychiatric: Orientation: alert and oriented x 3 Lymphatic: no cervical or axillary lymphadenopathy Results & Data Results & Data ([facility]) Vital Signs (Past 12 Hours) Vital Signs Temp Pulse Pulse Pulse Resp BP BP 11/23/19 13:48 36.6 C 61 16 109/70 11/23/19 12:50 36.6 C 69 18 116/74 11/23/19 12:18 36.6 C 68 18 107/65 11/23/19 11:50 36.4 C L 65 16 110/71 11/23/19 11:40 36.6 C 63 15 116/66 11/23/19 11:30 65 15 109/66 11/23/19 11:20 75 19 123/68 11/23/19 11:10 66 14 102/69 11/23/19 11:02 36.6 C 74 14 124/74 11/23/19 07:34 36.6 C 74 18 104/65 Pulse Ox 11/23/19 13:48 96 11/23/19 12:50 100 11/23/19 12:18 97 11/23/19 11:50 97 11/23/19 11:40 97 11/23/19 11:30 97 11/23/19 11:20 100 11/23/19 11:10 100 11/23/19 11:02 100 11/23/19 07:34 95 Laboratory Results 11/23/19 11/23/19 Range/Units 05:29 05:29 WBC 10.87 H (4.8-10.8) K/uL RBC 4.46 (4.2-5.4) M/uL Hgb 12.9 (12.0-16.0) g/dL Hct 39.8 (37-47) % MCV 89.2 (80-100) fL MCH 28.9 (25-34) pg MCHC 32.4 (32-36) g/dL RDW Std Deviation 41.7 (36.4-46.3) fL RDW Coeff of Mary 12.9 (11.5-14.5) % Plt Count 285 (130-400) K/uL MPV 9.7 (7.4-10.4) fL Immature Gran % (Auto) 0.3 % Neut % (Auto) 66.3 % Lymph % (Auto) 20.1 % [place] % (Auto) 11.5 % Eos % (Auto) 1.5 % Baso % (Auto) 0.3 % Neut # (Auto) 7.22 H (1.4-6.5) K/uL Lymph # (Auto) 2.18 (1.2-3.4) K/uL [place] # (Auto) 1.25 H (0.11-0.59) K/uL Eos # (Auto) 0.16 (0-0.5) K/uL Baso # (Auto) 0.03 (0-0.2) K/uL Immature Gran # (Auto) 0.03 H (0.00-0.02) K/uL Sodium 137 (136-145) mmol/L Potassium 3.7 (3.5-5.1) mmol/L Chloride 107 (98-107) mmol/L Carbon Dioxide 22 (21-32) mmol/L Anion Gap 8.0 (3-11) BUN 9 (7-18) mg/dl Creatinine 0.94 (0.6-1.2) mg/dl Est Cr Clr Drug Dosing 98.7 ml/min Est GFR ( Amer) 86.1 Est GFR (Non-Af Amer) 74.3 BUN/Creatinine Ratio 9.2 L (10-20) Glucose 86 (70-99) mg/dl Calcium 8.6 (8.5-10.1) mg/dl Total Bilirubin 1.3 H (0.2-1) mg/dl AST 145 H (15-37) U/L ALT 227 H (12-78) U/L Alkaline Phosphatase 193 H (45-117) U/L Total Protein 7.0 (6.4-8.2) gm/dl Albumin 3.3 L (3.4-5.0) gm/dl Globulin 3.7 (2.5-4.0) gm/dl Albumin/Globulin Ratio 0.9 (0.9-2) PG Care Time/CCT Total # of Minutes Spent Total Time Spent with Patient: Total time spent is greater than 50% in coordination of care (as documented) at patient's floor/unit and/or counseling patient: Coding Level of Care Code 50707 Subseq Hosp Care Lvl 3 Diagnoses Perirectal abscess K61.1 Elevated LFTs R79.89 Rectal pain K62.89 Leukocytosis D72.829 Leukocytosis type: unspecified Psoriatic arthritis L40.50 Bilateral pulmonary embolism I26.99 Nausea R11.0 DVT (deep venous thrombosis) I82.401 Affected thrombotic vein of extremity: unspecified vein of extremity Chronicity: unspecified DVT location: lower extremity Laterality: right Acid reflux K21.9 Lupus anticoagulant disorder D68.62 DVT prophylaxis Z29.9 (1) DVT (deep venous thrombosis) Affected thrombotic vein of extremity: unspecified vein of extremity Chronicity: unspecified DVT location: lower extremity Laterality: right Qualified Code(s): I82.401 - Acute embolism and thrombosis of unspecified deep veins of right lower extremity (2) Leukocytosis Leukocytosis type: unspecified Qualified Code(s): D72.829 - Elevated white blood cell count, unspecified
--- NOTE | 2019-11-23 15:12 | Operative Report (OR) ---
DATE OF OPERATION: 11/23/2019 NAME OF OPERATION: Incision and drainage of perirectal abscess. PREOPERATIVE DIAGNOSIS: Perirectal abscess. POSTOPERATIVE DIAGNOSIS: Same. STAFF SURGEON: Kaveh Beard MD. ANESTHESIA: General. DESCRIPTION OF PROCEDURE: The patient was brought in the operating room and placed on the operating table in lithotomy position after appropriate LMA anesthesia. Her perineum was prepped and draped in usual fashion. She had an area of induration palpable to the left and anterior of the anal area between the anus and the vagina. I was able to pass an 18-gauge needle into the abscess cavity and aspirated approximately 2 mL of purulent fluid which was sent for culture. I then anesthetized the skin and subcutaneous tissue with 0.5% plain Marcaine, made an incision and then dissected down into the cavity, opening the cavity and then placing a Anat drain securing it using 2-0 chromic suture. After appropriate hemostasis a dressing applied and patient transferred to recovery room in stable condition. I attest to the content of the Intraoperative Record and any orders documented therein. Any exception s are noted below.
--- NOTE | 2019-11-23 17:35 | Electrocardiogram Report ---
Test Reason : Blood Pressure : / mmHG Vent. Rate : 066 BPM Atrial Rate : 066 BPM P-R Int : 160 ms QRS Dur : 092 ms QT Int : 428 ms P-R-T Axes : 035 011 -01 degrees QTc Int : 448 ms Normal sinus rhythm Normal ECG When compared with ECG of 22-NOV-2019 10:10, No significant change was found Confirmed by Jae Maxwell [id number]) on 11/23/2019 5:34:46 PM Referred By: REFERRED SELF Confirmed By:Timur Maxwell
[2019-11-23] MEDS: NORTRIPTYLINE HCL 10 MG CAP PO SCH (20:20)
[2019-11-24] MEDS: HYDROmorphone INJ 1 MG/ML SYRINGE IV PRN ×2 (01:05→05:27)
[2019-11-24] MEDS: metroNIDAZOLE 500 MG/100 ML BAG IV SCH ×3 (05:23→22:45)
[2019-11-24 05:54] LABS: Basophils # (auto) 0.03 K/uL (0-0.2); Basophils % (auto) 0.2 %; Eosinophils # (auto) 0.01 K/uL (0-0.5); Eosinophils % (auto) 0.1 %; Hematocrit (blood only) 38.4 % (37-47); Hemoglobin 13.3 g/dL (12.0-16.0); Immature Granulocytes # (auto) 0.03 K/uL (0.00-0.02); Immature Granulocytes % (auto) 0.2 %; Lymphocytes # (auto) 1.65 K/uL (1.2-3.4); Lymphocytes % (auto) 12.2 %; Mean Corpuscular Hemoglobin 30.6 pg (25-34); Mean Corpuscular Hgb Conc 34.6 g/dL (32-36); Mean Corpuscular Volume 88.3 fL (80-100); Mean Platelet Volume 9.7 fL (7.4-10.4); Monocytes # (auto) 1.29 K/uL (0.11-0.59); Monocytes % (auto) 9.5 %; Neutrophils % (auto) 77.8 %; Platelet Count 307 K/uL (130-400); RDW Coefficient of Variation 12.6 % (11.5-14.5); RDW Standard Deviation 40.9 fL (36.4-46.3); Red Blood Count 4.35 M/uL (4.2-5.4); White Blood Count 13.51 K/uL (4.8-10.8)
--- NOTE | 2019-11-24 06:01 | Surgery Progress Note ---
Date of Service November 24, 2019 Assessment & Plan (1) Perirectal abscess: Status post incision and drainage of perirectal abscess has Anat drain in place Required Dilaudid this a.m. On Cipro Flagyl-continue this for now-would plan discharge home on Augmentin unless medical team Feels otherwise Subcu heparin today, begin Xarelto tomorrow Patient is somewhat difficult with pain control-I do not think she would do well On p.o. meds at home at the present time Possible discharge tomorrow Admission and Anticipated Discharge Date Admission Date: November 20, 2019 Results & Data ([facility]) Vital Signs (Past 12 Hours) Vital Signs Temp Pulse Resp BP Pulse Ox 11/24/19 03:20 36.5 C 53 L 14 111/68 97 11/23/19 22:51 36.6 C 60 14 99/59 L 94 11/23/19 20:21 36.5 C 61 18 116/72 97 PG Care Time/CCT Total # of Minutes Spent Total Time Spent with Patient: Total time spent is greater than 50% in coordination of care (as documented) at patient's floor/unit and/or counseling patient: Coding Level of Care Code None Diagnoses Perirectal abscess K61.1
[2019-11-24] MEDS ORDERED: IOVERSOL 100ml IV ONE (06:11)
[2019-11-24 06:31] LABS: Albumin Level 3.3 gm/dl (3.4-5.0); BUN Creatinine Ratio 14.3 (10-20); Bilirubin Direct 0.1 mg/dl (0-0.2); Calcium 9.2 mg/dl (8.5-10.1); Est GFR (African American) 104.7; Est GFR (Non-African American) 90.3; Potassium 3.8 mmol/L (3.5-5.1)
[2019-11-24] MEDS: CIPROFLOXACIN / D5W 400 MG/200 ML BAG IV SCH ×2 (07:21→20:48)
[2019-11-24 07:23] LABS: Bilirubin,Total 0.7 mg/dl (0.2-1); Total Protein 7.3 gm/dl (6.4-8.2)
[2019-11-24] MEDS: TOPIRAMATE 25 MG TAB PO SCH ×2 (08:30→20:47)
[2019-11-24] MEDS: FERROUS SULFATE 325 MG TAB PO SCH (08:30)
[2019-11-24] MEDS: OXYCODONE HCL IR 5 MG TAB (IMMEDIATE RELEASE) PO PRN ×3 (08:30→19:29)
--- NOTE | 2019-11-24 08:30 | CT Scan Report ---
ABDOMEN AND PELVIS CT WITH IV CONTRAST CT DOSE: 831.98 mGy.cm HISTORY: Acutely elevated LFTs. Follow-up study in a patient with a 1.8 x 1.3 cm left perirectal absc ess. elevated LFTs, r/o abscess TECHNIQUE: Multiaxial CT images of the abdomen and pelvis were performed following the IV administrat ion of 93 cc of Optiray 320, A dose lowering technique was utilized adhering to the principles of [place] NADIA. COMPARISON STUDY: CT abdomen and pelvis 11/20/2019 FINDINGS: Trace pleural effusions. Minimal dependent subsegmental bibasilar atelectasis. There is no pneumatosis or pneumoperitoneum. The imaged inferior cardiac chambers are unremarkable. Trace pericar dial effusion. Spleen, pancreas and adrenal glands are unremarkable. Cholecystectomy. Mild intrahepat ic and extrahepatic biliary ductal prominence is unchanged and likely on a postsurgical basis. Unrema rkable appearance of the liver. Patency of the hepatic and portal veins. Bilateral renal cysts measure up to 1.6 cm on the right. No renal calculi or hydronephrosis. Partiall y decompressed urinary bladder. Satisfactory positioning of the IUD. Follicular changes of the left o vary. Trace free pelvic fluid, likely physiologic. Aorta and IVC are unremarkable. There is no adenop athy. No bowel obstruction or bowel wall thickening. Contrast is noted within the colon rectum. Mild fecal retention of the ascending colon. Normal appendix. There is slight interval enlargement of the left perirectal abscess on image 450 series 3 now measuring 2.2 x 1.4 cm, previously 1.8 x 1.3 cm. No supralevator extension. No fistula. The ischial anal tissues appear normal bilaterally. Transitional lumbosacral anatomy with lumbarization of S1. Bones appear intact. IMPRESSION: 1. Slight interval enlargement of the left perirectal abscess, now measuring 2.2 x 1.4 cm without sup ralevator extension. 2. Trace free pelvic fluid, likely physiologic. 3. IUD in situ. 4. Cholecystectomy. 5. Trace pleural effusions. ACT 112: Negative or not required by law. The above report was generated using voice recognition software. It may contain grammatical, syntax o r spelling errors. Electronically signed by: Yfn Persaud M.D. 11/24/2019 8:29 AM
[2019-11-24] MEDS: PANTOprazole 40 MG TAB PO SCH (08:31)
[2019-11-24] MEDS: HYDROXYCHLOROQUINE SULFATE 200 MG TAB PO SCH ×2 (08:31→20:47)
[2019-11-24] MEDS: HEPARIN SOD 5,000 UNIT/0.5 ML VIAL SQ SCH ×2 (08:34→20:46)
--- NOTE | 2019-11-24 08:58 | Gastroenterology Progress Note ---
Date of Service November 24, 2019 Assessment & Plan (1) Elevated LFTs: (2) Perirectal abscess: Perirectal abscess- s/p surgical I&D 11/23/2019. Antibiotics continue. Anti SC antibodies are pending for possible Crohn's disease and in several weeks from now the patient will need colonoscopy to assess for Crohn's disease. Denies any history of IBD. Will arrange for office visit follow-up and colonoscopy at discharge. LFTs elevated -improving. This morning total bilirubin 0.7, AST 48, ALT 169, Alk phos 188. CT abdomen pelvis obtained this morning demonstrated unremarkable appearance of the liver. There is a slight internal enlargement of the left perirectal abscess measuring 2.2 x 1.4 cm. Please refer to supervising physician addendum for further recommendations. Admission and Anticipated Discharge Date Admission Date: November 20, 2019 Supervising Physician Co-Signing Physician Notes I have seen and examined patient. I agree with CARON Hassan except as noted below. HPI Pt states she has improved rectal pain. Tolerating solid diet. CT a/p today increased size of abscess. LFTs today better. ABD pos bs, soft, no guarding nor rebound a/p perirectal abscess--clinically improved, IBD markers pending, colo to TI as outpt. elevated LFTs---improving, no hepatic pathology on repeat CT, possibly from meds or infection. Subjective The patient is sitting upright in bed tolerating p.o. regular diet this morning. She reports she is feeling significantly improved after I&D of a rectal abscess yesterday. She denies any nausea, vomiting, abdominal pain. She reports last bowel movement was 11/23/2019 in the a.m. prior to procedure. She reports positive flatus this morning. Denies significant complaint. Review of Systems Review of Systems: All systems reviewed & are unremarkable except as noted in Subjective Physical Exam Constitutional: no acute distress Eyes: no conjunctival abnormality Neck: normal visual inspection and trachea midline Respiratory: normal respiratory effort, lungs clear to auscultation Cardiovascular: RRR, no murmur, no edema Gastrointestinal (Abdomen): normal bowel sounds, soft, nontender, no hepatosplenomegaly Musculoskeletal: no cyanosis or clubbing, extremities motor strength 5/5 Skin: no rashes, warm and dry Neurologic: PERRL, EOMI, accommodation nl, no face palsy, no dysarthria Psychiatric: A+Ox3, euthymic affect Results & Data ([facility]) Vital Signs (Past 12 Hours) Vital Signs Temp Pulse Resp BP Pulse Ox 11/24/19 08:00 36.5 C 53 L 18 113/71 99 11/24/19 07:48 36.8 C 58 L 18 127/72 97 11/24/19 03:20 36.5 C 53 L 14 111/68 97 11/23/19 22:51 36.6 C 60 14 99/59 L 94 Laboratory Results - last 24 hr 11/24/19 11/24/19 05:22 05:22 WBC 13.51 H RBC 4.35 Hgb 13.3 Hct 38.4 MCV 88.3 MCH 30.6 MCHC 34.6 RDW Std Deviation 40.9 RDW Coeff of Mary 12.6 Plt Count 307 MPV 9.7 Immature Gran % (Auto) 0.2 Neut % (Auto) 77.8 Lymph % (Auto) 12.2 [place] % (Auto) 9.5 Eos % (Auto) 0.1 Baso % (Auto) 0.2 Neut # (Auto) 10.50 H Lymph # (Auto) 1.65 [place] # (Auto) 1.29 H Eos # (Auto) 0.01 Baso # (Auto) 0.03 Immature Gran # (Auto) 0.03 H Sodium 138 Potassium 3.8 Chloride 108 H Carbon Dioxide 23 Anion Gap 7.0 BUN 11 Creatinine 0.80 Est Cr Clr Drug Dosing 116.0 Est GFR ( Amer) 104.7 Est GFR (Non-Af Amer) 90.3 BUN/Creatinine Ratio 14.3 Glucose 86 Calcium 9.2 Total Bilirubin 0.7 D Direct Bilirubin 0.1 AST 48 H ALT 169 H Alkaline Phosphatase 188 H Total Protein 7.3 Albumin 3.3 L 11/24/2019: CT abdomen pelvis with IV contrast demonstrated Spleen, pancreas and adrenal glands are unremarkable. Cholecystectomy. Mild intrahepatic and extrahepatic biliary ductal prominence is unchanged and likely on a postsurgical basis. Unremarkable appearance of the liver. Patency of the hepatic and portal veins. 1. Slight interval enlargement of the left perirectal abscess, now measuring 2.2 x 1.4 cm without supralevator extension. 2. Trace free pelvic fluid, likely physiologic. 3. IUD in situ. 4. Cholecystectomy. 5. Trace pleural effusions.
--- NOTE | 2019-11-24 09:09 | Hospitalist Progress Note ---
Date of Service November 24, 2019 Assessment & Plan (1) Perirectal abscess: Presented with pain ongoing for weeks -- had originally been set up to see colorectal specialist but pain worsened prior to appointment * Presented with worsening pain * CT with 1.8 x 1.3cm LEFT perirectal abscess * Zosyn switched to Cipro/Flagyl given elevation in LFTs, which have improved on AM labs * --> plans to discharge on Augmentin when able * Daily EKGs while on cipro given QT prolongation on plaquenil, QTc 426ms on EKG today * Dilaudid, oxycodone prn pain --> did get IV this morning but not since switching to the oxycodone * Antiemetics prn, utilizing compazine * GI on consult -- appreciate assistance. * Crohn's antibodies pending. Will need C-scope outpt once healed from current infection for crohn's eval General surgery on consult POD#1 s/p I&D with Dr. Beard this morning. EBL 10ml. * GS with moderate WBCs, no organisms. Cx with pin-point growth, re-incubating-- follow * WBC increasing, 13.5k * Labs in AM (2) Elevated LFTs: * Improving since switched from Zosyn to Cipro/flagyl as above. * All had been normal on admission. Patient with hx mack. No findings on previous CT or repeat * Continue to trend (3) Rectal pain: * Improving -- secondary to above. Waffle cusion, k-pad prn (4) Leukocytosis: * WBC increased today although could be stress from surgery -- no fever, cough, shortness of breath, increased urinary frequency/dysuria noted. * Continue to monitor on AM labs (5) Psoriatic arthritis: * Chronic * Continue home plaquenil, avara (non-formulary and patient ok without per her account -- was started last week, every other day, in place of sulfasalazine) (6) Bilateral pulmonary embolism: * Hx of -- August 2018 following knee surgery, however per patient, follows with Dr. Reis and was told will be on lifelong anticoagulation with Xarelto as she is positive for lupus ab * Given heparin today and to resume Xarelto tomorrow per general surgery rec (7) Nausea: * Noted prior to surgery but none since that time * Antiemetics ordered prn as above (8) DVT (deep venous thrombosis): * Leading to PE 2018 as above * Xarelto -- on hold as above and likely to resume tomorrow (9) Acid reflux: * Protonix in lieu of omeprazole as patient on [employer] (10) Lupus anticoagulant disorder: * Noted- Xarelto as above (11) DVT prophylaxis: * Xarelto to be resumed tomorrow hopefully -- last dose 11/19 Admission and Anticipated Discharge Date Admission Date: November 20, 2019 Supervising Physician Co-Signing Physician Notes ROGELIO Supervision Note: I did not personally see or examine the patient today, but I verified all pratt points of ROGELIO Christianson's assessment and plan with the following exceptions/additions: None Subjective Patient evaluated this morning. Had still been quite painful requiring Dilaudid earlier this morning, but she states the oxycodone seems to be keeping pain under control later in the morning. Eating/drinking without difficulty. Did have some loose stools but no abdominal pain. Has been using ice to her low back due to pain from positioning from surgery with relief. Discussed will ordered K-pad and lidocaine patch to use as needed if additional benefit provided. Denies fever, chills, chest pain, shortness of breath, no further nausea since prior to surgery yesterday. Will continue to monitor cultures and hopefully transition to PO abx tomorrow for discharge if pain controlled and stable. LFTs improving now off of Zosyn. CT without liver abscess. Questions/concerns addressed at this time. Review of Systems Review of Systems: All systems reviewed & are unremarkable except as noted in HPI & below Physical Exam Constitutional: WD/WN, vitals as above comfortable and + overweight; no ac payton distress Eyes: PERRL, conjunctivae normal, anicteric sclerae ENMT: external ear and nose normal, oropharynx normal Neck: trachea midline, no thyromegaly Respiratory: normal respiratory effort, lungs clear to auscultation Auscultation: + wheezes (faint bibasilar crackles) Cardiovascular: RRR, no murmur, no edema Gastrointestinal (Abdomen): normal bowel sounds, soft, nontender, no hepatos plenomegaly Musculoskeletal: no cyanosis or clubbing, extremities motor strength 5/5 Skin: minimal erythema to left perianal region with Anat in place, tender to palpation, no purulent material expressed on palpation. dressing with tape, partially intact generalized tanned appearance to skin Neurologic: PERRL, EOMI, accommodation nl, no face palsy, no dysarthria Psychiatric: Orientation: alert and oriented x 3 Lymphatic: no cervical or axillary lymphadenopathy Results & Data Results & Data ([facility]) Vital Signs (Past 12 Hours) Vital Signs Temp Pulse Resp BP Pulse Ox 11/24/19 08:00 36.5 C 53 L 18 113/71 99 11/24/19 07:48 36.8 C 58 L 18 127/72 97 11/24/19 03:20 36.5 C 53 L 14 111/68 97 11/23/19 22:51 36.6 C 60 14 99/59 L 94 Laboratory Results 11/24/19 11/24/19 Range/Units 05:22 05:22 WBC 13.51 H (4.8-10.8) K/uL RBC 4.35 (4.2-5.4) M/uL Hgb 13.3 (12.0-16.0) g/dL Hct 38.4 (37-47) % MCV 88.3 (80-100) fL MCH 30.6 (25-34) pg MCHC 34.6 (32-36) g/dL RDW Std Deviation 40.9 (36.4-46.3) fL RDW Coeff of Mary 12.6 (11.5-14.5) % Plt Count 307 (130-400) K/uL MPV 9.7 (7.4-10.4) fL Immature Gran % (Auto) 0.2 % Neut % (Auto) 77.8 % Lymph % (Auto) 12.2 % Bleckley % (Auto) 9.5 % Eos % (Auto) 0.1 % Baso % (Auto) 0.2 % Neut # (Auto) 10.50 H (1.4-6.5) K/uL Lymph # (Auto) 1.65 (1.2-3.4) K/uL [place]ck[place] # (Auto) 1.29 H (0.11-0.59) K/uL Eos # (Auto) 0.01 (0-0.5) K/uL Baso # (Auto) 0.03 (0-0.2) K/uL Immature Gran # (Auto) 0.03 H (0.00-0.02) K/uL Sodium 138 (136-145) mmol/L Potassium 3.8 (3.5-5.1) mmol/L Chloride 108 H (98-107) mmol/L Carbon Dioxide 23 (21-32) mmol/L Anion Gap 7.0 (3-11) BUN 11 (7-18) mg/dl Creatinine 0.80 (0.6-1.2) mg/dl Est Cr Clr Drug Dosing 116.0 ml/min Est GFR ( Amer) 104.7 Est GFR (Non-Af Amer) 90.3 BUN/Creatinine Ratio 14.3 (10-20) Glucose 86 (70-99) mg/dl Calcium 9.2 (8.5-10.1) mg/dl Total Bilirubin 0.7 D (0.2-1) mg/dl Direct Bilirubin 0.1 (0-0.2) mg/dl AST 48 H (15-37) U/L ALT 169 H (12-78) U/L Alkaline Phosphatase 188 H (45-117) U/L Total Protein 7.3 (6.4-8.2) gm/dl Albumin 3.3 L (3.4-5.0) gm/dl PG Care Time/CCT Total # of Minutes Spent Total Time Spent with Patient: Total time spent is greater than 50% in coordination of care (as documented) at patient's floor/unit and/or counseling patient: Coding Level of Care Code 99287 Subseq Hosp Care Lvl 2 Diagnoses Perirectal abscess K61.1 Elevated LFTs R79.89 Rectal pain K62.89 Leukocytosis D72.829 Leukocytosis type: unspecified Psoriatic arthritis L40.50 Bilateral pulmonary embolism I26.99 Nausea R11.0 DVT (deep venous thrombosis) I82.401 Affected thrombotic vein of extremity: unspecified vein of extremity Chronicity: unspecified DVT location: lower extremity Laterality: right Acid reflux K21.9 Lupus anticoagulant disorder D68.62 DVT prophylaxis Z29.9 (1) DVT (deep venous thrombosis) Affected thrombotic vein of extremity: unspecified vein of extremity Chronicity: unspecified DVT location: lower extremity Laterality: right Qualified Code(s): I82.401 - Acute embolism and thrombosis of unspecified deep veins of right lower extremity (2) Leukocytosis Leukocytosis type: unspecified Qualified Code(s): D72.829 - Elevated white blood cell count, unspecified
[2019-11-24] MEDS ORDERED: LIDOCAINE 5% 1 PATCH TD PRN (11:07)
--- NOTE | 2019-11-24 11:53 | Electrocardiogram Report ---
Test Reason : Blood Pressure : / mmHG Vent. Rate : 049 BPM Atrial Rate : 049 BPM P-R Int : 160 ms QRS Dur : 094 ms QT Int : 472 ms P-R-T Axes : 040 023 018 degrees QTc Int : 426 ms Sinus bradycardia Otherwise normal ECG When compared with ECG of 23-NOV-2019 14:21, No significant change was found Confirmed by Jae Maxwell ([id number]) on 11/24/2019 11:53:40 AM Referred By: REFERRED SELF Confirmed By:Timur Maxwell
[2019-11-24] MEDS: ACETAMINOPHEN 325 MG TAB PO PRN (18:08)
[2019-11-24] MEDS: NORTRIPTYLINE HCL 10 MG CAP PO SCH (20:47)
[2019-11-24] MEDS ORDERED: DiphenhydrAMINE HCL 50 MG/ML VIAL IV STA (22:58)
[2019-11-25] MEDS: metroNIDAZOLE 500 MG/100 ML BAG IV SCH (06:10)
--- NOTE | 2019-11-25 06:56 | Surgery Progress Note ---
Date of Service November 25, 2019 Assessment & Plan (1) Perirectal abscess: doing much better begin augmentin begin xarelto d/c home if ok with med team see in office next week scripts sent Admission and Anticipated Discharge Date Admission Date: November 20, 2019 Results & Data ([facility]) Vital Signs (Past 12 Hours) Vital Signs Temp Pulse Resp BP Pulse Ox 11/24/19 23:25 36.8 C 57 L 16 97/60 L 98 PG Care Time/CCT Total # of Minutes Spent Total Time Spent with Patient: Total time spent is greater than 50% in coordination of care (as documented) at patient's floor/unit and/or counseling patient: Coding Level of Care Code None Diagnoses Perirectal abscess K61.1
[2019-11-25] MEDS: HYDROXYCHLOROQUINE SULFATE 200 MG TAB PO SCH (07:54)
[2019-11-25] MEDS: FERROUS SULFATE 325 MG TAB PO SCH (07:55)
[2019-11-25] MEDS: PANTOprazole 40 MG TAB PO SCH (07:55)
[2019-11-25] MEDS: TOPIRAMATE 25 MG TAB PO SCH (07:55)
[2019-11-25] MEDS ORDERED: AMOXICILLIN/CLAVULANATE 875 MG TAB PO SCH (08:00)
[2019-11-25 08:09] LABS: Basophils # (auto) 0.04 K/uL (0-0.2); Basophils % (auto) 0.4 %; Eosinophils # (auto) 0.12 K/uL (0-0.5); Eosinophils % (auto) 1.2 %; Hematocrit (blood only) 37.6 % (37-47); Hemoglobin 12.6 g/dL (12.0-16.0); Immature Granulocytes # (auto) 0.05 K/uL (0.00-0.02); Immature Granulocytes % (auto) 0.5 %; Lymphocytes # (auto) 2.48 K/uL (1.2-3.4); Lymphocytes % (auto) 24.5 %; Mean Corpuscular Hemoglobin 29.8 pg (25-34); Mean Corpuscular Hgb Conc 33.5 g/dL (32-36); Mean Corpuscular Volume 88.9 fL (80-100); Mean Platelet Volume 9.8 fL (7.4-10.4); Monocytes # (auto) 1.03 K/uL (0.11-0.59); Monocytes % (auto) 10.2 %; Neutrophils # (auto) 6.42 K/uL (1.4-6.5); Neutrophils % (auto) 63.2 %; Platelet Count 311 K/uL (130-400); RDW Coefficient of Variation 13.1 % (11.5-14.5); RDW Standard Deviation 42.1 fL (36.4-46.3); Red Blood Count 4.23 M/uL (4.2-5.4); White Blood Count 10.14 K/uL (4.8-10.8)
[2019-11-25 08:35] LABS: Albumin Level 3.1 gm/dl (3.4-5.0); BUN Creatinine Ratio 14.2 (10-20); Calcium 9.2 mg/dl (8.5-10.1); Creatinine Clr Calc Pharmacy 96.7 ml/min; Est GFR (Non-African American) 72.4; Potassium 3.4 mmol/L (3.5-5.1)
[2019-11-25 08:38] LABS: Albumin Globulin Ratio 0.8 (0.9-2); Bilirubin,Total 0.5 mg/dl (0.2-1); Globulin 3.7 gm/dl (2.5-4.0); Total Protein 6.8 gm/dl (6.4-8.2)
[2019-11-25] MEDS ORDERED: POTASSIUM CHLORIDE 20 MEQ TABCR PO STA (08:38)
[2019-11-25] MEDS ORDERED: LEFLUNOMIDE 10 MG TAB PO SCH (09:00)
[2019-11-25] MEDS: OXYCODONE HCL IR 5 MG TAB (IMMEDIATE RELEASE) PO PRN (09:13)
[2019-11-25] MEDS: HEPARIN SOD 5,000 UNIT/0.5 ML VIAL SQ SCH (09:38)
--- NOTE | 2019-11-25 09:59 | Gastroenterology Progress Note ---
Date of Service November 25, 2019 Assessment & Plan (1) Perirectal abscess: improved post I and D and Abx. Further per surgery. Discussed with hospitalist ROGELIO regarding recommend outpt Gi f/u in 2-3 weeks which she will set up and at that OV plan colonscopy to look for Crohns as possible etiology. elevated LFTS--improved, likely from Zosyn which was switched. Will sign off. Please call for further questions. Admission and Anticipated Discharge Date Admission Date: November 20, 2019 Subjective CC rectal pain improved HPI Pt states rectal pain much improved. No abd pain. Physical Exam Gastrointestinal (Abdomen): normal bowel sounds, soft, nontender, no hepatosplenomegaly Results & Data ([facility]) Vital Signs (Past 12 Hours) Vital Signs Temp Pulse Resp BP Pulse Ox 11/25/19 07:15 37.0 C 64 15 109/70 99 11/24/19 23:25 36.8 C 57 L 16 97/60 L 98
--- NOTE | 2019-11-25 10:35 | Discharge Summary ---
Date of Service November 25, 2019 Admission HPI Per Admitting Provider Wilma Reyez is a 44 year old woman with past medical history of psoriatic arthritis on plaquenil and leflunomide who presents today with rectal pain. Her pain is hard to describe but she says it feels like a rectal fullness pain up past her anus. She first noticed this pain a few months ago and it lasted for a few days and was not as severe. It has been comging back progressively more often and more severely since that time. now it has been present constantly for many days. It is always severe but at times becomes unbearable for minutes at a time and then back to her severe baseline. She sometimes feels some nausea but she attributes this just to severe pain, no vomiting, no diarrhea or constipation. Her BM's have been regular and soft and she has one soft bowel movement per day. She denies any blood or dark tarry stools. She is very visibly uncomfortable and upset and is crying as she describes her symptoms to me. She denies any trauma to the area, she denies any vaginal symptoms, no discharge, no increased or decreased pain with defecation, no urinary symptoms. No positions seem to make it better or worse. She has not history of any pain like this in the past. She has seen her primary care Nurse practitioner about this who scheduled her for an appointment with colorectal surgeon from [place] but she feels the pain is so bad now she cannot sleep or function and cannot wait for the appointment. On presentation to ED patients vital signs WNL, was given morphine and dilaudid in ED with very little help to her symptoms she was in too much pain to return home. Labwork significant for elevated white count. CT abdomen pelivs obtained showing no masses, no abscess and no clear abnormalities. Admission Exam Per Admitting Provider Constitutional: Well appearing woman in mild distress, tearful Eyes: EOMMI bilaterally, PERRLA Neck: Normal Respiratory: REgular breathing, no accessory muscle use, lung sounds vesicular in all lung logan Cardiovascular: Regular rate regular rhythm, no murmurs rubs skips or gallops, peripheral pulses intact, no lower limb edema GI: Abdomen soft and nontender, no masses, no organomegaly REctal: Exquisitely tender in all directions at all depths, some perineum tenderness between vagina and anus with deep palpations, no coccyx tenderness to palpation Principal Diagnosis Perirectal Abscess Discharge Exam Constitutional WD/WN, vitals as above comfortable and + overweight; no acute distress tanned skin Eyes PERRL, conjunctivae normal, anicteric sclerae ENMT external ear and nose normal, oropharynx normal Neck trachea midline, no thyromegaly Respiratory normal respiratory effort, lungs clear to auscultation faint bibasilar crackles Cardiovascular RRR, no murmur, no edema Gastrointestinal (Abdomen) normal bowel sounds, soft, nontender, no hepatosplenomegaly Musculoskeletal no cyanosis or clubbing, extremities motor strength 5/5 Skin minimal erythema/minimally tender L perirectal region Neurologic PERRL, EOMI, accommodation nl, no face palsy, no dysarthria Psychiatric Orientation: alert and oriented x 3 Lymphatic no cervical or axillary lymphadenopathy Discharge Data Allergies Allergy/AdvReac Type Severity Reaction Status Date / Time Yeast AdvReac Verified 11/21/19 16:40 yeast, dried AdvReac Gastrointestinal Unverified 11/20/19 22:33 Upset Consultations 11/20/19 22:02 ED Decision to Admit Stat 11/21/19 00:38 Consult Gastroenterology Routine 11/21/19 11:32 Consult General Surgery Routine Procedures Performed Operation Date: 11/23/19 10:20 Actual Procedures p Incision and Drainage of Perirectal Abscess(Not Applicable) - Kaveh Beard MD, FACS Ordered Studies 11/20/19 18:01 CT abd pelvis oral and IV con Urgent 11/21 CXR 11/24/19 07:00 CT abd pelvis IV con only Routine Hospital Course (1) Perirectal abscess: Presented with pain ongoing for weeks -- had originally been set up to see colorectal specialist but pain worsened prior to appointment. CT with 1.8 x 1.3cm LEFT perirectal abscess. General Surgery consulted s/p I&D L perirectal abscess by Dr. Beard Placed on Zosyn but switched to Cipro/Flagyl given elevation in LFTs which then trended down. Had flushing/rash with Cipro and improved with Benadryl. Transitioned to Augmentin PO following and sent with course for additional 7 days in addition to pain medication GI consulted -- Crohns antibodies pending at time of discharge and will need outpatient follow up in 1-2 weeks with colonoscopy for further evaluation WBC trended down Culture from abscess preliminary with low counts mixed probable GI microbiota (2) Elevated LFTs: Improving -- thought to be related to Zosyn and improved once discontinued Repeat CT A/P without abscess or abn Follow up with PCP (3) Rectal pain: Improved. Secondary to above (4) Leukocytosis: Resolved- WBC 10.1 prior to d/c down from 15.5k on admission (5) Psoriatic arthritis: Chronic Continued home plaquenil while inpatient but patient did not receive her avara (non-formulary and patient ok without per her account -- was started last week, every other day, in place of sulfasalazine) To follow up outpatient with head and neck surgeon/pcp (6) Bilateral pulmonary embolism: Hx of -- August 2018 following knee surgery, however per patient, follows with Dr. Reis and was told will be on lifelong anticoagulation with Xarelto as she is positive for lupus ab Given SQ Heparin post-operatively as Xarelto was on hold for OR. Resumed evening of discharge Follow up with Dr. Reis as previously scheduled for routine care/follow-up (7) Nausea: Reported prior to OR but not since that time (8) DVT (deep venous thrombosis): Hx- Leading to PE 2018 as above Xarelto as above -- to resume evening 11/24 (9) Acid reflux: Protonix in lieu of omeprazole as patient on [employer] -- resume home medication at discharge (10) Lupus anticoagulant disorder: Noted- Xarelto as above (11) DVT prophylaxis: Xarelto Total Time Total Time Spent Total Time Spent (In Minutes): 70 Discharge Plan Discharge Items Patient Disposition: Home - Self-Care Reason For Visit: RECTAL PAIN UNBEARABLE Discharge Diagnosis: perirectal abscess Condition on Discharge: Fair Activity: As commented below Activity Comment: light activity for 2 weeks Bathing Comment: may shower/ take bath Sexual Activity: When tolerated Driving/Machine Use: Resume 1 day after discharge Non-emergency contact: Primary Care Provider and Surgeon Call non-emergency contact if: you have any medication questions, your symptoms worsen and your pain is not controlled Follow-up/Referrals: Kaveh Beard MD, FACS [Physician] - 11/26/19 10:15 am Gary Cobian [Physician] - 12/15/19 12:40 pm Darryl Medina [Primary Care Provider] - 11/29/19 2:30 pm Diet: Regular Addtl Attending Provider Instructions: You have been hospitalized and found to have a perirectal abscess. You were seen by gastroenterology and general surgery and taken to the OR for incision and drainage. Cultures show pin-point growth and you will be called if any changes need to be made. You were treated with IV antibiotics and will continue on Augmentin for the next 7 days. You have also been sent a probiotic as this does tend to cause abdominal discomfort. Please notify your PCP if you develop worsening diarrhea as discussed. You should resume your Xarelto tonight and follow up with Dr. Ries as regularly scheduled. Please keep follow up with Dr Beard's office to check on progress tomorrow and then again in 1 week. You should follow up with Dr. Cobian's (GI) office as scheduled and will need an outpatient colonoscopy to evaluate for Crohn's/Inflammatory Bowel Disease. Antibody testing is still pending but is not definitive for diagnosis and colonoscopy will confirm. Their office number is if you have any questions. Regarding your surgery: SPECIAL CARE INSTRUCTIONS: * Cover incisions and change daily for comfort/drainage. will need erica pad for 1-2 weeks * Expect some swelling and bruising. Call your doctor if: * Temperature above 101 degrees * Pain not relieved by pain medicine ordered * There is increased drainage or redness from any incision * You have any unanswered questions or concerns [phone]. FOLLOW UP VISIT: If not already scheduled, please call the office for a follow-up visit. for tomorr, Friday - check up-please call OFFICE PHONE NUMBER: Dr. Beard Office Please follow up with your primary care provider to monitor your progress. Please return to the emergency department with any worsening pain, fevers, shortness of breath, or for any other symptoms that are concerning for you. It has been a pleasure being a part of the medical team providing for you while you have been hospitalized. Take care! Pending Studies at Discharge: Yes Studies:: Anti-proteinase 3, Anti-myeloperoxidase, ANCA, S cerevisiae IgG Ab, S cerevisiae IgA Ab Abscess Wound culture-- pin-point growth, re-incubating Stand-Alone Forms: [facility], Work/School Release (Inpt), Smoking Cessation Medications and DC Order Prescriptions: New oxycodone 5 mg tablet 5 - 10 mg PO Q6H PRN (Reason: pain) Qty: 30 RF: 0 amoxicillin-pot clavulanate [Augmentin] 875-125 mg tablet 1 tab PO BID Qty: 14 RF: 1 Lactobacillus acidophilus 1 billion cell capsule 1,000 mmu cells PO DAILY 7 Days Qty: 7 RF: 0 Continued omeprazole 10 mg capsule,delayed release(DR/EC) 10 mg PO QAM RF: 0 hydroxychloroquine 200 mg tablet 200 mg PO BID RF: 0 Xarelto 20 mg tablet 20 mg PO QPM RF: 0 leflunomide 10 mg tablet 10 mg PO Q2D RF: 0 topiramate 25 mg Tablet 25 mg PO BID RF: 0 ferrous sulfate [iron] 325 mg (65 mg iron) Tablet 325 mg PO DAILY RF: 0 Discharge Orders: Discharge Order (Routine); Ordered 11/25/19 Ordered By: Lily Cancino/Other Patient Handouts: Understanding Perianal Abscess Admission Data Admit Date/Time: 11/20/19 23:39 Attending Provider: Lily Haas Admit Provider: Jeremiah Stevens Primary Care Provider: Darryl Medina Other Providers: Bear Merino ; Aroldo Boston ; Kaveh Beard Other Interventions: Discharge Summary Assessment (RN) Last Done: 11/25/19 12:00 Supervising Physician Co-Signing Physician Notes PA Supervision Note: I personally saw and examined the patient. I verified all pratt points and agree with ROGELIO Christianson with the following exceptions and/or additions: Patient feeling much better, pain is controlled. The [place] drain was removed as it was partially falling out and was causing pain. Patient denies chest pain or shortness of breath, no nausea or vomiting. No calf pain or leg swelling. She is tolerating p.o. She moved her bowels today. Vitals reviewed Gen: AAOx3, NAD HEENT: Anicteric sclerae, EOMI CV: RRR no mgr nl S1S2 Pulm: CTAB no wcr Abd: +BS soft NT ND no masses or hernias, to the left of the anus with incision with scant purulent drainage, no erythema surrounding Ext: No edema, 2+ DP pulses, no calf tenderness, negative Homans sign Skin: No rashes, warm/dry Neuro: Full strength throughout 44-year-old female here with perirectal abscess now status post I&D. Anat drain was removed prior to discharge Continue Augmentin on discharge Follow-up final culture when available Resume Xarelto tonight Stable for discharge Coding Level of Care Code D/C Day Management >30 mins Diagnoses Perirectal abscess K61.1 Elevated LFTs R79.89 Rectal pain K62.89 Leukocytosis D72.829 Leukocytosis type: unspecified Psoriatic arthritis L40.50 Bilateral pulmonary embolism I26.99 Nausea R11.0 DVT (deep venous thrombosis) I82.401 Affected thrombotic vein of extremity: unspecified vein of extremity Chronicity: unspecified DVT location: lower extremity Laterality: right Acid reflux K21.9 Lupus anticoagulant disorder D68.62 DVT prophylaxis Z29.9
[2019-11-26 00:56] LABS: ANCA Screen Negative (Negative); Myeloperoxidase Ab <1.0 AI (<1.0); Proteinase-3 AB <1.0 AI (<1.0)
== END 2019-11-25 12:33 | disposition home or self-care (01) | DRG 345 ==
LOC: ED 17:12 → SUATTDRO 23:39 → 3W 23:39